=== PATIENT | female | born 1930 | race Caucasian/White ===

== ENCOUNTER 2017-05-19 21:59 | Emergency (ER) | payer OTHER ==
[~2017-05-19] VITALS: Ht 157.5 cm; Wt 73.9 kg
[~2017-05-19 21:59] MED LIST: CALC-20 PO; CHOL400C PO; DOCU100C31 PO; HYDR25TA4 PO; MULTTAB58 PO; NRN100 PO; POLY335019 PO; PROP120C PO; TRAM-10 PO
[2017-05-19] MEDS ORDERED: ALBUT/IPRATROP 3MG/0.5MG NEB 3 ML VIAL INH STA (22:08)
[2017-05-19] MEDS ORDERED: MoRPHine SULFATE 4 MG/ML 1 ML CARP\\VIAL IV STA (22:15)
[2017-05-19 22:24] VITALS: Ht 157.5 cm; Wt 73.9 kg
[2017-05-19 22:33] LABS: ISTAT CREATININE 0.8 mg/dl (0.6-1.3); ISTAT HEMOGLOBIN 10.9 g/dl (12.0-16.0); ISTAT IONIZED CALCIUM 1.22 mmol/l (1.12-1.32)
--- NOTE | 2017-05-19 22:34 | DIAGNOSTIC IMAGING REPORT ---
CHEST ONE VIEW PORTABLE HISTORY: 86 years-old Female sob acute shortness of breath COMPARISON: Chest radiograph 03/01/2016 TECHNIQUE: Portable upright AP view of the chest FINDINGS: Cardiomediastinal and hilar silhouettes are within normal limits. Atherosclerosis of the aorta. No pneumothorax, pleural effusion or focal airspace consolidation. Mild biapical pleural parenchymal scarring redemonstrated. There are degenerative changes of the spine and shoulders. Intramedullary gerda of the left humerus is noted with 2 proximal fixation screws. Remote left-sided rib fractures. IMPRESSION: No acute cardiopulmonary process. The above report was generated using voice recognition software. It may contain grammatical, syntax or spelling errors. Electronically signed by: Maged Andrade M.D. 05/19/2017 10:32 PM Dictated Date/Time: 05/19/2017 10:30 PM
[2017-05-19 22:36] LABS: BASO % 0.3 %; BASO ABS # 0.05 K/uL (0-0.2); HEMATOCRIT 31.7 % (37-47); IG% 1.8 %; LYMPH ABS # 2.01 K/uL (1.2-3.4); MEAN CELL VOLUME 92.2 fL (80-100); MEAN CORPUSCULAR HEMOGLOBIN 29.1 pg (25-34); MEAN CORPUSCULAR HGB CONC 31.5 g/dl (32-36); MONO % 3.1 %; NEUT % 78.8 %; PLATELET COUNT 330 K/uL (130-400); RED BLOOD COUNT 3.44 M/uL (4.2-5.4); WHITE BLOOD COUNT 14.35 K/uL (4.8-10.8)
--- NOTE | 2017-05-19 22:54 | DIAGNOSTIC IMAGING REPORT ---
HEAD WITHOUT CONTRAST (CT) CLINICAL HISTORY: 86 years-old Female with fall, hit head, CP/sob. Acute shortness of breath with head trauma TECHNIQUE: Multiple axial CT images of the head were obtained without contrast. A dose lowering technique was utilized adhering to the principles of ALARA. COMPARISON: None. FINDINGS: No acute intracranial hemorrhage, midline shift, mass, large territorial ischemia or abnormal extra-axial collection. Mild atrophy. Ill-defined areas of low attenuation within the subcortical, deep and periventricular white matter suggests chronic microvascular ischemic changes. The calvarium is intact. The paranasal sinuses, mastoid air cells, and middle ear cavities are clear. IMPRESSION: 1. No acute intracranial abnormality. Negative for hemorrhage or calvarial fracture. 2. Atrophy with chronic microvascular ischemic changes. The above report was generated using voice recognition software. It may contain grammatical, syntax or spelling errors. Electronically signed by: Maged Andrade M.D. 05/19/2017 10:53 PM Dictated Date/Time: 05/19/2017 10:51 PM
[2017-05-19 22:58] LABS: BLOOD UREA NITROGEN 14 mg/dl (7-18); BUN/CREATININE RATIO 17.7 (10-20); CALCIUM 9.3 mg/dl (8.5-10.1); CARBON DIOXIDE 30 mmol/L (21-32); CHLORIDE 101 mmol/L (98-107); CREATININE 0.81 mg/dl (0.60-1.20); GLUCOSE 108 mg/dl (70-99); POTASSIUM 3.6 mmol/L (3.5-5.1); SODIUM 138 mmol/L (136-145)
[2017-05-19] MEDS ORDERED: OPTIRAY 320 IV PRN (23:00)
--- NOTE | 2017-05-19 23:08 | DIAGNOSTIC IMAGING REPORT ---
CHEST CT WITH CONTRAST HISTORY: Acute trauma status post fall fall, hit head, CP/sob TECHNIQUE: Multiaxial CT images of the chest were performed following the intravenous administration of contrast. A dose lowering technique was utilized adhering to the principles of ALARA. COMPARISON: CT thoracic spine of same day FINDINGS: thyroid goiter noted. No pathologic adenopathy. Moderate enlargement of the heart without pericardial effusion. Moderate plaquing of the thoracic aorta without aneurysm or dissection. The opacified pulmonary arterial tree is unremarkable. Trace left pleural effusion. Small to moderate left pneumothorax with visceral pleural separation measuring up to 1.7 cm at the apex. Pulmonary contusion of the left lung apex is noted measuring up to 2.5 x 2.1 cm. Mild biapical pleural parenchymal scarring. Central airways are patent. No acute amount of the imaged upper abdomen. Gallstones are partially imaged. Acute mildly comminuted fractures are seen involving the left posterior second, third and fourth ribs. There is mild displacement of the second rib fracture. Deep tissue air noted adjacent to the rib fractures. Degenerative changes of the spine. Compression deformity at L1 further discussed on spine CT's. IMPRESSION: 1. Small to moderate left-sided hydropneumothorax with pleural separation measuring 1.7 cm of the left lung apex secondary to mildly comminuted and mildly displaced fractures of the left posterior second, third and fourth ribs. Small pulmonary contusion of the apical posterior segment left upper lobe also noted. 2. Compression deformity of L1 further discussed on CT lumbar spine study of same day. 3. Cholelithiasis. 4. Thyroid goiter. Electronically signed by: Maged Andrade M.D. 05/19/2017 11:06 PM Dictated Date/Time: 05/19/2017 10:59 PM
--- NOTE | 2017-05-19 23:11 | DIAGNOSTIC IMAGING REPORT ---
CERVICAL SPINE W/O CLINICAL HISTORY: 86 years-old Female with fall, hit head, CP/sob. Acute neck injury status post fall COMPARISON: CT head and CT chest of same day. TECHNIQUE: Multiple axial CT images of the cervical spine were obtained without contrast. A dose lowering technique was utilized adhering to the principles of ALARA. FINDINGS: No acute fracture or dislocation identified involving the cervical spine. Trace left mastoid effusion. The bones appear osteopenic. Multilevel facet arthropathy, intervertebral disc space narrowing and endplate spurring throughout the cervical spine results in varying degrees of central canal and foraminal narrowing, sensitivity of which is better determined by MR. Comminuted fractures are seen involving the posterior aspects of the left second third ribs with associated deep tissue air and left-sided hydropneumothorax. Left apical pulmonary contusion. Secretions noted within the esophagus. Thyroid goiter noted. Atherosclerosis of the carotid bulbs. IMPRESSION: 1. No acute cervical spine fracture or subluxation. 2. Comminuted fractures of the posterior left second and third ribs with left sided hydropneumothorax and left apical pulmonary contusion. These findings are further discussed on chest CT of same day. 3. Thyroid goiter. 4. Multilevel degenerative changes of the cervical spine. The above report was generated using voice recognition software. It may contain grammatical, syntax or spelling errors. Electronically signed by: Maged Andrade M.D. 05/19/2017 11:09 PM Dictated Date/Time: 05/19/2017 11:06 PM
--- NOTE | 2017-05-19 23:22 | DIAGNOSTIC IMAGING REPORT ---
THORACIC SPINE WITHOUT HISTORY: 86 years-old Female fall, hit head, CP/sob acute back injury status post fall COMPARISON: CT chest and CT lumbar spine of same day TECHNIQUE: Multiple axial CT images of the thoracic spine were obtained without contrast. A dose lowering technique was used consistent with the principals of ALARA. FINDINGS: Age-indeterminate 30% compression deformity of the L1 vertebral body is noted with 3 mm retropulsion involving the posterior inferior endplate. Advanced endplate degenerative changes are also noted at this level. No additional compression deformity or malalignment identified. The bones appear osteopenic. Multilevel endplate spurring and intervertebral disc space narrowing. Comminuted fractures of multiple left ribs are seen as discussed on chest CT. Left sided hydropneumothorax redemonstrated. No high-grade central canal narrowing identified.. Thyroid goiter. IMPRESSION: 1. No acute fracture or subluxation of the thoracic spine identified. 2. Age-indeterminate 30% anterior endplate compression deformity of L1 with 3 mm retropulsion. 3. Multiple left-sided rib fractures with left hydropneumothorax again seen, as discussed on CT chest of same day. The above report was generated using voice recognition software. It may contain grammatical, syntax or spelling errors. Electronically signed by: Maged Andrade M.D. 05/19/2017 11:21 PM Dictated Date/Time: 05/19/2017 11:16 PM
--- NOTE | 2017-05-19 23:28 | DIAGNOSTIC IMAGING REPORT ---
LUMBAR SPINE WITHOUT HISTORY: 86 years-old Female fall, hit head, CP/sob acute back injury status post fall COMPARISON: CT thoracic spine of same day TECHNIQUE: Multiple axial CT images of the lumbar spine were obtained without contrast. A dose lowering technique was used consistent with the principals of ALARA. FINDINGS: 30% anterior endplate compression deformity of L1 with 3 mm retropulsion. Multilevel advanced discogenic degenerative changes and facet arthropathy. Mild levoscoliosis. Degenerative changes involve the bilateral SI joints. No sacral fracture identified. Bones appear moderately demineralized. Atherosclerosis of the aorta with mild ectasia, 2.1 cm. No acute intra-abdominal or paraspinal abnormality. 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 IMPRESSION: 1. 30% anterior endplate compression deformity of L1 with 3 mm retropulsion is age indeterminate without comparison. 2. Multilevel discogenic degenerative changes, spondylitic spurring and facet arthropathy. 3. 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 The above report was generated using voice recognition software. It may contain grammatical, syntax or spelling errors. Electronically signed by: Maged Andrade M.D. 05/19/2017 11:26 PM Dictated Date/Time: 05/19/2017 11:23 PM
--- NOTE | 2017-05-19 23:32 | DIAGNOSTIC IMAGING REPORT ---
ABDOMEN AND PELVIS CT WITH IV CONTRAST HISTORY: Acute trauma status post fall fall, hit head, CP/sob TECHNIQUE: Multiaxial CT images of the abdomen and pelvis were performed following the use of intravenous contrast. A dose lowering technique was utilized adhering to the principles of ALARA. COMPARISON STUDY: CT chest of same day. FINDINGS: Study is moderately limited secondary to motion artifact. Small moderate left-sided hydropneumothorax redemonstrated. Right lung base is clear. No pneumoperitoneum. No pneumatosis identified. Imaged inferior cardiac chambers are unremarkable. 7 mm low attenuating lesion of the posterior right hepatic lobe is indeterminate and may reflect a cyst. No intrahepatic biliary ductal dilation. Cholelithiasis without CT evidence of acute cholecystitis. Spleen and adrenal glands are unremarkable. 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 Moderate to severe diffuse pancreatic atrophy noted. Renal sinus cysts are present bilaterally. Mild renal parenchyma thinning is noted bilaterally without renal calculi or hydronephrosis. Urinary bladder and pelvic structures are suboptimally evaluated secondary to streak artifact from right hip arthroplasty. Atherosclerosis of the aorta with mild ectasia, 2.1 cm. No aneurysm. No bulky adenopathy. There is no bowel obstruction or focal bowel wall thickening. Moderate colonic diverticulosis without diverticulitis. Soft tissues are unremarkable. 30% anterior plate compression deformity of L1 with 3 mm retropulsion is age indeterminate. The bones appear osteoporotic. No sacral fracture identified. Multilevel degenerative changes of the spine. IMPRESSION: 1. Small to moderate left-sided hydropneumothorax redemonstrated. 2. 30% anterior endplate compression deformity of L1 with 3 mm retropulsion is age indeterminate without comparison. 3. No evidence of solid organ injury or pneumatosis. 4. Cholelithiasis. 5. Sigmoid colon diverticulosis. Electronically signed by: Maged Andrade M.D. 05/19/2017 11:31 PM Dictated Date/Time: 05/19/2017 11:26 PM
[2017-05-20] MEDS ORDERED: SODIUM CHLORIDE 0.9% 1000ML 1,000 ML IV STA (00:03)
[2017-05-20 00:13] LABS: ANISOCYTOSIS PRESENT; COMPLETE YES; OVALOCYTES 1+; POIKILOCYTOSIS PRESENT
[2017-05-20] MEDS ORDERED: MoRPHine SULFATE 4 MG/ML 1 ML CARP\\VIAL IV STA (00:40)
--- NOTE | 2017-05-20 00:58 | EMERGENCY ROOM VISIT NOTE ---
ED Visit Note First contact with patient: 22:02 I have seen and examined this patient with Jahaira Mayers and generally agree with the treatment plan as discussed. Problem List Medical Problems: (1) Cerebrovascular disease Status: Chronic (2) Cholelithiasis Status: Chronic (3) CVA (cerebral infarction) Permanent Comment: noted on head CT, not clinically evident, no residual Status: Resolved (4) Diverticular disease of colon Status: Chronic (5) Diverticulitis Status: Resolved (6) Dyslipidemia Status: Chronic (7) Hip fracture Status: Resolved (8) History of cervical cancer Status: Chronic (9) History of Clostridium difficile infection Status: Chronic (10) History of DVT (deep vein thrombosis) Permanent Comment: 1998 associated with ankle fracture Status: Resolved (11) Hypertension Status: Chronic (12) Migraine Status: Chronic Surgical Problems: (1) S/P knee replacement Status: Chronic (2) Status post appendectomy Status: Chronic (3) Status post cardiac catheterization Permanent Comment: [facility] 2008 minimal nonocclusive disease Status: Chronic (4) Status post hysterectomy Permanent Comment: cervical Ca Status: Chronic Current/Historical Medications Scheduled Calcium Carbonate-Vitamin D (Calcium 600 + D), 1 TAB PO DAILY Cholecalciferol (Vitamin D3 400), 400 UNITS PO DAILY Gabapentin (Gabapentin), 200 MG PO HS Hydrochlorothiazide (Hctz), 25 MG PO DAILY Multiple Vitamin (Multivitamin), 1 TAB PO DAILY Propranolol Hcl (Propranolol Hcl Er), 120 MG PO DAILY Scheduled PRN Docusate Sodium (Docusate Sodium), 100 MG PO BID PRN for Constipation Polyethylene Glycol 3350 (Miralax), 17 GM PO DAILY PRN for Constipation Tramadol (Ultram), 100 MG PO BID PRN for Pain Allergies Coded Allergies: No Known Allergies (Unverified , 03/01/16) Vital Signs Date Time Temp Pulse Resp B/P (MAP) Pulse Ox O2 Delivery O2 Flow Rate FiO2 05/20/17 00:36 64 21 97 Nasal Cannula 4.0 05/20/17 00:31 124/110 05/20/17 00:21 71 23 95 05/20/17 00:06 65 21 97 05/19/17 23:51 66 23 100 05/19/17 23:46 124/74 05/19/17 23:36 62 19 98 05/19/17 23:31 110/57 05/19/17 23:30 65 22 99 Nasal Cannula 4.0 05/19/17 23:17 127/91 05/19/17 23:15 66 18 100 05/19/17 23:01 123/73 05/19/17 23:00 67 21 100 05/19/17 22:55 67 20 152/74 100 Mask 5.0 05/19/17 22:30 64 20 137/84 99 Nasal Cannula 2.0 05/19/17 22:24 36.6 65 22 142/113 88 Room Air 05/19/17 22:13 62 Laboratory Results 05/19/17 22:15 Red Blood Count 3.44, Mean Corpuscular Volume 92.2, Mean Corpuscular Hemoglobin 29.1, Mean Corpuscular Hemoglobin Concent 31.5, Mean Platelet Volume 11.0, Neutrophils (%) (Auto) 78.8, Lymphocytes (%) (Auto) 14.0, Monocytes (%) (Auto) 3.1, Eosinophils (%) (Auto) 2.0, Basophils (%) (Auto) 0.3, Neutrophils # (Auto) 11.29, Lymphocytes # (Auto) 2.01, Monocytes # (Auto) 0.45, Eosinophils # (Auto) 0.29, Basophils # (Auto) 0.05 05/19/17 22:15 Test 05/19/17 22:15 05/19/17 22:19 White Blood Count 14.35 K/uL (4.8-10.8) Red Blood Count 3.44 M/uL (4.2-5.4) Hemoglobin 10.0 g/dL (12.0-16.0) Hematocrit 31.7 % (37-47) Mean Corpuscular Volume 92.2 fL (80-100) Mean Corpuscular Hemoglobin 29.1 pg (25-34) Mean Corpuscular Hemoglobin Concent 31.5 g/dl (32-36) Platelet Count 330 K/uL (130-400) Mean Platelet Volume 11.0 fL (7.4-10.4) Neutrophils (%) (Auto) 78.8 % Lymphocytes (%) (Auto) 14.0 % Monocytes (%) (Auto) 3.1 % Eosinophils (%) (Auto) 2.0 % Basophils (%) (Auto) 0.3 % Neutrophils # (Auto) 11.29 K/uL (1.4-6.5) Lymphocytes # (Auto) 2.01 K/uL (1.2-3.4) Monocytes # (Auto) 0.45 K/uL (0.11-0.59) Eosinophils # (Auto) 0.29 K/uL (0-0.5) Basophils # (Auto) 0.05 K/uL (0-0.2) RDW Standard Deviation 69.5 fL (36.4-46.3) RDW Coefficient of Variation 20.5 % (11.5-14.5) Immature Granulocyte % (Auto) 1.8 % Immature Granulocyte # (Auto) 0.26 K/uL (0.00-0.02) Poikilocytosis PRESENT Anisocytosis PRESENT Ovalocytes 1+ Est Creatinine Clear Calc Drug Dose 46.9 ml/min Estimated GFR () 76.2 Estimated GFR (Non- 65.8 BUN/Creatinine Ratio 17.7 (10-20) Calcium Level 9.3 mg/dl (8.5-10.1) Troponin I < 0.015 ng/ml (0-0.045) Bedside Hemoglobin 10.9 g/dl (12.0-16.0) Bedside Hematocrit 32 % (37-47) Bedside Sodium 138 mEq/L (135-144) Bedside Potassium 3.6 mEq/L (3.3-5.0) Bedside Chloride 98 mEq/L (101-112) Bedside Total CO2 28 mEq/l (24-31) Anion Gap 16.0 mmol/L (16-25) Bedside Blood Urea Nitrogen 14 mg/dl (7-18) Bedside Creatinine 0.8 mg/dl (0.6-1.3) Bedside Glucose (other) 112 mg/dl (70-99) Bedside Ionized Calcium ([place]acon) 1.22 mmol/l (1.12-1.32) Medications Administered Medications (Trade) Dose Ordered Sig/Gin Route Start Time Stop Time Status Last Admin Dose Admin Albuterol/ Ipratropium (Duoneb) 3 ml NOW STAT INH 05/19/17 22:08 05/19/17 22:11 DC 05/19/17 22:29 3 ML Morphine Sulfate (MoRPHine SULFATE INJ) 4 mg NOW STAT IV 05/19/17 22:15 05/19/17 22:16 DC 05/19/17 22:29 4 MG Sodium Chloride 1,000 ml @ 75 mls/hr [id number] STAT IV 05/20/17 00:03 05/20/17 13:22 05/20/17 00:21 75 MLS/HR Morphine Sulfate (MoRPHine SULFATE INJ) 4 mg NOW STAT IV 05/20/17 00:40 05/20/17 00:41 DC 05/20/17 00:46 4 MG Departure Information Referrals Maritza Osuna D.O. (PCP) Patient Instructions On [facility]
[2017-05-20 01:06] VITALS: BP 132/77; PULSE 64; TEMP 36.6; O2SAT 97
--- NOTE | 2017-05-20 05:14 | EMERGENCY ROOM VISIT NOTE ---
History First contact with patient: 22:02 Chief Complaint: FALL Stated Complaint: FALL, LEFT BACK & RIB PAIN History of Present Illness The patient is a 86 year old female who presents to the Emergency Room with complaints of mechanical fall just prior to arrival. Patient states she slipped and fell backwards into the wall injuring her left upper back and hitting her head. Pain currently 8 out of 10. Palpation makes it worse and that makes it better. Patient is not on blood thinners. Patient denies neck pain, abdominal pain, arm pain, hip pain, leg pain. Patient complains of left upper back chest wall pain and having shortness of breath. Patient states she felt fine prior to the fall. Review of Systems See HPI for pertinent positives & negatives. A total of 10 systems reviewed and were otherwise negative. Past Medical/Surgical History Medical Problems: (1) Cerebrovascular disease (2) Cholelithiasis (3) CVA (cerebral infarction) (4) Diverticular disease of colon (5) Diverticulitis (6) Dyslipidemia (7) Hip fracture (8) History of cervical cancer (9) History of Clostridium difficile infection (10) History of DVT (deep vein thrombosis) (11) Hypertension (12) Migraine Surgical Problems: (1) S/P knee replacement (2) Status post appendectomy (3) Status post cardiac catheterization (4) Status post hysterectomy Family History Hypertension MOTHER Lung cancer BROTHER Social History Smoking Status: Never Smoker Drug Use: none Housing Status: lives alone Occupation Status: unemployed Current/Historical Medications Scheduled Calcium Carbonate-Vitamin D (Calcium 600 + D), 1 TAB PO DAILY Cholecalciferol (Vitamin D3 400), 400 UNITS PO DAILY Gabapentin (Gabapentin), 200 MG PO HS Hydrochlorothiazide (Hctz), 25 MG PO DAILY Multiple Vitamin (Multivitamin), 1 TAB PO DAILY Propranolol Hcl (Propranolol Hcl Er), 120 MG PO DAILY Scheduled PRN Docusate Sodium (Docusate Sodium), 100 MG PO BID PRN for Constipation Polyethylene Glycol 3350 (Miralax), 17 GM PO DAILY PRN for Constipation Tramadol (Ultram), 100 MG PO BID PRN for Pain Physical Exam Vital Signs Date Time Temp Pulse Resp B/P (MAP) Pulse Ox O2 Delivery O2 Flow Rate FiO2 05/20/17 01:06 36.6 64 21 132/77 97 05/20/17 00:36 64 21 97 Nasal Cannula 4.0 05/20/17 00:31 124/110 05/20/17 00:21 71 23 95 05/20/17 00:06 65 21 97 05/19/17 23:51 66 23 100 05/19/17 23:46 124/74 05/19/17 23:36 62 19 98 05/19/17 23:31 110/57 05/19/17 23:30 65 22 99 Nasal Cannula 4.0 05/19/17 23:17 127/91 05/19/17 23:15 66 18 100 05/19/17 23:01 123/73 05/19/17 23:00 67 21 100 05/19/17 22:55 67 20 152/74 100 Mask 5.0 05/19/17 22:30 64 20 137/84 99 Nasal Cannula 2.0 05/19/17 22:24 36.6 65 22 142/113 88 Room Air 05/19/17 22:13 62 Physical Exam PHYSICAL EXAM: VITALS: Vitals are noted on the nurse's note and reviewed by myself. Vital signs hypoxic GENERAL: Pleasant female working to breathe, in no acute distress, nondiaphoretic, well-developed well-nourished. SKIN: The skin was without obvious lacerations or abrasions. Capillary reflex less than 2 seconds. HEAD: Normocephalic atraumatic. EARS: External auditory canals clear, tympanic membranes pearly dasilva without erythema or effusion bilaterally. No hemotympanums. No mc sign. No mastoid tenderness. EYES: Pupils equal round and reactive to light and accommodation. Conjunctivae without injection, sclerae without icterus. Extraocular movements intact. NOSE: Patent, turbinates without inflammation or discharge. No sinus tenderness. No septal hematoma or bleeding. FACE: No facial bone tenderness. Full range of motion of the jaw without tenderness. MOUTH: Mucous membranes moist. Pharynx without erythema or exudate. Uvula midline. Airway patent. Tongue does not deviate. NECK: Supple without nuchal rigidity. Cervical spine is nontender. Full range of motion of the neck without tenderness. No JVD. HEART: Regular rate and rhythm LUNGS: Mild diffuse inspiration and end expiratory wheezes, rales or rhonchi. o retractions or accessory muscle use. Left lateral chest wall tenderness. ABDOMEN: Positive bowel sounds x 4. Normal tympanic percussion. Soft, nontender, without masses or organomegaly. No guarding or rebound tenderness. MUSCULOSKELETAL: No tenderness of the thoracic or lumbar spine. No tenderness with pelvic rocking. Full range of motion without tenderness to palpation in all extremities. Strength 5/5 throughout. Peripheral pulses 2+. NEURO: Patient was alert and oriented to person place and time. Normal Mini- Mental status exam. Normal sensation to light and sharp touch. Cerebellar function intact. No focal neurological deficits. Medical Decision & Procedures Laboratory Results 05/19/17 22:15 Red Blood Count 3.44, Mean Corpuscular Volume 92.2, Mean Corpuscular Hemoglobin 29.1, Mean Corpuscular Hemoglobin Concent 31.5, Mean Platelet Volume 11.0, Neutrophils (%) (Auto) 78.8, Lymphocytes (%) (Auto) 14.0, Monocytes (%) (Auto) 3.1, Eosinophils (%) (Auto) 2.0, Basophils (%) (Auto) 0.3, Neutrophils # (Auto) 11.29, Lymphocytes # (Auto) 2.01, Monocytes # (Auto) 0.45, Eosinophils # (Auto) 0.29, Basophils # (Auto) 0.05 05/19/17 22:15 Test 05/19/17 22:15 05/19/17 22:19 White Blood Count 14.35 K/uL (4.8-10.8) Red Blood Count 3.44 M/uL (4.2-5.4) Hemoglobin 10.0 g/dL (12.0-16.0) Hematocrit 31.7 % (37-47) Mean Corpuscular Volume 92.2 fL (80-100) Mean Corpuscular Hemoglobin 29.1 pg (25-34) Mean Corpuscular Hemoglobin Concent 31.5 g/dl (32-36) Platelet Count 330 K/uL (130-400) Mean Platelet Volume 11.0 fL (7.4-10.4) Neutrophils (%) (Auto) 78.8 % Lymphocytes (%) (Auto) 14.0 % Monocytes (%) (Auto) 3.1 % Eosinophils (%) (Auto) 2.0 % Basophils (%) (Auto) 0.3 % Neutrophils # (Auto) 11.29 K/uL (1.4-6.5) Lymphocytes # (Auto) 2.01 K/uL (1.2-3.4) Monocytes # (Auto) 0.45 K/uL (0.11-0.59) Eosinophils # (Auto) 0.29 K/uL (0-0.5) Basophils # (Auto) 0.05 K/uL (0-0.2) RDW Standard Deviation 69.5 fL (36.4-46.3) RDW Coefficient of Variation 20.5 % (11.5-14.5) Immature Granulocyte % (Auto) 1.8 % Immature Granulocyte # (Auto) 0.26 K/uL (0.00-0.02) Poikilocytosis PRESENT Anisocytosis PRESENT Ovalocytes 1+ Est Creatinine Clear Calc Drug Dose 46.9 ml/min Estimated GFR () 76.2 Estimated GFR (Non- 65.8 BUN/Creatinine Ratio 17.7 (10-20) Calcium Level 9.3 mg/dl (8.5-10.1) Troponin I < 0.015 ng/ml (0-0.045) Bedside Hemoglobin 10.9 g/dl (12.0-16.0) Bedside Hematocrit 32 % (37-47) Bedside Sodium 138 mEq/L (135-144) Bedside Potassium 3.6 mEq/L (3.3-5.0) Bedside Chloride 98 mEq/L (101-112) Bedside Total CO2 28 mEq/l (24-31) Anion Gap 16.0 mmol/L (16-25) Bedside Blood Urea Nitrogen 14 mg/dl (7-18) Bedside Creatinine 0.8 mg/dl (0.6-1.3) Bedside Glucose (other) 112 mg/dl (70-99) Bedside Ionized Calcium (Deacon) 1.22 mmol/l (1.12-1.32) Medications Administered Medications (Trade) Dose Ordered Sig/Gin Route Start Time Stop Time Status Last Admin Dose Admin Albuterol/ Ipratropium (Duoneb) 3 ml NOW STAT INH 05/19/17 22:08 05/19/17 22:11 DC 05/19/17 22:29 3 ML Morphine Sulfate (MoRPHine SULFATE INJ) 4 mg NOW STAT IV 05/19/17 22:15 05/19/17 22:16 DC 05/19/17 22:29 4 MG Sodium Chloride 1,000 ml @ 75 mls/hr [id number] STAT IV 05/20/17 00:03 05/20/17 02:24 DC 05/20/17 00:21 75 MLS/HR Morphine Sulfate (MoRPHine SULFATE INJ) 4 mg NOW STAT IV 05/20/17 00:40 05/20/17 00:41 DC 05/20/17 00:46 4 MG ED Course Prior records/ancillary studies reviewed. Triage Nursing notes reviewed. Additional history obtained from family The patient's history was concerning for traumatic injury Differential diagnosis: Etiologies such as fracture, dislocation, intra-abdominal, pneumothorax, intrathoracic , intracranial, neurologic, as well as other traumatic pathologies were entertained. Physical examination findings: As above. The patients vitals were hypoxic. ER treatment provided: IV Normal Saline hydration, 75 mL.hr Morphine, Zofran On reassessment the patient felt better. Vital signs were improving. Diagnostic interpretation by me: A 12 lead ECG revealed no emergent pathology. Normal sinus, normal intervals, no acute ST-T wave changes. Low voltage. Impression normal sinus rhythm with low voltage interpreted by myself The labs revealed anemia. Negative troponin Imaging studies: Chest x-ray concerning for left pneumothorax per my interpretation [~ rep ct add3]] CHEST CT WITH CONTRAST HISTORY: Acute trauma status post fall fall, hit head, CP/sob TECHNIQUE: Multiaxial CT images of the chest were performed following the intravenous administration of contrast. A dose lowering technique was utilized adhering to the principles of ALARA. COMPARISON: CT thoracic spine of same day FINDINGS: thyroid goiter noted. No pathologic adenopathy. Moderate enlargement of the heart without pericardial effusion. Moderate plaquing of the thoracic aorta without aneurysm or dissection. The opacified pulmonary arterial tree is unremarkable. Trace left pleural effusion. Small to moderate left pneumothorax with visceral pleural separation measuring up to 1.7 cm at the apex. Pulmonary contusion of the left lung apex is noted measuring up to 2.5 x 2.1 cm. Mild biapical pleural parenchymal scarring. Central airways are patent. No acute amount of the imaged upper abdomen. Gallstones are partially imaged. Acute mildly comminuted fractures are seen involving the left posterior second, third and fourth ribs. There is mild displacement of the second rib fracture. Deep tissue air noted adjacent to the rib fractures. Degenerative changes of the spine. Compression deformity at L1 further discussed on spine CT's. IMPRESSION: 1. Small to moderate left-sided hydropneumothorax with pleural separation measuring 1.7 cm of the left lung apex secondary to mildly comminuted and mildly displaced fractures of the left posterior second, third and fourth ribs. Small pulmonary contusion of the apical posterior segment left upper lobe also noted. 2. Compression deformity of L1 further discussed on CT lumbar spine study of same day. 3. Cholelithiasis. 4. Thyroid goiter. ABDOMEN AND PELVIS CT WITH IV CONTRAST HISTORY: Acute trauma status post fall fall, hit head, CP/sob TECHNIQUE: Multiaxial CT images of the abdomen and pelvis were performed following the use of intravenous contrast. A dose lowering technique was utilized adhering to the principles of ALARA. COMPARISON STUDY: CT chest of same day. FINDINGS: Study is moderately limited secondary to motion artifact. Small moderate left-sided hydropneumothorax redemonstrated. Right lung base is clear. No pneumoperitoneum. No pneumatosis identified. Imaged inferior cardiac chambers are unremarkable. 7 mm low attenuating lesion of the posterior right hepatic lobe is indeterminate and may reflect a cyst. No intrahepatic biliary ductal dilation. Cholelithiasis without CT evidence of acute cholecystitis. Spleen and adrenal glands are unremarkable. 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 Moderate to severe diffuse pancreatic atrophy noted. Renal sinus cysts are present bilaterally. Mild renal parenchyma thinning is noted bilaterally without renal calculi or hydronephrosis. Urinary bladder and pelvic structures are suboptimally evaluated secondary to streak artifact from right hip arthroplasty. Atherosclerosis of the aorta with mild ectasia, 2.1 cm. No aneurysm. No bulky adenopathy. There is no bowel obstruction or focal bowel wall thickening. Moderate colonic diverticulosis without diverticulitis. Soft tissues are unremarkable. 30% anterior plate compression deformity of L1 with 3 mm retropulsion is age indeterminate. The bones appear osteoporotic. No sacral fracture identified. Multilevel degenerative changes of the spine. IMPRESSION: 1. Small to moderate left-sided hydropneumothorax redemonstrated. 2. 30% anterior endplate compression deformity of L1 with 3 mm retropulsion is age indeterminate without comparison. 3. No evidence of solid organ injury or pneumatosis. 4. Cholelithiasis. 5. Sigmoid colon diverticulosis. HEAD WITHOUT CONTRAST (CT) CLINICAL HISTORY: 86 years-old Female with fall, hit head, CP/sob. Acute shortness of breath with head trauma TECHNIQUE: Multiple axial CT images of the head were obtained without contrast. A dose lowering technique was utilized adhering to the principles of ALARA. COMPARISON: None. FINDINGS: No acute intracranial hemorrhage, midline shift, mass, large territorial ischemia or abnormal extra-axial collection. Mild atrophy. Ill-defined areas of low attenuation within the subcortical, deep and periventricular white matter suggests chronic microvascular ischemic changes. The calvarium is intact. The paranasal sinuses, mastoid air cells, and middle ear cavities are clear. IMPRESSION: 1. No acute intracranial abnormality. Negative for hemorrhage or calvarial fracture. 2. Atrophy with chronic microvascular ischemic changes. The above report was generated using voice recognition software. It may contain grammatical, syntax or spelling errors. HISTORY: 86 years-old Female fall, hit head, CP/sob acute back injury status post fall COMPARISON: CT thoracic spine of same day TECHNIQUE: Multiple axial CT images of the lumbar spine were obtained without contrast. A dose lowering technique was used consistent with the principals of ALARA. FINDINGS: 30% anterior endplate compression deformity of L1 with 3 mm retropulsion. Multilevel advanced discogenic degenerative changes and facet arthropathy. Mild levoscoliosis. Degenerative changes involve the bilateral SI joints. No sacral fracture identified. Bones appear moderately demineralized. Atherosclerosis of the aorta with mild ectasia, 2.1 cm. No acute intra-abdominal or paraspinal abnormality. 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 IMPRESSION: 1. 30% anterior endplate compression deformity of L1 with 3 mm retropulsion is age indeterminate without comparison. 2. Multilevel discogenic degenerative changes, spondylitic spurring and facet arthropathy. 3. 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 Electronically signed by: Maged Andrade M.D. Electronically signed by: Maged Andrade M.D. CERVICAL SPINE W/O CLINICAL HISTORY: 86 years-old Female with fall, hit head, CP/sob. Acute neck injury status post fall COMPARISON: CT head and CT chest of same day. TECHNIQUE: Multiple axial CT images of the cervical spine were obtained without contrast. A dose lowering technique was utilized adhering to the principles of ALARA. FINDINGS: No acute fracture or dislocation identified involving the cervical spine. Trace left mastoid effusion. The bones appear osteopenic. Multilevel facet arthropathy, intervertebral disc space narrowing and endplate spurring throughout the cervical spine results in varying degrees of central canal and foraminal narrowing, sensitivity of which is better determined by MR. Comminuted fractures are seen involving the posterior aspects of the left second third ribs with associated deep tissue air and left-sided hydropneumothorax. Left apical pulmonary contusion. Secretions noted within the esophagus. Thyroid goiter noted. Atherosclerosis of the carotid bulbs. IMPRESSION: 1. No acute cervical spine fracture or subluxation. 2. Comminuted fractures of the posterior left second and third ribs with left sided hydropneumothorax and left apical pulmonary contusion. These findings are further discussed on chest CT of same day. 3. Thyroid goiter. 4. Multilevel degenerative changes of the cervical spine. The above report was generated using voice recognition software. It may contain grammatical, syntax or spelling errors. Consultation: A consultation was placed with Dr. Rashad Castaneda. The case was discussed and diagnostics were reviewed. The patient was transferred to their facility for further evaluation and treatment for multiple rib fractures, pneumothorax and pulmonary contusion. This appears to be consistent with pneumothorax, pulmonary contusion and rib fractures. Patient states she is a full code and would like being done for her tonight. Patient was reassessed multiple times. She had great improvement after being medicated as above. She had multiple injuries and was transferred to a trauma center. She pneumothorax with multiple rib fractures and low O2 sats. Her O2 sats came up nicely with a few liters nasal cannula. She has a chronic appearing lumbar compression fracture which is known per patient. Patient did not have acute abdomen on exam. She was speaking in full sentences. She is not on blood thinners. By the evaluation outlined above emergent etiologies such as intra-abdominal, hemothorax, intracranial, neurologic,as well as others were deemed relatively unlikely. The pt informed about the findings as listed above. All questions were answered and pleased with the treatment. Case reviewed with my attending Medical Decision As above Head Trauma GCS Score: 15 Medication Reconcilliation Current Medication List: was personally reviewed by me Blood Pressure Screening Patient's blood pressure: Normal blood pressure Impression Primary Impression: Pneumothorax Additional Impressions: Pulmonary contusion Ribs, multiple fractures Fall Head injury Anemia Departure Information Dispostion Transfer Acute Care Facility Condition [facility] Referrals Maritza Osuna D.O. (PCP) Forms HOME CARE DOCUMENTATION FORM, IMPORTANT VISIT INFORMATION Patient Instructions My [facility] Problem Qualifiers Primary Impression: Pneumothorax Pneumothorax type: traumatic Encounter type: initial encounter Qualified Codes: S27.0XXA - Traumatic pneumothorax, initial encounter
== END 2017-05-20 01:07 | disposition short-term general hospital (02) ==
LOC: EDBD 21:59 → C.EDA 22:00
DX: S27.0XXA Traumatic pneumothorax, initial encounter (principal); S27.321A Contusion of lung, unilateral, initial encounter; S22.42XA Multiple fractures of ribs, left side, initial encounter for closed fracture; S09.90XA Unspecified injury of head, initial encounter; D64.9 Anemia, unspecified; W01.198A Fall on same level from slipping, tripping and stumbling with subsequent striking against other object, initial encounter; I10 Essential (primary) hypertension; G43.909 Migraine, unspecified, not intractable, without status migrainosus; Z86.73 Personal history of transient ischemic attack (TIA), and cerebral infarction without residual deficits; Z85.41 Personal history of malignant neoplasm of cervix uteri; Z86.718 Personal history of other venous thrombosis and embolism; Z96.659 Presence of unspecified artificial knee joint; Z90.89 Acquired absence of other organs; Z90.710 Acquired absence of both cervix and uterus; Z82.49 Family history of ischemic heart disease and other diseases of the circulatory system; Z80.1 Family history of malignant neoplasm of trachea, bronchus and lung

== ENCOUNTER 2017-08-03 12:35 | Inpatient (IN) | payer OTHER ==
[~2017-08-03] VITALS: Ht 157.5 cm; Wt 60.0 kg
[2017-08-03] VITALS (9 sets, daily range): BP systolic 87–132; BP diastolic 42–73; PULSE 55–67; TEMP 36.6–37.1; O2SAT 91–100; Ht 157.5 cm; Wt 60.0 kg
--- NOTE | 2017-08-03 13:29 | DIAGNOSTIC IMAGING REPORT ---
CHEST ONE VIEW PORTABLE CLINICAL HISTORY: 87 years-old Female presenting with CHEST PAIN. TECHNIQUE: Portable upright AP view of the chest was obtained. COMPARISON: 05/19/2017. FINDINGS: Atherosclerosis of the aortic arch. Cardiac silhouette normal in size. Pulmonary vascular prominence unchanged. Vague bibasilar opacities greater on the left unchanged. No large pleural effusion or pneumothorax. Intramedullary nail and interlocking screw fixation of the left humerus. Suggestion of radiolucency at the level of the humeral head/neck and proximal screw. Upper abdomen normal. IMPRESSION: 1. No acute cardiopulmonary disease. 2. Stable basilar scarring and/or atelectasis. 3. Suggestion of increased radiolucency at the left humeral head/neck associated with the proximal interlocking screw and intramedullary nail fixation. This could suggest loosening or infection. Electronically signed by: Mckinley Kelly M.D. 08/03/2017 1:28 PM Dictated Date/Time: 08/03/2017 1:24 PM
[2017-08-03 13:35] LABS: BASO % 0.6 %; BASO ABS # 0.02 K/uL (0-0.2); EOS % 7.2 %; EOS ABS # 0.23 K/uL (0-0.5); HEMATOCRIT 23.8 % (37-47); HEMOGLOBIN 7.8 g/dL (12.0-16.0); IG# 0.02 K/uL (0.00-0.02); LYMPH % 19.4 %; LYMPH ABS # 0.62 K/uL (1.2-3.4); MEAN CELL VOLUME 85.9 fL (80-100); MEAN CORPUSCULAR HEMOGLOBIN 28.2 pg (25-34); MEAN CORPUSCULAR HGB CONC 32.8 g/dl (32-36); MEAN PLATELET VOLUME 10.2 fL (7.4-10.4); MONO % 3.1 %; NEUT % 69.1 %; PLATELET COUNT 379 K/uL (130-400); RED CELL DISTRIBUTION WIDTH CV 23.4 % (11.5-14.5); RED CELL DISTRIBUTION WIDTH SD 72.1 fL (36.4-46.3); WHITE BLOOD COUNT 3.19 K/uL (4.8-10.8)
[2017-08-03 13:38] LABS: INR 1.1 (0.9-1.1); PTT PATIENT 23.3 SECONDS (21.0-31.0)
[2017-08-03] MEDS ORDERED: SULF800T23 PO (13:43)
[2017-08-03] MEDS ORDERED: PRAM0.5T10 PO (13:43)
[2017-08-03 13:46] LABS: ALBUMIN 2.6 gm/dl (3.4-5.0); CREATININE 1.11 mg/dl (0.60-1.20); POTASSIUM 3.1 mmol/L (3.5-5.1)
--- NOTE | 2017-08-03 13:48 | DIAGNOSTIC IMAGING REPORT ---
HEAD CT NONCONTRAST CT DOSE: 638.56 mGycm HISTORY: weakness TECHNIQUE: Multiaxial CT images of the head were performed without the use of intravenous contrast. Automated exposure control was utilized for this study. A dose lowering technique was utilized adhering to the principles of ALARA. Comparison: Head CT 05/19/2017. Findings: Mild mucosal thickening within the left sphenoid sinus. No fluid levels within the paranasal sinuses. The mastoid air cells are clear. The calvarium and skull base are intact. There is no mass, hematoma, midline shift, acute infarct. White matter hypodensity is nonspecific but suggestive of microvascular ischemic change. The ventricles and sulci demonstrate mild age-related involutional changes. Impression: No acute intracranial abnormality. Atrophy and microvascular ischemic changes. Electronically signed by: Antony Falcon M.D. 08/03/2017 1:47 PM Dictated Date/Time: 08/03/2017 1:40 PM
[2017-08-03 13:49] LABS: TOTAL PROTEIN 6.9 gm/dl (6.4-8.2)
--- NOTE | 2017-08-03 14:16 | EMERGENCY ROOM VISIT NOTE ---
History Report prepared by Wil: Jung Johnson Under the Supervision of: Dr. Dong Sheets M.D. First contact with patient: 12:49 Chief Complaint: ABNORMAL LABS Stated Complaint: ABNORMAL LABS History of Present Illness The patient is a 87 year old female who presents to the Emergency Room for evaluation of low hemoglobin. She had blood work yesterday and was called today with her results. She was told that her hemoglobin was "dangerously low", but was not given an exact value. Per son, the patient has had a decline in mental status over the past month ever since she was admitted to the hospital for a punctured lung s/p fall. He states that she has been forgetful ever since. He notes that the patient had a CT at this time which was normal. The patient is currently being treated for a UTI with Bactrim. She currently complains of cough and nausea. She had a low-grade fever yesterday. The patient denies shortness of breath, body aches, abdominal pain, vomiting, diarrhea, bloody stool, melena, or dizziness. She is not on any blood thinners. She has a history of diverticulitis, but has no known history of GI bleeding. Source of History: patient, family (family) Onset: Yesterday Symptom Intensity: "dangerously low" Quality: other (Low hemoglobin) Timing: constant Associated Symptoms: + fevers (yesterday), + cough, + nausea, No SOB, No vomiting, No abdominal pain, No melena, No hematochezia, No diarrhea Note: The patient denies dizziness, or body aches. Review of Systems See HPI for pertinent positives & negatives. A total of 10 systems reviewed and were otherwise negative. Past Medical & Surgical Medical Problems: (1) Cerebrovascular disease (2) Cholelithiasis (3) CVA (cerebral infarction) (4) Diverticular disease of colon (5) Diverticulitis (6) Dyslipidemia (7) Hip fracture (8) History of cervical cancer (9) History of Clostridium difficile infection (10) History of DVT (deep vein thrombosis) (11) Hypertension (12) Migraine Surgical Problems: (1) S/P knee replacement (2) Status post appendectomy (3) Status post cardiac catheterization (4) Status post hysterectomy Old medical records were reviewed. Nurse's notes were reviewed and I agree with. Family History Hypertension MOTHER Lung cancer BROTHER Social History Smoking Status: Never Smoker Drug Use: none Housing Status: lives alone Occupation Status: unemployed Current/Historical Medications Scheduled Calcium Carbonate-Vitamin D (Calcium 600 + D), 1 TAB PO DAILY Cholecalciferol (Vitamin D3 400), 400 UNITS PO DAILY Hydrochlorothiazide (Hctz), 25 MG PO DAILY Multiple Vitamin (Multivitamin), 1 TAB PO DAILY Pramipexole Dihydrochloride (Pramipexole Dihydrochlori), 0.5 MG PO HS Propranolol Hcl (Propranolol Hcl Er), 120 MG PO DAILY Sulfa/Trimethoprim (Bactrim Ds 800MG/160MG), 1 TAB PO BID Scheduled PRN Tramadol (Ultram), 100 MG PO BID PRN for Pain Allergies Coded Allergies: No Known Allergies (Unverified , 08/03/17) Physical Exam Vital Signs Date Time Temp Pulse Resp B/P (MAP) Pulse Ox O2 Delivery O2 Flow Rate FiO2 08/03/17 13:50 59 16 104/54 97 Nasal Cannula 3.0 08/03/17 12:47 96 Nasal Cannula 4.0 08/03/17 12:47 60 08/03/17 12:47 96 Nasal Cannula 4.0 08/03/17 12:43 37.2 58 16 108/73 89 Room Air Physical Exam General: Non-ill appearing older female in no acute distress. Hard of hearing. HEENT: Normal cephalic atraumatic. Pupils are equal round and reactive to light. Extraocular movements are intact. Mildly pale conjunctiva. Oropharynx is pink with moist mucous membranes. No swelling of the mouth lips or tongue. Neck: Supple with a midline trachea. No meningeal signs or stiffness, no JVD or bruits. No Stridor. Chest: Clear to auscultation bilaterally. No wheezes or rhonchi. No increased work of breathing. Heart: regular rate and rhythm. Abdomen: Soft nontender, nondistended without rebound guarding or rigidity. Rectal: No lesions. Trace brown stool, guaiac negative. Extremities: No cyanosis clubbing or edema. No calf tenderness or assymetry Spine/Back. Non tender to palpation. No CVA tenderness Skin: Good turgor without rashes. Neurologic exam: Cranial nerves two through 12 are intact. Motor and sensation are intact and symmetrical throughout. Medical Decision & Procedures ER Provider Diagnostic Interpretation: Radiology results as stated below per my review and radiologist interpretation: HEAD CT NONCONTRAST Findings: Mild mucosal thickening within the left sphenoid sinus. No fluid levels within the paranasal sinuses. The mastoid air cells are clear. The calvarium and skull base are intact. There is no mass, hematoma, midline shift, acute infarct. White matter hypodensity is nonspecific but suggestive of microvascular ischemic change. The ventricles and sulci demonstrate mild age-related involutional changes. Impression: No acute intracranial abnormality. Atrophy and microvascular ischemic changes. Electronically signed by: Antony Falcon M.D. 08/03/2017 1:47 PM CHEST ONE VIEW PORTABLE FINDINGS: Atherosclerosis of the aortic arch. Cardiac silhouette normal in size. Pulmonary vascular prominence unchanged. Vague bibasilar opacities greater on the left unchanged. No large pleural effusion or pneumothorax. Intramedullary nail and interlocking screw fixation of the left humerus. Suggestion of radiolucency at the level of the humeral head/neck and proximal screw. Upper abdomen normal. IMPRESSION: 1. No acute cardiopulmonary disease. 2. Stable basilar scarring and/or atelectasis. 3. Suggestion of increased radiolucency at the left humeral head/neck associated with the proximal interlocking screw and intramedullary nail fixation. This could suggest loosening or infection. Electronically signed by: Mckinley Kelly M.D. 08/03/2017 1:28 PM Laboratory Results 08/03/17 13:10 Red Blood Count 2.77, Mean Corpuscular Volume 85.9, Mean Corpuscular Hemoglobin 28.2, Mean Corpuscular Hemoglobin Concent 32.8, Mean Platelet Volume 10.2, Neutrophils (%) (Auto) 69.1, Lymphocytes (%) (Auto) 19.4, Monocytes (%) (Auto) 3.1, Eosinophils (%) (Auto) 7.2, Basophils (%) (Auto) 0.6, Neutrophils # (Auto) 2.20, Lymphocytes # (Auto) 0.62, Monocytes # (Auto) 0.10, Eosinophils # (Auto) 0.23, Basophils # (Auto) 0.02 08/03/17 13:10 Test 08/03/17 13:10 08/03/17 13:25 White Blood Count 3.19 K/uL (4.8-10.8) Red Blood Count 2.77 M/uL (4.2-5.4) Hemoglobin 7.8 g/dL (12.0-16.0) Hematocrit 23.8 % (37-47) Mean Corpuscular Volume 85.9 fL (80-100) Mean Corpuscular Hemoglobin 28.2 pg (25-34) Mean Corpuscular Hemoglobin Concent 32.8 g/dl (32-36) Platelet Count 379 K/uL (130-400) Mean Platelet Volume 10.2 fL (7.4-10.4) Neutrophils (%) (Auto) 69.1 % Lymphocytes (%) (Auto) 19.4 % Monocytes (%) (Auto) 3.1 % Eosinophils (%) (Auto) 7.2 % Basophils (%) (Auto) 0.6 % Neutrophils # (Auto) 2.20 K/uL (1.4-6.5) Lymphocytes # (Auto) 0.62 K/uL (1.2-3.4) Monocytes # (Auto) 0.10 K/uL (0.11-0.59) Eosinophils # (Auto) 0.23 K/uL (0-0.5) Basophils # (Auto) 0.02 K/uL (0-0.2) RDW Standard Deviation 72.1 fL (36.4-46.3) RDW Coefficient of Variation 23.4 % (11.5-14.5) Immature Granulocyte % (Auto) 0.6 % Immature Granulocyte # (Auto) 0.02 K/uL (0.00-0.02) Prothrombin Time 11.4 SECONDS (9.0-12.0) Prothromb Time International Ratio 1.1 (0.9-1.1) Activated Partial Thromboplast Time 23.3 SECONDS (21.0-31.0) Partial Thromboplastin Ratio 0.9 Anion Gap 7.0 mmol/L (3-11) Est Creatinine Clear Calc Drug Dose 28.2 ml/min Estimated GFR () 51.7 Estimated GFR (Non- 44.6 BUN/Creatinine Ratio 12.9 (10-20) Calcium Level 9.0 mg/dl (8.5-10.1) Total Bilirubin 0.6 mg/dl (0.2-1) Direct Bilirubin 0.2 mg/dl (0-0.2) Aspartate Amino Transf (AST/SGOT) 16 U/L (15-37) Alanine Aminotransferase (ALT/SGPT) 14 U/L (12-78) Alkaline Phosphatase 70 U/L (45-117) Total Protein 6.9 gm/dl (6.4-8.2) Albumin 2.6 gm/dl (3.4-5.0) Lipase 77 U/L (73-393) Bedside Troponin I < 0.030 ng/ml (0-0.045) Laboratory studies as stated above per my review. ECG Indication: nausea Rate (beats per minute): 58 Rhythm: sinus bradycardia Findings: no acute ischemic change, no ectopy Comparison ECG Date: May 19, 2017 Change: no significant change ED Course 1250: Past medical records reviewed. The patient was evaluated in room B12B, and a complete history and physical examination were performed. 1350: I conducted a rectal exam on the patient. Exam was performed in the presence of a female nurse silk screen processor. 1412: Upon reevaluation, the patient is resting comfortably. I discussed the results and treatment plan with the patient. She verbalized agreement of the treatment plan. The patient will be evaluated for further management. Medical Decision Differentials include, but are not limited to; anemia, GI bleed, sepsis, subdural hematoma, infection, and cardiac disease. This patient comes in as described above. She was sent in by her doctor after having a low hemoglobin and blood work yesterday. It was 7.9. She's been tired lately and was diagnosed with UTI yesterday. I did look at [facility]'s records and her urine culture from yesterday is pending. She is asymptomatic at present. She's not noted any blood or black colored stool. She's had no NSAID or aspirin use. Her abdomen is benign on exam. Her rectal exam, she had only had scant stool but it was negative. It is possible that she has a small slow GI leak. She's been type and screened as she will likely need a transfusion. Chest x-ray is unremarkable. I also did a CAT scan as the family says that she's been a little bit off since she fell in May and this shows no acute findings. She's had no electrolyte or metabolic abnormalities. She was found to be anemic. I do think she needs to be admitted . her hemoglobin was in the 10 range prior. I have consulted the [facility] to see her in the ER. Medication Reconcilliation Current Medication List: was personally reviewed by me Blood Pressure Screening Patient's blood pressure: Normal blood pressure Blood pressure disposition: Did not require urgent referral Consults Time Called: 1407 Consulting Physician: Dr. Doll - [facility] Returned Call: [phone] Discussed the patient's case. The patient will be evaluated for further management. Impression Primary Impression: Anemia Additional Impression: Weakness Scribe Attestation The scribe's documentation has been prepared under my direction and personally reviewed by me in its entirety. I confirm that the note above accurately reflects all work, treatment, procedures, and medical decision making performed by me. Departure Information Dispostion Being Evaluated By Hospitalist Referrals Maritza Osuna D.O. (PCP) Patient Instructions My [facility] Problem Qualifiers
[2017-08-03] MEDS ORDERED: POTASSIUM CHLORIDE 10 MEQ TABCR PO STA (15:19)
[2017-08-03] MEDS ORDERED: PANTOprazole SOD 40 MG TAB PO STA (15:25)
[2017-08-03] MEDS ORDERED: ONDANSETRON INJ 2 MG/ML 2 ML VIAL IV PRN (15:30)
[2017-08-03] MEDS ORDERED: TRAMADOL HCL 50 MG TAB PO PRN (15:30)
[2017-08-03] MEDS ORDERED: IV FLUIDS COMPLETED PRN (16:15)
--- NOTE | 2017-08-03 19:28 | History and Physical ---
History & Physical Date & Time of Service: Aug 03, 2017 at 19:09 Chief Complaint: Anemia, Weakness Primary Care Physician: Maritza Osuna D.O. History of Present Illness Source: patient, family, clinic records, hospital records This is an 87 year old female with a PMH of dementia, restless leg syndrome, HTN , previous history of provoked DVT, no longer on anticoagulation; a fall in May 2017 with fractured ribs and pneumothorax - presents with low hemoglobin. Was sent by primary care physician - was checked for urinary tract infection and labwork on 08/02 and was found to have Hgb of 7.8. As per patient' s son, who the patient lives with - patient has been feeling weak and more altered than usual. He was given Bactrim for a UTI yesterday (08/02) and cultures pending. During my exam, no acute distress noted. 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 (5) Diverticulitis Status: Resolved (6) Dyslipidemia Status: Chronic (7) Hip fracture Status: Resolved (8) History of cervical cancer Status: Chronic (9) History of Clostridium difficile infection Status: Chronic (10) History of DVT (deep vein thrombosis) Permanent Comment: 1999 associated with ankle fracture Status: Resolved (11) Hypertension Status: Chronic (12) Migraine Status: Chronic Surgical Problems: (1) S/P knee replacement Status: Chronic (2) Status post appendectomy Status: Chronic (3) Status post cardiac catheterization Permanent Comment: [facility] 2009 minimal nonocclusive disease Status: Chronic (4) Status post hysterectomy Permanent Comment: cervical Ca Status: Chronic Family History Hypertension MOTHER Lung cancer BROTHER Social History Smoking Status: Never Smoker Drug Use: none Occupational Status: unemployed Immunizations History of Influenza Vaccine: Yes History of Tetanus Vaccine?: Unknown History of Pneumococcal: Yes Pneumococcal Date: Apr 23, 2012 History of Hepatitis B Vaccine: No Allergies Coded Allergies: No Known Allergies (Unverified , 08/03/17) Home Medications Scheduled Calcium Carbonate-Vitamin D (Calcium 600 + D), 1 TAB PO DAILY Cholecalciferol (Vitamin D3 400), 400 UNITS PO DAILY Hydrochlorothiazide (Hctz), 25 MG PO DAILY Multiple Vitamin (Multivitamin), 1 TAB PO DAILY Pramipexole Dihydrochloride (Pramipexole Dihydrochlori), 0.5 MG PO HS Propranolol Hcl (Propranolol Hcl Er), 120 MG PO DAILY Sulfa/Trimethoprim (Bactrim Ds 800MG/160MG), 1 TAB PO BID Scheduled PRN Tramadol (Ultram), 100 MG PO BID PRN for Pain Review of Systems Complete ROS not completed due to dementia Constitutional: + weakness, + fatigue Respiratory: No cough, No sputum, No wheezing, No shortness of breath, No dyspnea on exertion, No dyspnea at rest, No hemoptysis Cardiovascular: No chest pain, No palpitations Abdomen: No nausea, No vomiting, No diarrhea, No GI bleeding Genitourinary - Female: No dysuria, No urinary frequency, No urinary urgency, No hematuria Physical Exam Vital Signs Date Time Temp Pulse Resp B/P (MAP) Pulse Ox O2 Delivery O2 Flow Rate FiO2 08/03/17 18:50 36.8 67 22 128/57 96 Nasal Cannula 4.0 08/03/17 18:45 36.8 67 22 128/57 96 4.0 08/03/17 18:11 58 16 104/50 98 Nasal Cannula 4.0 08/03/17 18:10 36.6 56 18 104/50 100 4.0 08/03/17 17:45 36.9 56 21 92/46 97 4.0 08/03/17 17:28 36.8 56 22 98/54 97 Nasal Cannula 4.0 08/03/17 17:26 36.8 56 17 98/54 96 4.0 08/03/17 17:16 103/50 08/03/17 17:15 57 20 96 08/03/17 17:11 103/51 08/03/17 17:10 37.1 57 18 103/51 96 4.0 08/03/17 17:04 37.0 57 20 87/42 98 08/03/17 17:01 87/42 08/03/17 17:00 55 21 97 08/03/17 16:45 55 21 98 08/03/17 16:44 56 08/03/17 16:30 57 20 100/59 97 08/03/17 16:15 56 22 98 08/03/17 16:01 104/54 08/03/17 16:00 55 23 98 08/03/17 16:00 61 104/54 98 Room Air 08/03/17 15:45 56 110/53 97 Nasal Cannula 4.0 08/03/17 15:00 55 99/50 97 Nasal Cannula 4.0 08/03/17 13:50 59 16 104/54 97 Nasal Cannula 3.0 08/03/17 12:47 96 Nasal Cannula 4.0 08/03/17 12:47 60 08/03/17 12:47 96 Nasal Cannula 4.0 08/03/17 12:43 37.2 58 16 108/73 89 Room Air General Appearance: no apparent distress Head: normocephalic, atraumatic Eyes: normal inspection Respiratory/Chest: lungs clear, normal breath sounds, no respiratory distress, no accessory muscle use Cardiovascular: regular rate, rhythm, no edema, no murmur Abdomen/GI: normal bowel sounds, non tender, soft Extremities/Musculoskelatal: normal inspection, no calf tenderness, normal capillary refill, no pedal edema, normal range of motion Neurologic/Psych: no motor/sensory deficits, alert, + pertinent finding ( underlying dementia) Skin: normal color Lymphatic: no adenopathy Diagnostics Laboratory Results Results Past 24 Hours Test 08/03/17 13:10 08/03/17 13:25 Range/Units White Blood Count 3.19 4.8-10.8 K/uL Red Blood Count 2.77 4.2-5.4 M/uL Hemoglobin 7.8 12.0-16.0 g/dL Hematocrit 23.8 37-47 % Mean Corpuscular Volume 85.9 80-100 fL Mean Corpuscular Hemoglobin 28.2 25-34 pg Mean Corpuscular Hemoglobin Concent 32.8 32-36 g/dl Platelet Count 379 130-400 K/uL Mean Platelet Volume 10.2 7.4-10.4 fL Neutrophils (%) (Auto) 69.1 % Lymphocytes (%) (Auto) 19.4 % Monocytes (%) (Auto) 3.1 % Eosinophils (%) (Auto) 7.2 % Basophils (%) (Auto) 0.6 % Neutrophils # (Auto) 2.20 1.4-6.5 K/uL Lymphocytes # (Auto) 0.62 1.2-3.4 K/uL Monocytes # (Auto) 0.10 0.11-0.59 K/uL Eosinophils # (Auto) 0.23 0-0.5 K/uL Basophils # (Auto) 0.02 0-0.2 K/uL RDW Standard Deviation 72.1 36.4-46.3 fL RDW Coefficient of Variation 23.4 11.5-14.5 % Immature Granulocyte % (Auto) 0.6 % Immature Granulocyte # (Auto) 0.02 0.00-0.02 K/uL Prothrombin Time 11.4 9.0-12.0 SECONDS Prothromb Time International Ratio 1.1 0.9-1.1 Activated Partial Thromboplast Time 23.3 21.0-31.0 SECONDS Partial Thromboplastin Ratio 0.9 Sodium Level 129 136-145 mmol/L Potassium Level 3.1 3.5-5.1 mmol/L Chloride Level 92 98-107 mmol/L Carbon Dioxide Level 30 21-32 mmol/L Anion Gap 7.0 3-11 mmol/L Blood Urea Nitrogen 14 7-18 mg/dl Creatinine 1.11 0.60-1.20 mg/dl Est Creatinine Clear Calc Drug Dose 28.2 ml/min Estimated GFR () 51.7 Estimated GFR (Non- 44.6 BUN/Creatinine Ratio 12.9 10-20 Random Glucose 97 70-99 mg/dl Calcium Level 9.0 8.5-10.1 mg/dl Total Bilirubin 0.6 0.2-1 mg/dl Direct Bilirubin 0.2 0-0.2 mg/dl Aspartate Amino Transf (AST/SGOT) 16 15-37 U/L Alanine Aminotransferase (ALT/SGPT) 14 12-78 U/L Alkaline Phosphatase 70 45-117 U/L Total Protein 6.9 6.4-8.2 gm/dl Albumin 2.6 3.4-5.0 gm/dl Lipase 77 73-393 U/L Bedside Troponin I < 0.030 0-0.045 ng/ml Diagnostic Radiology HEAD CT NONCONTRAST CT DOSE: 638.56 mGycm HISTORY: weakness TECHNIQUE: Multiaxial CT images of the head were performed without the use of intravenous contrast. Automated exposure control was utilized for this study. A dose lowering technique was utilized adhering to the principles of ALARA. Comparison: Head CT 05/19/2017. Findings: Mild mucosal thickening within the left sphenoid sinus. No fluid levels within the paranasal sinuses. The mastoid air cells are clear. The calvarium and skull base are intact. There is no mass, hematoma, midline shift, acute infarct. White matter hypodensity is nonspecific but suggestive of microvascular ischemic change. The ventricles and sulci demonstrate mild age-related involutional changes. Impression: No acute intracranial abnormality. Atrophy and microvascular ischemic changes. CHEST ONE VIEW PORTABLE CLINICAL HISTORY: 87 years-old Female presenting with CHEST PAIN. TECHNIQUE: Portable upright AP view of the chest was obtained. COMPARISON: 05/19/2017. FINDINGS: Atherosclerosis of the aortic arch. Cardiac silhouette normal in size. Pulmonary vascular prominence unchanged. Vague bibasilar opacities greater on the left unchanged. No large pleural effusion or pneumothorax. Intramedullary nail and interlocking screw fixation of the left humerus. Suggestion of radiolucency at the level of the humeral head/neck and proximal screw. Upper abdomen normal. IMPRESSION: 1. No acute cardiopulmonary disease. 2. Stable basilar scarring and/or atelectasis. 3. Suggestion of increased radiolucency at the left humeral head/neck associated with the proximal interlocking screw and intramedullary nail fixation. This could suggest loosening or infection. EKG Sinus bradycardia Otherwise normal ECG Impression Assessment and Plan This is an 87 year old female with a PMH of dementia, restless leg syndrome, HTN , previous history of provoked DVT, no longer on anticoagulation; a fall in May 2017 with fractured ribs and pneumothorax - presents with low hemoglobin Anemia brown stool, but + FOBT as per ER doctor; hx. of diverticulosis Hgb down from baseline of 10 to 7.8 will transfuse one unit pRBC added Protonix will check iron studies, b12, folate GI consulted for further input UTI started on Bactrim as outpatient on 08/02, which we will continue awaiting urine culture as outpatient HTN BP on the lower side will hold HCTZ and Propranolol Restless Leg Syndrome continue Mirapex DVT ppx SCDs DNR Advanced Directives Existing Living Will: No Existing Power of Tube Handler: Yes VTE Prophylaxis VTE Risk Assessment Done? Y/N: Yes Risk Level: Moderate
[2017-08-03] MEDS: SULFAMETHOXAZOLE/TRIMETHOPRIM DS 800/160MG TAB PO SCH (19:50)
[2017-08-03] MEDS: PRAMIPEXOLE DIHYDROCHLORIDE 0.5 MG TAB PO SCH (19:50)
[2017-08-03 19:51] LABS: HEMATOCRIT 27.9 % (37-47); HEMOGLOBIN 9.2 g/dL (12.0-16.0)
[2017-08-03] MEDS ORDERED: PNEUMOCOCCAL ADMINISTRATION CHARGE ONE (23:45)
[2017-08-03] MEDS ORDERED: PNEUMOCOCCAL POLYSACCHARIDES 25 MCG/0.5 ML VIAL/SYR IM. ONE (23:45)
[2017-08-04 05:56] LABS: HEMATOCRIT 28.5 % (37-47); HEMOGLOBIN 9.4 g/dL (12.0-16.0); MEAN CELL VOLUME 86.4 fL (80-100); MEAN CORPUSCULAR HEMOGLOBIN 28.5 pg (25-34); MEAN PLATELET VOLUME 9.7 fL (7.4-10.4); PLATELET COUNT 403 K/uL (130-400); RED CELL DISTRIBUTION WIDTH CV 21.6 % (11.5-14.5); RED CELL DISTRIBUTION WIDTH SD 68.1 fL (36.4-46.3)
[2017-08-04] MEDS ORDERED: PNEUMOCOCCAL ADMINISTRATION CHARGE ONE (06:15)
[2017-08-04] MEDS ORDERED: PNEUMOCOCCAL POLYSACCHARIDES 25 MCG/0.5 ML VIAL/SYR IM. ONE (06:15)
[2017-08-04 06:44] LABS: CALCIUM 9.3 mg/dl (8.5-10.1); CREATININE 0.98 mg/dl (0.60-1.20); POTASSIUM 3.9 mmol/L (3.5-5.1)
[2017-08-04 07:18] VITALS: BP 112/67; PULSE 61; TEMP 36.6; O2SAT 90
[2017-08-04 08:00] VITALS: O2SAT 90
[2017-08-04] MEDS: SULFAMETHOXAZOLE/TRIMETHOPRIM DS 800/160MG TAB PO SCH ×2 (08:02→20:55)
[2017-08-04] MEDS: CALCIUM 600MG + VIT D 400 IU TAB PO SCH (08:03)
[2017-08-04] MEDS: MULTIVITAMIN TAB PO SCH (08:03)
[2017-08-04] MEDS: PANTOprazole SOD 40 MG TAB PO SCH (08:03)
--- NOTE | 2017-08-04 09:46 | Clinical Documentation Query ---
CLINICAL DOCUMENTATION QUERY 87 year old female who presents to the Emergency Room for evaluation of low hemoglobin. Query #1/2 In your clinical opinion is this patient being managed for: ( X ) Possible GI bleed - as documented ( ) Not Agree ( ) Other explanation of clinical findings (Please Explain) ( ) Unable to determine (Please Define) ( ) Need to Discuss The medical record reflects the following clinical findings, treatment, and risk factors. Clinical Indicators: +FOCB and anemia (Hgb 7.8, Hct 23.8) Treatment: 1 unit PRBC's, GI consult, Risk Factors: Age, Query #2/2 In your clinical opinion is this patient being managed for: ( X ) Acute blood loss anemia ( ) Not Agree ( ) Other explanation of clinical findings (Please Explain) ( ) Unable to determine (Please Define) ( ) Need to Discuss The medical record reflects the following clinical findings, treatment, and risk factors. Clinical Indicators: +FOCB, Hgb 7.8, Hct 23.8 Treatment: 1 unit PRBC's Risk Factors: Age, ?GI bleed Please clarify and document your clinical opinion in the progress notes and discharge summary. Terms such as "probable", "suspected", "likely", "questionable", "possible", or "still to be ruled out" are acceptable. IF IN AGREEMENT, YOU MUST DOCUMENT ABOVE DIAGNOSTIC STATEMENT IN DAILY PROGRESS NOTES AND DISCHARGE SUMMARY. This document is not part of the patient's record. Thank You, Scotty Guerrero, RN [phone]
--- NOTE | 2017-08-04 11:48 | Gastrointestinal Consultation ---
Gastrointestinal Consultation Date of Consultation: Aug 04, 2017 Attending Physician: Yelena Pineda Consulting Physician: Suha Tomlinson Reason for Consultation: Anemia, hx of diverticulosis History of Present Illness Patient is a 87 year old female w PMHx of dementia, RLS, HTN, DVT, fall in May resulting in rib fracture, pneumothorax, who was referred to ED by PCP for worsening anemia. Had outpt labs w Hgb of 7.8 on 08/02/17. She was also recently started on Bactrim for UTI. Pt's son who lives w her said pt had been weaker and more confused lately. She denies any light headedness, dizziness, CP , SOB, abd pain, n/v. Bowels move daily, sometimes dark stool but never seen any blood or had any black tarry stools. Noted on outpt chart she had about 30 lbs weight loss since 05/2017. Per son, she's had colonoscopies at [facility] in the past, unsure last scope but w hx of diverticulosis. Past Medical/Surgical History Medical Problems: (1) Anemia Status: Acute (2) Knee effusion Status: Acute (3) Weakness Status: Acute Past Medical History: 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 (5) Diverticulitis Status: Resolved (6) Dyslipidemia Status: Chronic (7) Hip fracture Status: Resolved (8) History of cervical cancer Status: Chronic (9) History of Clostridium difficile infection Status: Chronic (10) History of DVT (deep vein thrombosis) Permanent Comment: 1998 associated with ankle fracture Status: Resolved (11) Hypertension Status: Chronic (12) Migraine Status: Chronic Surgical Problems: (1) S/P knee replacement Status: Chronic (2) Status post appendectomy Status: Chronic (3) Status post cardiac catheterization Permanent Comment: [facility] 2008 minimal nonocclusive disease Status: Chronic (4) Status post hysterectomy Permanent Comment: cervical Ca Status: Chronic Family History Hypertension MOTHER Lung cancer BROTHER Social History Smoking Status: Never Smoker Drug Use: none Housing Status: lives alone Occupation Status: unemployed Allergies Coded Allergies: No Known Allergies (Unverified , 08/03/17) Current Medications Home Meds and Scripts Medications Dose Route/Sig Max Daily Dose Days Date Category Bactrim Ds 800MG/160MG (Trimethoprim/Sulfamethoxazole) Tab 1 Tab PO BID 08/03/17 Reported Pramipexole Dihydrochlori (Pramipexole Dihydrochloride) 0.5 Mg Tab 0.5 Mg PO HS 08/03/17 Reported Calcium 600 + D (Calcium Carbonate-Vitamin D) 1 Tab Tab 1 Tab PO DAILY 03/01/16 Reported Ultram (Tramadol HCl) 50 Mg Tab 100 Mg PO BID PRN 08/27/13 Reported Vitamin D3 400 (Cholecalciferol) 400 Unit Cap 400 Units PO DAILY 08/27/13 Reported Propranolol Hcl Er (Propranolol Hcl) 120 Mg Cap 120 Mg PO DAILY 08/27/13 Reported Hctz (Hydrochlorothiazide) 25 Mg Tab 25 Mg PO DAILY 03/29/12 Reported Multivitamin (Multiple Vitamin) 1 Tab Tab 1 Tab PO DAILY 03/29/12 Reported Review of Systems Constitutional: + weakness, No fever, No chills Respiratory: No cough, No shortness of breath Abdomen: + pain, + nausea, + vomiting, No GI bleeding Skin: No rash, No itch Physical Exam Date Time Temp Pulse Resp B/P (MAP) Pulse Ox O2 Delivery O2 Flow Rate FiO2 08/04/17 08:00 90 Room Air 08/04/17 07:18 36.6 61 20 112/67 (82) 90 Room Air 08/03/17 23:30 Room Air 08/03/17 23:16 37.0 60 16 107/57 (74) 91 08/03/17 19:26 36.8 55 18 132/73 100 4.0 08/03/17 18:50 36.8 67 22 128/57 96 Nasal Cannula 4.0 08/03/17 18:45 36.8 67 22 128/57 96 4.0 08/03/17 18:11 58 16 104/50 98 Nasal Cannula 4.0 08/03/17 18:10 36.6 56 18 104/50 100 4.0 08/03/17 17:45 36.9 56 21 92/46 97 4.0 08/03/17 17:28 36.8 56 22 98/54 97 Nasal Cannula 4.0 08/03/17 17:26 36.8 56 17 98/54 96 4.0 08/03/17 17:16 103/50 08/03/17 17:15 57 20 96 08/03/17 17:11 103/51 08/03/17 17:10 37.1 57 18 103/51 96 4.0 08/03/17 17:04 37.0 57 20 87/42 98 08/03/17 17:01 87/42 08/03/17 17:00 55 21 97 08/03/17 16:45 55 21 98 08/03/17 16:44 56 08/03/17 16:30 57 20 100/59 97 08/03/17 16:15 56 22 98 08/03/17 16:01 104/54 08/03/17 16:00 55 23 98 08/03/17 16:00 61 104/54 98 Room Air 08/03/17 15:45 56 110/53 97 Nasal Cannula 4.0 08/03/17 15:00 55 99/50 97 Nasal Cannula 4.0 08/03/17 13:50 59 16 104/54 97 Nasal Cannula 3.0 08/03/17 12:47 96 Nasal Cannula 4.0 08/03/17 12:47 60 08/03/17 12:47 96 Nasal Cannula 4.0 08/03/17 12:43 37.2 58 16 108/73 89 Room Air General Appearance: WD/WN, no apparent distress Eyes: normal inspection, PERRL, EOMI Neck: supple, no JVD, trachea midline Respiratory/Chest: normal breath sounds, no respiratory distress, no accessory muscle use Cardiovascular: regular rate, rhythm, no gallop, no murmur Abdomen: normal bowel sounds, non tender, soft Extremities: normal inspection, no pedal edema, no calf tenderness Neurologic/Psych: alert, normal mood/affect, oriented x 3 Skin: normal color, no jaundice, no rash Laboratory Results Last 24 Hours Test 08/03/17 13:10 08/03/17 13:25 08/03/17 19:44 08/04/17 05:39 White Blood Count 3.19 K/uL 4.30 K/uL Red Blood Count 2.77 M/uL 3.30 M/uL Hemoglobin 7.8 g/dL 9.2 g/dL 9.4 g/dL Hematocrit 23.8 % 27.9 % 28.5 % Mean Corpuscular Volume 85.9 fL 86.4 fL Mean Corpuscular Hemoglobin 28.2 pg 28.5 pg Mean Corpuscular Hemoglobin Concent 32.8 g/dl 33.0 g/dl Platelet Count 379 K/uL 403 K/uL Mean Platelet Volume 10.2 fL 9.7 fL Neutrophils (%) (Auto) 69.1 % Lymphocytes (%) (Auto) 19.4 % Monocytes (%) (Auto) 3.1 % Eosinophils (%) (Auto) 7.2 % Basophils (%) (Auto) 0.6 % Neutrophils # (Auto) 2.20 K/uL Lymphocytes # (Auto) 0.62 K/uL Monocytes # (Auto) 0.10 K/uL Eosinophils # (Auto) 0.23 K/uL Basophils # (Auto) 0.02 K/uL RDW Standard Deviation 72.1 fL 68.1 fL RDW Coefficient of Variation 23.4 % 21.6 % Immature Granulocyte % (Auto) 0.6 % Immature Granulocyte # (Auto) 0.02 K/uL Prothrombin Time 11.4 SECONDS Prothromb Time International Ratio 1.1 Activated Partial Thromboplast Time 23.3 SECONDS Partial Thromboplastin Ratio 0.9 Sodium Level 129 mmol/L 130 mmol/L Potassium Level 3.1 mmol/L 3.9 mmol/L Chloride Level 92 mmol/L 97 mmol/L Carbon Dioxide Level 30 mmol/L 28 mmol/L Anion Gap 7.0 mmol/L 5.0 mmol/L Blood Urea Nitrogen 14 mg/dl 15 mg/dl Creatinine 1.11 mg/dl 0.98 mg/dl Est Creatinine Clear Calc Drug Dose 28.2 ml/min 32.0 ml/min Estimated GFR () 51.7 60.1 Estimated GFR (Non- 44.6 51.9 BUN/Creatinine Ratio 12.9 15.2 Random Glucose 97 mg/dl 83 mg/dl Calcium Level 9.0 mg/dl 9.3 mg/dl Total Bilirubin 0.6 mg/dl Direct Bilirubin 0.2 mg/dl Aspartate Amino Transf (AST/SGOT) 16 U/L Alanine Aminotransferase (ALT/SGPT) 14 U/L Alkaline Phosphatase 70 U/L Total Protein 6.9 gm/dl Albumin 2.6 gm/dl Lipase 77 U/L Bedside Troponin I < 0.030 ng/ml Magnesium Level 2.2 mg/dl Iron Level 156 mcg/dl Total Iron Binding Capacity 228 mcg/dl Transferrin 175 mg/dl Transferrin % Saturation 64 % Ferritin 348.5 ng/ml Vitamin B12 Level 427 pg/mL Folate 12.04 ng/mL Impression Patient is a 87 year old female w worsening anemia, weight loss (30 lbs since May). Hgb improved from 7.8 to 9.4 after 1U PRBC transfusion. No jerod s/s of GI bleeding. Hx of diverticulosis, previous colonoscopies in [place] which son reports had findings of diverticulosis. Plan - Discussed with pt about EGD/Colonoscopy evaluations, she's not interested in any of these. I did speak w pt's son about these also and he said he'll try to discuss with pt again. - Monitor H/H and transfuse prn - F/U iron studies. -
[2017-08-04 14:42] VITALS: BP 106/62; PULSE 60; TEMP 36.9; O2SAT 94
--- NOTE | 2017-08-04 15:23 | Progress Note ---
Medicine Progress Note Date & Time of Visit: Aug 04, 2017 at 14:18. Subjective Pt was seen and examined Very pleasant, lying in bed with no distress Pt said that she feels fine Denies any chest chest pain, palpitation, dizziness and SOB Objective Last 8 Hrs Date Time Temp Pulse Resp B/P (MAP) Pulse Ox O2 Delivery O2 Flow Rate FiO2 08/04/17 08:00 90 Room Air 08/04/17 07:18 36.6 61 20 112/67 (82) 90 Room Air Physical Exam: General- No acute distress Head- atraumatic Eyes- PERRL, EOMI ENT- oropharynx clear Neck- supple, no JVD Lungs- No acute distress Heart- regular rhythm Abdomen- normal bowel sounds Extremities- no pretibial edema Neuro- alert, oriented x 3; PERRL, EOMI Skin- warm & dry Laboratory Results: Last 24 Hours Test 08/03/17 19:44 08/04/17 05:39 Hemoglobin 9.2 g/dL 9.4 g/dL Hematocrit 27.9 % 28.5 % White Blood Count 4.30 K/uL Red Blood Count 3.30 M/uL Mean Corpuscular Volume 86.4 fL Mean Corpuscular Hemoglobin 28.5 pg Mean Corpuscular Hemoglobin Concent 33.0 g/dl RDW Standard Deviation 68.1 fL RDW Coefficient of Variation 21.6 % Platelet Count 403 K/uL Mean Platelet Volume 9.7 fL Sodium Level 130 mmol/L Potassium Level 3.9 mmol/L Chloride Level 97 mmol/L Carbon Dioxide Level 28 mmol/L Anion Gap 5.0 mmol/L Blood Urea Nitrogen 15 mg/dl Creatinine 0.98 mg/dl Est Creatinine Clear Calc Drug Dose 32.0 ml/min Estimated GFR () 60.1 Estimated GFR (Non- 51.9 BUN/Creatinine Ratio 15.2 Random Glucose 83 mg/dl Calcium Level 9.3 mg/dl Magnesium Level 2.2 mg/dl Iron Level 156 mcg/dl Total Iron Binding Capacity 228 mcg/dl Transferrin 175 mg/dl Transferrin % Saturation 64 % Ferritin 348.5 ng/ml Vitamin B12 Level 427 pg/mL Folate 12.04 ng/mL Assessment & Plan Anemia Hbg on admission 7.8 Positive FOBT as per ER physician Hgb baseline of 10 Transfused 1 units PRBC yesterday Hgg 9.4 today GI on board, recommended EGD but pt refused Continue protonix Will monitor h/h UTI Continue Bactrim that was started outpatient on 08/02 Asymptomatic HTN BP stable HCTZ and Propranolol has been on hold Restless Leg Syndrome continue Mirapex DVT ppx SCDs CODE STATUS DNR Consultants: Gastro Current Inpatient Medications: Current Inpatient Medications Medications (Trade) Dose Ordered Sig/Gin Route Start Time Stop Time Status Last Admin Dose Admin Multivitamins (Multivitamin Tab) 1 tab DAILY PO 08/04/17 09:00 09/03/17 08:59 08/04/17 08:03 1 TAB Pramipexole Dihydrochloride (miraPEX TAB) 0.5 mg HS PO 08/03/17 21:00 09/02/17 20:59 08/03/17 19:50 0.5 MG Trimethoprim/ Sulfamethoxazole (Septra Ds 800/ 160MG Tab) 1 tab BID PO 08/03/17 21:00 08/08/17 20:59 08/04/17 08:02 1 TAB Tramadol HCl (Ultram Tab) 100 mg BID PRN PO 08/03/17 15:30 09/02/17 15:29 Calcium/Vitamin D (Caltrate Plus Tab) 1 tab DAILY PO 08/04/17 09:00 09/03/17 08:59 08/04/17 08:03 1 TAB Ondansetron HCl (Zofran Inj) 4 mg Q6H PRN IV 08/03/17 15:30 09/02/17 15:29 Pantoprazole Sodium (Protonix Tab) 40 mg QAM PO 08/04/17 09:00 09/03/17 08:59 08/04/17 08:03 40 MG Miscellaneous (Iv Fluids Completed) 1 ea PRN PRN N/A 08/03/17 16:15 08/03/18 16:14
[2017-08-04] MEDS: PRAMIPEXOLE DIHYDROCHLORIDE 0.5 MG TAB PO SCH (20:55)
[2017-08-04] MEDS ORDERED: BISACODYL 5 MG TABEC PO ONE (21:20)
[2017-08-04 23:40] VITALS: BP 123/74; PULSE 62; TEMP 37.1; O2SAT 91
--- NOTE | 2017-08-05 05:20 | Clinical Documentation Query ---
CLINICAL DOCUMENTATION QUERY 87 year old female who presents to the Emergency Room for evaluation of low hemoglobin. Query #1/2 In your clinical opinion is this patient being managed for: ( ) Possible GI bleed - as documented ( ) Not Agree ( ) Other explanation of clinical findings (Please Explain) ( ) Unable to determine (Please Define) ( ) Need to Discuss The medical record reflects the following clinical findings, treatment, and risk factors. Clinical Indicators: +FOCB and anemia (Hgb 7.8, Hct 23.8) Treatment: 1 unit PRBC's, GI consult, Risk Factors: Age, Query #2/2 In your clinical opinion is this patient being managed for: ( ) Acute blood loss anemia ( ) Not Agree ( ) Other explanation of clinical findings (Please Explain) ( ) Unable to determine (Please Define) ( ) Need to Discuss The medical record reflects the following clinical findings, treatment, and risk factors. Clinical Indicators: +FOCB, Hgb 7.8, Hct 23.8 Treatment: 1 unit PRBC's Risk Factors: Age, ?GI bleed Please clarify and document your clinical opinion in the progress notes and discharge summary. Terms such as "probable", "suspected", "likely", "questionable", "possible", or "still to be ruled out" are acceptable. IF IN AGREEMENT, YOU MUST DOCUMENT ABOVE DIAGNOSTIC STATEMENT IN DAILY PROGRESS NOTES AND DISCHARGE SUMMARY. This document is not part of the patient's record. Thank You, Scotty Guerrero, RN [phone]
[2017-08-05 07:17] VITALS: BP 119/75; PULSE 55; TEMP 37; O2SAT 92
[2017-08-05] MEDS: MULTIVITAMIN TAB PO SCH (08:01)
[2017-08-05] MEDS: CALCIUM 600MG + VIT D 400 IU TAB PO SCH (08:01)
[2017-08-05] MEDS: SULFAMETHOXAZOLE/TRIMETHOPRIM DS 800/160MG TAB PO SCH ×2 (08:01→20:31)
[2017-08-05] MEDS: PANTOprazole SOD 40 MG TAB PO SCH (08:02)
[2017-08-05] MEDS: BISACODYL 5 MG TABEC PO SCH (08:04)
[2017-08-05 08:56] LABS: HEMATOCRIT 29.3 % (37-47); HEMOGLOBIN 9.7 g/dL (12.0-16.0); MEAN CELL VOLUME 86.2 fL (80-100); MEAN CORPUSCULAR HEMOGLOBIN 28.5 pg (25-34); MEAN CORPUSCULAR HGB CONC 33.1 g/dl (32-36); MEAN PLATELET VOLUME 9.9 fL (7.4-10.4); PLATELET COUNT 392 K/uL (130-400); RED CELL DISTRIBUTION WIDTH CV 21.3 % (11.5-14.5); RED CELL DISTRIBUTION WIDTH SD 66.8 fL (36.4-46.3); WHITE BLOOD COUNT 3.53 K/uL (4.8-10.8)
[2017-08-05 09:11] LABS: CALCIUM 9.5 mg/dl (8.5-10.1); CREATININE 0.94 mg/dl (0.60-1.20); POTASSIUM 3.7 mmol/L (3.5-5.1)
--- NOTE | 2017-08-05 09:42 | Gastroenterology Progress Note ---
Progress Note Date of Service: Aug 05, 2017 Subjective Pt evaluation today including: conversation w/ patient, conversation w/ family , physical exam, chart review, lab review, review of inpatient medication list Pt still quite confused, does know where she's currently at but not sure why she 's still in the hospital. She denies any CP, SOB, abd pain, n/v, bowels moved several times yesterday per her report though none recorded by RN. No signs of rectal bleeding per pt's report as well. Review of Systems Constitutional: No fever, No chills Respiratory: No cough, No shortness of breath Cardiac: No chest pain Abdomen: No pain, No nausea, No vomiting, No GI bleeding Medications Current Inpatient Medications Medications (Trade) Dose Ordered Sig/Gin Route Start Time Stop Time Status Last Admin Dose Admin Multivitamins (Multivitamin Tab) 1 tab DAILY PO 08/04/17 09:00 09/03/17 08:59 08/05/17 08:01 1 TAB Pramipexole Dihydrochloride (miraPEX TAB) 0.5 mg HS PO 08/03/17 21:00 09/02/17 20:59 08/04/17 20:55 0.5 MG Trimethoprim/ Sulfamethoxazole (Septra Ds 800/ 160MG Tab) 1 tab BID PO 08/03/17 21:00 08/08/17 20:59 08/05/17 08:01 1 TAB Tramadol HCl (Ultram Tab) 100 mg BID PRN PO 08/03/17 15:30 09/02/17 15:29 Calcium/Vitamin D (Caltrate Plus Tab) 1 tab DAILY PO 08/04/17 09:00 09/03/17 08:59 08/05/17 08:01 1 TAB Ondansetron HCl (Zofran Inj) 4 mg Q6H PRN IV 08/03/17 15:30 09/02/17 15:29 Pantoprazole Sodium (Protonix Tab) 40 mg QAM PO 08/04/17 09:00 09/03/17 08:59 08/05/17 08:02 40 MG Miscellaneous (Iv Fluids Completed) 1 ea PRN PRN N/A 08/03/17 16:15 08/03/18 16:14 Bisacodyl (Dulcolax Tab) 5 mg DAILY PO 08/05/17 09:00 09/04/17 08:59 08/05/17 08:04 5 MG Objective Vital Signs Date Time Temp Pulse Resp B/P (MAP) Pulse Ox O2 Delivery O2 Flow Rate FiO2 08/05/17 08:00 Room Air 08/05/17 07:17 37.0 55 18 119/75 (90) 92 Room Air 08/05/17 00:00 Room Air 08/04/17 23:40 37.1 62 16 123/74 (90) 91 Room Air 08/04/17 20:00 Room Air 08/04/17 15:46 Room Air 08/04/17 14:42 36.9 60 18 106/62 (77) 94 Room Air Physical Exam General Appearance: WD/WN, no apparent distress Eyes: normal inspection, PERRL, EOMI Neck: supple, no JVD, trachea midline Respiratory/Chest: normal breath sounds, no respiratory distress, no accessory muscle use Cardiovascular: regular rate, rhythm, no gallop, no murmur Abdomen: non tender, soft, + abnormal bowel sounds (hypoactive ) Extremities: normal inspection, no pedal edema, no calf tenderness Neurologic/Psych: alert, normal mood/affect, + disoriented Skin: normal color, no jaundice, no rash Laboratory Results Last 24 Hours Test 08/05/17 08:36 White Blood Count 3.53 K/uL Red Blood Count 3.40 M/uL Hemoglobin 9.7 g/dL Hematocrit 29.3 % Mean Corpuscular Volume 86.2 fL Mean Corpuscular Hemoglobin 28.5 pg Mean Corpuscular Hemoglobin Concent 33.1 g/dl RDW Standard Deviation 66.8 fL RDW Coefficient of Variation 21.3 % Platelet Count 392 K/uL Mean Platelet Volume 9.9 fL Sodium Level 130 mmol/L Potassium Level 3.7 mmol/L Chloride Level 98 mmol/L Carbon Dioxide Level 23 mmol/L Anion Gap 9.0 mmol/L Blood Urea Nitrogen 12 mg/dl Creatinine 0.94 mg/dl Est Creatinine Clear Calc Drug Dose 33.4 ml/min Estimated GFR () 63.2 Estimated GFR (Non- 54.5 BUN/Creatinine Ratio 12.9 Random Glucose 116 mg/dl Calcium Level 9.5 mg/dl Assessment and Plan Patient is a 87 year old female w worsening anemia, weight loss (30 lbs since May). Hgb improved from 7.8 to 9.4 after 1U PRBC transfusion. No jerod s/s of GI bleeding. Hx of diverticulosis, previous colonoscopies in [place] <5 yrs ago which son reports had findings of diverticulosis. Plans - Discussed with pt about EGD/Colonoscopy evaluations, she's not interested in any of these. With the weight loss and anemia, worry about possible malignancy. I did speak w pt's son about these also and he said he'll try to discuss with pt again -> family still hasn't decided about further endoscopic evals. From GI standpoint she's stable to be DC'd. PCP can refer her back to GI for EGD/ Colonoscopy eval should pt and family decide to have these done. - Will sign off, call if new questions/concerns arise.
[2017-08-05 16:11] VITALS: BP 118/54; PULSE 67; TEMP 36.8; O2SAT 95
--- NOTE | 2017-08-05 16:27 | Progress Note ---
Medicine Progress Note Date & Time of Visit: Aug 05, 2017 at 10:21. Subjective Pt was seen and examined Lying in bed with no distress Pt said that she wants to go home today She said that she feels fine Updated was provided to son over the phone Denies any chest pain, palpitation, dizziness and SOB Objective Physical Exam: General- No acute distress Head- atraumatic Eyes- PERRL, EOMI ENT- oropharynx clear Neck- supple, no JVD Lungs- No acute distress Heart- regular rhythm Abdomen- normal bowel sounds Extremities- no pretibial edema Neuro- alert, oriented x 3; PERRL, EOMI Skin- warm & dry Laboratory Results: Last 24 Hours Test 08/05/17 08:36 White Blood Count 3.53 K/uL Red Blood Count 3.40 M/uL Hemoglobin 9.7 g/dL Hematocrit 29.3 % Mean Corpuscular Volume 86.2 fL Mean Corpuscular Hemoglobin 28.5 pg Mean Corpuscular Hemoglobin Concent 33.1 g/dl RDW Standard Deviation 66.8 fL RDW Coefficient of Variation 21.3 % Platelet Count 392 K/uL Mean Platelet Volume 9.9 fL Sodium Level 130 mmol/L Potassium Level 3.7 mmol/L Chloride Level 98 mmol/L Carbon Dioxide Level 23 mmol/L Anion Gap 9.0 mmol/L Blood Urea Nitrogen 12 mg/dl Creatinine 0.94 mg/dl Est Creatinine Clear Calc Drug Dose 33.4 ml/min Estimated GFR () 63.2 Estimated GFR (Non- 54.5 BUN/Creatinine Ratio 12.9 Random Glucose 116 mg/dl Calcium Level 9.5 mg/dl Assessment & Plan Anemia Hbg on admission 7.8 Positive FOBT as per ER physician Hgb baseline of 10 Transfused 1 units PRBC yesterday Hgg 9.7 today GI on board, recommended EGD/colonoscopy to r/o any malignancy with the hx of weight loss, but pt refused Case discussed with Son today Continue protonix Stable UTI Continue Bactrim that was started outpatient on 08/02 Urine cx growth strep viridian Continue Bactrim Asymptomatic HYPONATREMIA Na on admission was 129 Possible related to thiazide diuretic and poor oral intake Na today 130 will check urine na and osmolarity Nephro consult Monitor BMP HTN BP stable HCTZ and Propranolol has been on hold Restless Leg Syndrome continue Mirapex DVT ppx SCDs CODE STATUS DNR DISPOSITION Will discharge home tomorrow Follow up with Dr. Osuna on 08/11 @ 12:45 am Consultants: Gastro Current Inpatient Medications: Current Inpatient Medications Medications (Trade) Dose Ordered Sig/Gin Route Start Time Stop Time Status Last Admin Dose Admin Multivitamins (Multivitamin Tab) 1 tab DAILY PO 08/04/17 09:00 09/03/17 08:59 08/05/17 08:01 1 TAB Pramipexole Dihydrochloride (miraPEX TAB) 0.5 mg HS PO 08/03/17 21:00 09/02/17 20:59 08/04/17 20:55 0.5 MG Trimethoprim/ Sulfamethoxazole (Septra Ds 800/ 160MG Tab) 1 tab BID PO 08/03/17 21:00 08/08/17 20:59 08/05/17 08:01 1 TAB Tramadol HCl (Ultram Tab) 100 mg BID PRN PO 08/03/17 15:30 09/02/17 15:29 Calcium/Vitamin D (Caltrate Plus Tab) 1 tab DAILY PO 08/04/17 09:00 09/03/17 08:59 08/05/17 08:01 1 TAB Ondansetron HCl (Zofran Inj) 4 mg Q6H PRN IV 08/03/17 15:30 09/02/17 15:29 Pantoprazole Sodium (Protonix Tab) 40 mg QAM PO 08/04/17 09:00 09/03/17 08:59 08/05/17 08:02 40 MG Miscellaneous (Iv Fluids Completed) 1 ea PRN PRN N/A 08/03/17 16:15 08/03/18 16:14 Bisacodyl (Dulcolax Tab) 5 mg DAILY PO 08/05/17 09:00 09/04/17 08:59 08/05/17 08:04 5 MG
[2017-08-05] MEDS: PRAMIPEXOLE DIHYDROCHLORIDE 0.5 MG TAB PO SCH (20:31)
[2017-08-05 23:36] VITALS: BP 146/84; PULSE 76; TEMP 36.9; O2SAT 92
[2017-08-06 07:20] LABS: HEMATOCRIT 27.9 % (37-47); HEMOGLOBIN 9.2 g/dL (12.0-16.0); MEAN CELL VOLUME 86.4 fL (80-100); MEAN CORPUSCULAR HEMOGLOBIN 28.5 pg (25-34); MEAN PLATELET VOLUME 10.4 fL (7.4-10.4); PLATELET COUNT 424 K/uL (130-400); RED CELL DISTRIBUTION WIDTH CV 21.5 % (11.5-14.5); WHITE BLOOD COUNT 3.33 K/uL (4.8-10.8)
[2017-08-06 07:28] VITALS: BP 129/65; PULSE 83; TEMP 37.1; O2SAT 94
[2017-08-06] MEDS: MULTIVITAMIN TAB PO SCH (08:03)
[2017-08-06] MEDS: BISACODYL 5 MG TABEC PO SCH (08:03)
[2017-08-06] MEDS: SULFAMETHOXAZOLE/TRIMETHOPRIM DS 800/160MG TAB PO SCH (08:03)
[2017-08-06] MEDS: PANTOprazole SOD 40 MG TAB PO SCH (08:03)
[2017-08-06] MEDS: CALCIUM 600MG + VIT D 400 IU TAB PO SCH (08:03)
[2017-08-06 08:14] LABS: CALCIUM 9.4 mg/dl (8.5-10.1); CREATININE 0.94 mg/dl (0.60-1.20); POTASSIUM 4.3 mmol/L (3.5-5.1)
[2017-08-06 14:55] LABS: OSMOLALITY,URINE 280 mOms/kg (500-800)
[2017-08-06 14:58] LABS: SODIUM RANDOM URINE 50 mEq/L
[2017-08-06 15:45] VITALS: BP 118/77; PULSE 97; TEMP 36.8; O2SAT 95
--- NOTE | 2017-08-06 16:29 | Progress Note ---
Medicine Progress Note Date & Time of Visit: Aug 06, 2017 at 12:20. Subjective Pt was seen and examined sitting in chair with no distress Pt is very anxious to go home Denies any chest pain, palpitation, dizziness and SOB Objective Last 8 Hrs Date Time Temp Pulse Resp B/P (MAP) Pulse Ox O2 Delivery O2 Flow Rate FiO2 08/06/17 15:45 36.8 97 22 118/77 (91) 95 Room Air Physical Exam: General- No acute distress Head- atraumatic Eyes- PERRL, EOMI ENT- oropharynx clear Neck- supple, no JVD Lungs- No acute distress Heart- regular rhythm Abdomen- normal bowel sounds Extremities- no pretibial edema Neuro- alert, oriented, PERRL, EOMI Skin- warm & dry Laboratory Results: Last 24 Hours Test 08/06/17 06:38 08/06/17 14:20 White Blood Count 3.33 K/uL Red Blood Count 3.23 M/uL Hemoglobin 9.2 g/dL Hematocrit 27.9 % Mean Corpuscular Volume 86.4 fL Mean Corpuscular Hemoglobin 28.5 pg Mean Corpuscular Hemoglobin Concent 33.0 g/dl RDW Standard Deviation 68.0 fL RDW Coefficient of Variation 21.5 % Platelet Count 424 K/uL Mean Platelet Volume 10.4 fL Sodium Level 133 mmol/L Potassium Level 4.3 mmol/L Chloride Level 101 mmol/L Carbon Dioxide Level 24 mmol/L Anion Gap 8.0 mmol/L Blood Urea Nitrogen 11 mg/dl Creatinine 0.94 mg/dl Est Creatinine Clear Calc Drug Dose 33.4 ml/min Estimated GFR () 63.2 Estimated GFR (Non- 54.5 BUN/Creatinine Ratio 11.7 Random Glucose 86 mg/dl Osmolality 274 mOsm/kg Calcium Level 9.4 mg/dl Urine Osmolality 280 mOms/kg Urine Random Sodium 50 mEq/L Assessment & Plan Anemia Hbg on admission 7.8 Positive FOBT as per ER physician Hgb baseline of 10 Transfused 1 units PRBC yesterday Hgg 9.2 today GI on board, recommended EGD/colonoscopy to r/o any malignancy with the hx of weight loss, but pt refused Son was updated Continue protonix Stable UTI Continue Bactrim that was started outpatient on 08/02 Urine cx growth strep viridian Will D/C Bactrim Asymptomatic HYPONATREMIA Na on admission was 129 Possible related to thiazide diuretic and poor oral intake Na today 133 Urine Na 50 and urine osmolarity 280 (low) nephrology consult cancelled case discussed with nephrology recommended to d/c Hctz on discharge Check BMP within 1 week If Na does not improve, follow up with nephrology as an outpatient HTN BP stable Will d/c HCTZ on discharge resume Propranolol Monitor BP and if BP starts to elevate consider to start on low dose Norvasc 2.5 mg Restless Leg Syndrome continue Mirapex DVT ppx SCDs CODE STATUS DNR DISPOSITION Will discharge home today Follow up with Dr. Osuna on 08/11 @ 12:45 am Consultants: Gastro Current Inpatient Medications: Current Inpatient Medications Medications (Trade) Dose Ordered Sig/Gin Route Start Time Stop Time Status Last Admin Dose Admin Multivitamins (Multivitamin Tab) 1 tab DAILY PO 08/04/17 09:00 09/03/17 08:59 08/06/17 08:03 1 TAB Pramipexole Dihydrochloride (miraPEX TAB) 0.5 mg HS PO 08/03/17 21:00 09/02/17 20:59 08/05/17 20:31 0.5 MG Trimethoprim/ Sulfamethoxazole (Septra Ds 800/ 160MG Tab) 1 tab BID PO 08/03/17 21:00 08/08/17 20:59 08/06/17 08:03 1 TAB Tramadol HCl (Ultram Tab) 100 mg BID PRN PO 08/03/17 15:30 09/02/17 15:29 Calcium/Vitamin D (Caltrate Plus Tab) 1 tab DAILY PO 08/04/17 09:00 09/03/17 08:59 08/06/17 08:03 1 TAB Ondansetron HCl (Zofran Inj) 4 mg Q6H PRN IV 08/03/17 15:30 09/02/17 15:29 Pantoprazole Sodium (Protonix Tab) 40 mg QAM PO 08/04/17 09:00 09/03/17 08:59 08/06/17 08:03 40 MG Miscellaneous (Iv Fluids Completed) 1 ea PRN PRN N/A 08/03/17 16:15 08/03/18 16:14 Bisacodyl (Dulcolax Tab) 5 mg DAILY PO 08/05/17 09:00 09/04/17 08:59 08/06/17 08:03 5 MG
--- NOTE | 2017-08-06 16:48 | Discharge Instructions ---
Discharge Instructions Date of Service Aug 06, 2017. Admission Reason for Admission: Anemia, Weakness Discharge Discharge Diagnosis / Problem: Anemia, Hyponatemia Discharge Goals Goal(s): Decrease discomfort, Improve function, Improve disease control Activity Recommendations Activity Limitations: resume your previous activity (as tolerated) . Instructions / Follow-Up Instructions / Follow-Up Follow up with your primary care provider Dr. Osuna on 08/11 @ 12:45 pm Follow up with Gastroenterology if you decide to get colonoscopy/endoscopy done as an outpatient Check CBC within 1 week Check BMP within 1 week to monitor sodium Hydrochlorothiazide was discontinued Monitor blood pressure Fall precaution Continue PT/OT Current Hospital Diet Patient's current hospital diet: Regular Diet Discharge Diet Recommended Diet: Regular Diet Pending Studies Studies pending at discharge: no Medical Emergencies . Who to Call and When: Medical Emergencies: If at any time you feel your situation is an emergency, please call 911 immediately. . Non-Emergent Contact Non-Emergency issues call your: Primary Care Provider Call Non-Emergent contact if: you have a fever, you have any medication questions . . "Provider Documentation" section prepared by Yelena Pineda. . VTE Core Measure Inpt VTE Proph given/why not?: SCD's
[2017-08-06 17:23] VITALS: BP 118/77; PULSE 97; TEMP 36.8; O2SAT 95
--- NOTE | 2017-08-06 19:41 | Nephrology Consultation ---
Nephrology Consultation Date of Consultation: Aug 06, 2017. Attending Physician: Dr Pineda Requesting Physician: Dr Pineda Reason for Consultation: hyponatremia History of Present Illness nephrology consult cancelled by Dr pineda Past Medical/Surgical History Medical Problems: (1) Anemia Status: Acute (2) Knee effusion Status: Acute (3) Weakness Status: Acute Family History Hypertension MOTHER Lung cancer BROTHER Social History Smoking Status: Never Smoker Drug Use: none Housing Status: lives alone Occupation Status: unemployed Allergies Coded Allergies: No Known Allergies (Unverified , 08/03/17) Medications Current Inpatient Medications Medications (Trade) Dose Ordered Sig/Gin Route Start Time Stop Time Status Last Admin Dose Admin Multivitamins (Multivitamin Tab) 1 tab DAILY PO 08/04/17 09:00 09/03/17 08:59 08/06/17 08:03 1 TAB Pramipexole Dihydrochloride (miraPEX TAB) 0.5 mg HS PO 08/03/17 21:00 09/02/17 20:59 08/05/17 20:31 0.5 MG Trimethoprim/ Sulfamethoxazole (Septra Ds 800/ 160MG Tab) 1 tab BID PO 08/03/17 21:00 08/08/17 20:59 08/06/17 08:03 1 TAB Tramadol HCl (Ultram Tab) 100 mg BID PRN PO 08/03/17 15:30 09/02/17 15:29 Calcium/Vitamin D (Caltrate Plus Tab) 1 tab DAILY PO 08/04/17 09:00 09/03/17 08:59 08/06/17 08:03 1 TAB Ondansetron HCl (Zofran Inj) 4 mg Q6H PRN IV 08/03/17 15:30 09/02/17 15:29 Pantoprazole Sodium (Protonix Tab) 40 mg QAM PO 08/04/17 09:00 09/03/17 08:59 08/06/17 08:03 40 MG Miscellaneous (Iv Fluids Completed) 1 ea PRN PRN N/A 08/03/17 16:15 08/03/18 16:14 Bisacodyl (Dulcolax Tab) 5 mg DAILY PO 08/05/17 09:00 09/04/17 08:59 08/06/17 08:03 5 MG Home Meds and Scripts Medications Dose Route/Sig Max Daily Dose Days Date Category Bactrim Ds 800MG/160MG (Trimethoprim/Sulfamethoxazole) Tab 1 Tab PO BID 08/03/17 Reported Pramipexole Dihydrochlori (Pramipexole Dihydrochloride) 0.5 Mg Tab 0.5 Mg PO HS 08/03/17 Reported Calcium 600 + D (Calcium Carbonate-Vitamin D) 1 Tab Tab 1 Tab PO DAILY 03/01/16 Reported Ultram (Tramadol HCl) 50 Mg Tab 100 Mg PO BID PRN 08/27/13 Reported Vitamin D3 400 (Cholecalciferol) 400 Unit Cap 400 Units PO DAILY 08/27/13 Reported Propranolol Hcl Er (Propranolol Hcl) 120 Mg Cap 120 Mg PO DAILY 08/27/13 Reported Hctz (Hydrochlorothiazide) 25 Mg Tab 25 Mg PO DAILY 03/29/12 Reported Multivitamin (Multiple Vitamin) 1 Tab Tab 1 Tab PO DAILY 03/29/12 Reported Physical Exam Date Time Temp Pulse Resp B/P (MAP) Pulse Ox O2 Delivery O2 Flow Rate FiO2 08/06/17 08:00 Room Air 08/06/17 07:28 37.1 83 129/65 (86) 94 Room Air 08/06/17 00:00 Room Air 08/05/17 23:36 36.9 76 20 146/84 (104) 92 Room Air 08/05/17 16:11 36.8 67 18 118/54 (75) 95 Room Air 08/05/17 16:00 Room Air Diagnostics Last 24 Hours Test 08/06/17 06:38 White Blood Count 3.33 K/uL Red Blood Count 3.23 M/uL Hemoglobin 9.2 g/dL Hematocrit 27.9 % Mean Corpuscular Volume 86.4 fL Mean Corpuscular Hemoglobin 28.5 pg Mean Corpuscular Hemoglobin Concent 33.0 g/dl RDW Standard Deviation 68.0 fL RDW Coefficient of Variation 21.5 % Platelet Count 424 K/uL Mean Platelet Volume 10.4 fL Sodium Level 133 mmol/L Potassium Level 4.3 mmol/L Chloride Level 101 mmol/L Carbon Dioxide Level 24 mmol/L Anion Gap 8.0 mmol/L Blood Urea Nitrogen 11 mg/dl Creatinine 0.94 mg/dl Est Creatinine Clear Calc Drug Dose 33.4 ml/min Estimated GFR () 63.2 Estimated GFR (Non- 54.5 BUN/Creatinine Ratio 11.7 Random Glucose 86 mg/dl Osmolality 274 mOsm/kg Calcium Level 9.4 mg/dl Diagnostic Radiology: Head CT > atrophy, microvascular changes; no acute process CXR>no acute cp process; chronic L basilar scar/atelectasis; ? loosening/ infection L humeral hardware Assessment & Plan neph consult cancelled by titi; pt not evaluated by nephro
--- NOTE | 2017-08-06 19:56 | Discharge Summary ---
Discharge Summary Date of Service Aug 06, 2017. Discharge Summary Admission Date: Aug 03, 2017 at 15:54 Discharge Date: Aug 06, 2017 Discharge Disposition: Home with services Principal Diagnosis: Anemia Secondary Diagnoses/Problems: Hyponatremia UTI Restless Leg Syndrome HTN Weakness Procedures: CHEST ONE VIEW PORTABLE CLINICAL HISTORY: 87 years-old Female presenting with CHEST PAIN. TECHNIQUE: Portable upright AP view of the chest was obtained. COMPARISON: 05/19/2017. FINDINGS: Atherosclerosis of the aortic arch. Cardiac silhouette normal in size. Pulmonary vascular prominence unchanged. Vague bibasilar opacities greater on the left unchanged. No large pleural effusion or pneumothorax. Intramedullary nail and interlocking screw fixation of the left humerus. Suggestion of radiolucency at the level of the humeral head/neck and proximal screw. Upper abdomen normal. IMPRESSION: 1. No acute cardiopulmonary disease. 2. Stable basilar scarring and/or atelectasis. 3. Suggestion of increased radiolucency at the left humeral head/neck associated with the proximal interlocking screw and intramedullary nail fixation. This could suggest loosening or infection. Electronically signed by: Mckinley Kelly M.D. 08/03/2017 1:28 PM Dictated Date/Time: 08/03/2017 1:[address] NON[address]AST CT DOSE: 638.56 mGycm HISTORY: weakness TECHNIQUE: Multiaxial CT images of the head were performed without the use of intravenous contrast. Automated exposure control was utilized for this study. A dose lowering technique was utilized adhering to the principles of ALARA. Comparison: Head CT 05/19/2017. Findings: Mild mucosal thickening within the left sphenoid sinus. No fluid levels within the paranasal sinuses. The mastoid air cells are clear. The calvarium and skull base are intact. There is no mass, hematoma, midline shift, acute infarct. White matter hypodensity is nonspecific but suggestive of microvascular ischemic change. The ventricles and sulci demonstrate mild age-related involutional changes. Impression: No acute intracranial abnormality. Atrophy and microvascular ischemic changes. Electronically signed by: Antony Falcon M.D. 08/03/2017 1:47 PM Dictated Date/Time: 08/03/2017 1:40 PM Consultations: Gastro Medication Reconciliation Continued Medications: Calcium Carbonate-Vitamin D (Calcium 600 + D) 1 Tab Tab 1 TAB PO DAILY Cholecalciferol (Vitamin D3 400) 400 Unit Cap 400 UNITS PO DAILY Multiple Vitamin (Multivitamin) 1 Tab Tab 1 TAB PO DAILY, TAB Pramipexole Dihydrochloride (Pramipexole Dihydrochlori) 0.5 Mg Tab 0.5 MG PO HS Propranolol Hcl (Propranolol Hcl Er) 120 Mg Cap 120 MG PO DAILY Tramadol (Ultram) 50 Mg Tab 100 MG PO BID PRN for Pain, TAB Discontinued Medications: Hydrochlorothiazide (Hctz) 25 Mg Tab 25 MG PO DAILY, TAB Sulfa/Trimethoprim (Bactrim Ds 800MG/160MG) Tab 1 TAB PO BID Admission Information HPI (per Admitting provider): This is an 87 year old female with a PMH of dementia, restless leg syndrome, HTN , previous history of provoked DVT, no longer on anticoagulation; a fall in May 2017 with fractured ribs and pneumothorax - presents with low hemoglobin. Was sent by primary care physician - was checked for urinary tract infection and labwork on 08/02 and was found to have Hgb of 7.8. As per patient' s son, who the patient lives with - patient has been feeling weak and more altered than usual. He was given Bactrim for a UTI yesterday (08/02) and cultures pending. During my exam, no acute distress noted. Physical Exam (per Admitting): General Appearance: no apparent distress Head: normocephalic, atraumatic Eyes: normal inspection Respiratory/Chest: lungs clear, normal breath sounds, no respiratory distress, no accessory muscle use Cardiovascular: regular rate, rhythm, no edema, no murmur Abdomen/GI: normal bowel sounds, non tender, soft Extremities/Musculoskelatal: normal inspection, no calf tenderness, normal capillary refill, no pedal edema, normal range of motion Neurologic/Psych: no motor/sensory deficits, alert, + pertinent finding ( underlying dementia) Skin: normal color Lymphatic: no adenopathy Hospital Course Anemia Hbg on admission 7.8 Positive FOBT as per ER physician Hgb baseline of 10 Transfused 1 units PRBC yesterday Hgg 9.2 today GI on board, recommended EGD/colonoscopy to r/o any malignancy with the hx of weight loss, but pt refused Son was updated Continue protonix Stable UTI Continue Bactrim that was started outpatient on 08/02 Urine cx growth strep viridian Will D/C Bactrim Asymptomatic HYPONATREMIA Na on admission was 129 Possible related to thiazide diuretic and poor oral intake Na today 133 Urine Na 50 and urine osmolarity 280 (low) nephrology consult cancelled case discussed with nephrology recommended to d/c Hctz on discharge Check BMP within 1 week If Na does not improve, follow up with nephrology as an outpatient HTN BP stable Will d/c HCTZ on discharge resume Propranolol Monitor BP and if BP starts to elevate consider to start on low dose Norvasc 2.5 mg Restless Leg Syndrome continue Mirapex Weakness PT/OT Fall precaution DVT ppx SCDs CODE STATUS DNR DISPOSITION Will discharge home today Follow up with Dr. Osuna on 08/11 @ 12:45 am Total time spent on discharge = 35 MINUTES This includes examination of the patient, discharge planning, medication reconciliation, and communication with other providers. Discharge Instructions Discharge Instructions Date of Service Aug 06, 2017. Admission Reason for Admission: Anemia, Weakness Discharge Discharge Diagnosis / Problem: Anemia, Hyponatemia Discharge Goals Goal(s): Decrease discomfort, Improve function, Improve disease control Activity Recommendations Activity Limitations: resume your previous activity (as tolerated) . Instructions / Follow-Up Instructions / Follow-Up Follow up with your primary care provider Dr. Osuna on 08/11 @ 12:45 pm Follow up with Gastroenterology if you decide to get colonoscopy/endoscopy done as an outpatient Check CBC within 1 week Check BMP within 1 week to monitor sodium Hydrochlorothiazide was discontinued Monitor blood pressure Fall precaution Continue PT/OT Current Hospital Diet Patient's current hospital diet: Regular Diet Discharge Diet Recommended Diet: Regular Diet Pending Studies Studies pending at discharge: no Medical Emergencies . Who to Call and When: Medical Emergencies: If at any time you feel your situation is an emergency, please call 911 immediately. . Non-Emergent Contact Non-Emergency issues call your: Primary Care Provider Call Non-Emergent contact if: you have a fever, you have any medication questions . . "Provider Documentation" section prepared by eYlena Pineda. . VTE Core Measure Inpt VTE Proph given/why not?: SCD's Additional Copies To Maritza Osuna D.O.
== END 2017-08-06 19:05 | disposition home health service (06) | DRG 812 ==
LOC: EDBD 12:35 → C.EDB 12:37 → C.MS2W 15:54 → ENRESERV 17:06
PROVIDERS: ADMIT Family Medicine; ATTEND Internal Medicine
DX: D64.9 Anemia, unspecified (principal); N39.0 Urinary tract infection, site not specified; E87.1 Hypo-osmolality and hyponatremia; Z86.73 Personal history of transient ischemic attack (TIA), and cerebral infarction without residual deficits; E78.5 Hyperlipidemia, unspecified; Z96.659 Presence of unspecified artificial knee joint; F03.90 Unspecified dementia, unspecified severity, without behavioral disturbance, psychotic disturbance, mood disturbance, and anxiety; G25.81 Restless legs syndrome; K57.90 Diverticulosis of intestine, part unspecified, without perforation or abscess without bleeding; I10 Essential (primary) hypertension; Z86.718 Personal history of other venous thrombosis and embolism; Z53.29 Procedure and treatment not carried out because of patient's decision for other reasons; Z85.41 Personal history of malignant neoplasm of cervix uteri

== ENCOUNTER 2017-08-07 12:17 | Inpatient (IN) | payer OTHER ==
[~2017-08-07] VITALS: Ht 157.5 cm; Wt 57.0 kg
[~2017-08-07 12:17] MED LIST changes: +PRAM0.5T10 PO; +SULF800T23 PO
[2017-08-07] MEDS ORDERED: SODIUM CHLORIDE 0.9% 1000ML 250 ML IV STA (12:36)
[2017-08-07] MEDS ORDERED: SODIUM CHLORIDE 0.9% 1000ML 1,000 ML IV STA (12:36)
--- NOTE | 2017-08-07 12:37 | EMERGENCY ROOM VISIT NOTE ---
History Report prepared by Wil: Adrien Foreman Under the Supervision of: Dr. Dong Sheets M.D. First contact with patient: 12:22 Chief Complaint: FALL Stated Complaint: FALL/L-SHOULDER PAIN History of Present Illness The patient is an 87 year old female who presents to the Emergency Room after a resolved fall that occurred last evening. The patient states this is the second time she has fell. She reports she was on her way to bed and became weak. The patient notes she could not get up after she fell. She states she was on the floor for a while and kept dosing off. The patient reports she lives by herself. EMS notes the patient was discharged last evening for anemia. The patient's son saw her today and noted she has dementia and is acting baseline. The patient denies chest pain, a headache, and abdominal pain. HPI limited secondary to the patient's dementia. Source of History: patient, EMS History Limited By: dementia Review of Systems ROS limited secondary to the patient's dementia. Past Medical & Surgical Medical Problems: (1) Cerebrovascular disease (2) Cholelithiasis (3) CVA (cerebral infarction) (4) Diverticular disease of colon (5) Diverticulitis (6) Dyslipidemia (7) Hip fracture (8) History of cervical cancer (9) History of Clostridium difficile infection (10) History of DVT (deep vein thrombosis) (11) Hypertension (12) Migraine Surgical Problems: (1) S/P knee replacement (2) Status post appendectomy (3) Status post cardiac catheterization (4) Status post hysterectomy Old medical records were reviewed. Nurse's notes were reviewed and I agree with. Family History Hypertension MOTHER Lung cancer BROTHER Social History Smoking Status: Never Smoker Drug Use: none Housing Status: lives alone Occupation Status: unemployed Current/Historical Medications Scheduled Calcium Carbonate-Vitamin D (Calcium 600 + D), 1 TAB PO QAM Cholecalciferol (Vitamin D3 400), 400 UNITS PO QAM Multiple Vitamin (Multivitamin), 1 TAB PO QAM Pramipexole Dihydrochloride (Pramipexole Dihydrochlori), 0.5 MG PO HS Propranolol Hcl (Propranolol Hcl Er), 120 MG PO QAM Allergies Coded Allergies: No Known Allergies (Unverified , 08/07/17) Physical Exam Vital Signs Date Time Temp Pulse Resp B/P (MAP) Pulse Ox O2 Delivery O2 Flow Rate FiO2 2/3/18 13:45 105 18 128/85 98 Room Air 08/07/17 12:53 104 08/07/17 12:19 36.4 116 18 113/81 97 Room Air Physical Exam General: Non-ill appearing older female in no acute distress. Base line dementia. HEENT: Normal cephalic atraumatic. Pupils are equal round and reactive to light. Extraocular movements are intact. Oropharynx is pink with moist mucous membranes. No swelling of the mouth lips or tongue. Neck: Supple with a midline trachea. No meningeal signs or stiffness, no JVD or bruits. No Stridor. Chest: Clear to auscultation bilaterally. No wheezes or rhonchi. No increased work of breathing. Heart: regular rate and rhythm. Abdomen: Soft nontender, nondistended without rebound guarding or rigidity. Extremities: No cyanosis clubbing or edema. No calf tenderness or assymetry. Abrasion on the left shoulder. Large 8cm laceration to the right mild proximal arm - no active bleeding. Spine/Back. Non tender to palpation. No CVA tenderness Skin: Good turgor without rashes. Neurologic exam: Cranial nerves two through 12 are intact. Motor and sensation are intact and symmetrical throughout. Medical Decision & Procedures ER Provider Diagnostic Interpretation: X-ray results as stated below per interpretation by me and the radiologist: CHEST ONE VIEW PORTABLE CLINICAL HISTORY: Fall. Chest pain. COMPARISON STUDY: Chest CT May 19, 2017 and chest radiograph August 03, 2017. FINDINGS: Left humeral internal fixation is noted. No pneumothorax or pleural effusion is noted. There is no consolidation or evidence of pulmonary edema. Several healing left upper rib fractures are noted. No consolidation is identified. IMPRESSION: No acute cardiopulmonary findings. No change in appearance of the chest. Electronically signed by: Kavin Hercules M.D. 08/07/2017 1:51 PM Dictated Date/Time: 08/07/2017 1:47 PM R HUMERUS MIN 2 VIEWS ROUTINE CLINICAL HISTORY: Right arm pain following fall. COMPARISON: None FINDINGS: Alignment of the right shoulder and elbow is anatomic. There is no acute fracture of the right humerus. There is moderate osteoarthritis of the right acromioclavicular joint. IMPRESSION: No acute fracture of the right humerus. Electronically signed by: Kavin Hercules M.D. 08/07/2017 1:54 PM Dictated Date/Time: 08/07/2017 1:52 PM L SHOULDER MIN 2 VIEWS ROUTINE CLINICAL HISTORY: Fall. COMPARISON: Chest CT May 19, 2017 FINDINGS: Left internal fixation hardware is partially imaged on this exam. There is a healed fracture of the mid shaft of the left humerus. An ossific density along the superolateral aspect of the left humeral head is chronic. No acute fracture is identified. There is moderate arthritis of the left shoulder. Healing left rib fractures are noted. IMPRESSION: 1. No acute fracture or dislocation of the left shoulder. 2. Healed left humeral fracture status post internal fixation. 3. Moderate osteoarthritis of the left shoulder. Electronically signed by: Kavin Hercules M.D. 08/07/2017 1:52 PM Dictated Date/Time: 08/07/2017 1:51 PM Laboratory Results 08/07/17 13:40 Red Blood Count 3.35, Mean Corpuscular Volume 86.9, Mean Corpuscular Hemoglobin 29.0, Mean Corpuscular Hemoglobin Concent 33.3, Mean Platelet Volume 9.9, Neutrophils (%) (Auto) 75.1, Lymphocytes (%) (Auto) 18.1, Monocytes (%) (Auto) 3.3, Eosinophils (%) (Auto) 2.2, Basophils (%) (Auto) 0.4, Neutrophils # (Auto) 3.40, Lymphocytes # (Auto) 0.82, Monocytes # (Auto) 0.15, Eosinophils # (Auto) 0.10, Basophils # (Auto) 0.02 08/07/17 13:40 Test 08/07/17 12:44 08/07/17 13:40 08/07/17 13:48 Urine Color DK YELLOW Urine Appearance TURBID (CLEAR) Urine pH 5.5 (4.5-7.5) Urine Specific [place] 1.023 (1.000-1.030) Urine Protein TRACE (NEG) Urine Glucose (UA) NEG (NEG) Urine Ketones TRACE (NEG) Urine Occult Blood NEG (NEG) Urine Nitrite NEG (NEG) Urine Bilirubin NEG (NEG) Urine Urobilinogen NEG (NEG) Urine Leukocyte Esterase LARGE (NEG) Urine WBC (Auto) >30 /hpf (0-5) Urine RBC (Auto) 0-4 /hpf (0-4) Urine Hyaline Casts (Auto) 1-5 /lpf (0-5) Urine Epithelial Cells (Auto) 5-10 /lpf (0-5) Urine Bacteria (Auto) 3+ (NEG) Urine Yeast (Auto) (NONE PRSENT) White Blood Count 4.53 K/uL (4.8-10.8) Red Blood Count 3.35 M/uL (4.2-5.4) Hemoglobin 9.7 g/dL (12.0-16.0) Hematocrit 29.1 % (37-47) Mean Corpuscular Volume 86.9 fL (80-100) Mean Corpuscular Hemoglobin 29.0 pg (25-34) Mean Corpuscular Hemoglobin Concent 33.3 g/dl (32-36) Platelet Count 450 K/uL (130-400) Mean Platelet Volume 9.9 fL (7.4-10.4) Neutrophils (%) (Auto) 75.1 % Lymphocytes (%) (Auto) 18.1 % Monocytes (%) (Auto) 3.3 % Eosinophils (%) (Auto) 2.2 % Basophils (%) (Auto) 0.4 % Neutrophils # (Auto) 3.40 K/uL (1.4-6.5) Lymphocytes # (Auto) 0.82 K/uL (1.2-3.4) Monocytes # (Auto) 0.15 K/uL (0.11-0.59) Eosinophils # (Auto) 0.10 K/uL (0-0.5) Basophils # (Auto) 0.02 K/uL (0-0.2) RDW Standard Deviation 67.3 fL (36.4-46.3) RDW Coefficient of Variation 21.5 % (11.5-14.5) Immature Granulocyte % (Auto) 0.9 % Immature Granulocyte # (Auto) 0.04 K/uL (0.00-0.02) Giant Platelets 1+ Acanthocytes 1+ Schistocytes 1+ Anion Gap 11.0 mmol/L (3-11) Estimated GFR () 44.8 Estimated GFR (Non- 38.6 BUN/Creatinine Ratio 14.1 (10-20) Calcium Level 10.1 mg/dl (8.5-10.1) Total Bilirubin 0.7 mg/dl (0.2-1) Direct Bilirubin 0.2 mg/dl (0-0.2) Aspartate Amino Transf (AST/SGOT) 18 U/L (15-37) Alanine Aminotransferase (ALT/SGPT) 15 U/L (12-78) Alkaline Phosphatase 69 U/L (45-117) Total Creatine Kinase 59 U/L (26-192) Creatine Kinase MB 2.4 ng/ml (0.5-3.6) Creatine Kinase MB Ratio 4.1 (0-3.0) Total Protein 7.2 gm/dl (6.4-8.2) Albumin 3.1 gm/dl (3.4-5.0) Lipase 92 U/L (73-393) Bedside Troponin I 0.030 ng/ml (0-0.045) Laboratory studies as stated above per my review. Medications Administered Medications (Trade) Dose Ordered Sig/Gin Route Start Time Stop Time Status Last Admin Dose Admin Sodium Chloride 250 ml @ 999 mls/hr Q16M STAT IV 08/07/17 12:36 08/07/17 12:51 DC 08/07/17 13:51 999 MLS/HR Sodium Chloride 1,000 ml @ 100 mls/hr Q10H STAT IV 08/07/17 12:36 08/07/17 16:41 DC 08/07/17 14:03 100 MLS/HR ECG Indication: weakness Rate (beats per minute): 104 Rhythm: sinus tachycardia Findings: no acute ischemic change, other (poor r wave progression, poor baseline for interpretation ) Comparison ECG Date: 08/03/17 Change: change: Rate has increased. Patient's electrocardiogram was interpreted by me. ED Course 1223: Past medical records reviewed. The patient was evaluated in room B11B, and a complete history and physical examination were performed. 1236: Ordered Sodium Chloride 1000 ml @ 100 mls/hr IV, Sodium Chloride 250 ml @ 999 mls/hr IV 1245: Ordered Lidocaine HCL 20 ml INFIL 1416 I reevaluated the patient and discussed the case with her son. He states the patient was on the ground all night. 1428 I reevaluated the patient. Her laceration is being repaired by Dong Dover PA-C. Please refer to his procedure note for more information. 1434 I discussed the patient's case with Dr. Doll, [facility] Hospitalist. He will evaluate the patient for further management and care. 1447 I reevaluated the patient and her laceration repair is almost complete 1504: Upon reevaluation, the patient is resting comfortably with the laceration repair complete. I discussed the results and treatment plan with the patient's son. He verbalized agreement of the treatment plan. The patient will be evaluated for further management. Medical Decision Differentials include, but are not limited to; syncope, arrhythmia, orthopedic injury, rhabdomyolysis, cardiac disease, electrolyte or metabolic abnormality. This patient comes in as described above. She was discharged yesterday and last evening he fell and was on the floor all night apparently. She has a laceration on her right arm which was repaired by Dong PACK. It is 8 cm and 12 sutures were placed. Please refer to his note. She has an abrasion to the left shoulder. X-rays were obtained and show no fractures or abnormalities. Blood work was obtained as well as EKG chest x-ray and urinalysis. She has baseline anemia which does not look any worse than yesterday. Her urine creatinine are mildly elevated compared to yesterday she could have some dehydration. She was hydrated with IV normal saline while she was here. Her CK thus far is normal and no evidence suggest rhabdomyolysis. Her urinalysis does suggest a possible UTI. I do think she needs to be observed /admitted for further treatment and evaluation. [facility] Head Trauma GCS Score: 14 Medication Reconcilliation Current Medication List: was personally reviewed by me Blood Pressure Screening Patient's blood pressure: Normal blood pressure Blood pressure disposition: Did not require urgent referral Consults Time Called: 1431 [facility] Phys[facility] Returned Call: 1434 I discussed the patient's case with [facility]. He will evaluate the patient for further management and care. Impression Primary Impression: Weakness Additional Impressions: Fall Dehydration Laceration Scribe Attestation The scribe's documentation has been prepared under my direction and personally reviewed by me in its entirety. I confirm that the note above accurately reflects all work, treatment, procedures, and medical decision making performed by me. Departure Information Dispostion Being Evaluated By Hospitalist Referrals Maritza Osuna D.O. (PCP) Patient Instructions [facility] Problem Qualifiers
[2017-08-07] MEDS ORDERED: XYLOCAINE 1%/SOD BICARB 20 ML VIAL INFIL ONE (12:45)
--- NOTE | 2017-08-07 13:52 | DIAGNOSTIC IMAGING REPORT ---
CHEST ONE VIEW PORTABLE CLINICAL HISTORY: Fall. Chest pain. COMPARISON STUDY: Chest CT May 19, 2017 and chest radiograph August 03, 2017. FINDINGS: Left humeral internal fixation is noted. No pneumothorax or pleural effusion is noted. There is no consolidation or evidence of pulmonary edema. Several healing left upper rib fractures are noted. No consolidation is identified. IMPRESSION: No acute cardiopulmonary findings. No change in appearance of the chest. Electronically signed by: Kavin Hercules M.D. 08/07/2017 1:51 PM Dictated Date/Time: 08/07/2017 1:47 PM
--- NOTE | 2017-08-07 13:54 | DIAGNOSTIC IMAGING REPORT ---
L SHOULDER MIN 2 VIEWS ROUTINE CLINICAL HISTORY: Fall. COMPARISON: Chest CT May 19, 2017 FINDINGS: Left internal fixation hardware is partially imaged on this exam. There is a healed fracture of the mid shaft of the left humerus. An ossific density along the superolateral aspect of the left humeral head is chronic. No acute fracture is identified. There is moderate arthritis of the left shoulder. Healing left rib fractures are noted. IMPRESSION: 1. No acute fracture or dislocation of the left shoulder. 2. Healed left humeral fracture status post internal fixation. 3. Moderate osteoarthritis of the left shoulder. Electronically signed by: Kavin Hercules M.D. 08/07/2017 1:52 PM Dictated Date/Time: 08/07/2017 1:51 PM
--- NOTE | 2017-08-07 13:55 | DIAGNOSTIC IMAGING REPORT ---
R HUMERUS MIN 2 VIEWS ROUTINE CLINICAL HISTORY: Right arm pain following fall. COMPARISON: None FINDINGS: Alignment of the right shoulder and elbow is anatomic. There is no acute fracture of the right humerus. There is moderate osteoarthritis of the right acromioclavicular joint. IMPRESSION: No acute fracture of the right humerus. Electronically signed by: Kavin Hercules M.D. 08/07/2017 1:54 PM Dictated Date/Time: 08/07/2017 1:52 PM
[2017-08-07 14:02] LABS: BASO % 0.4 %; BASO ABS # 0.02 K/uL (0-0.2); EOS % 2.2 %; HEMATOCRIT 29.1 % (37-47); HEMOGLOBIN 9.7 g/dL (12.0-16.0); IG# 0.04 K/uL (0.00-0.02); LYMPH % 18.1 %; LYMPH ABS # 0.82 K/uL (1.2-3.4); MEAN CELL VOLUME 86.9 fL (80-100); MEAN CORPUSCULAR HGB CONC 33.3 g/dl (32-36); MEAN PLATELET VOLUME 9.9 fL (7.4-10.4); MONO % 3.3 %; MONO ABS # 0.15 K/uL (0.11-0.59); NEUT % 75.1 %; PLATELET COUNT 450 K/uL (130-400); RED CELL DISTRIBUTION WIDTH CV 21.5 % (11.5-14.5); RED CELL DISTRIBUTION WIDTH SD 67.3 fL (36.4-46.3); WHITE BLOOD COUNT 4.53 K/uL (4.8-10.8)
[2017-08-07 14:20] LABS: ALBUMIN 3.1 gm/dl (3.4-5.0); ALT/SGPT 15 U/L (12-78); CALCIUM 10.1 mg/dl (8.5-10.1); CARBON DIOXIDE 22 mmol/L (21-32); CREATININE 1.25 mg/dl (0.60-1.20); GLUCOSE 112 mg/dl (70-99); LIPASE 92 U/L (73-393); POTASSIUM 4.4 mmol/L (3.5-5.1); SODIUM 133 mmol/L (136-145)
[2017-08-07 14:25] LABS: ALKALINE PHOSPHATASE 69 U/L (45-117); AST/SGOT 18 U/L (15-37); CKMB 2.4 ng/ml (0.5-3.6); TOTAL PROTEIN 7.2 gm/dl (6.4-8.2)
[2017-08-07] MEDS ORDERED: ACETAMINOPHEN 325 MG TAB PO PRN (15:00)
[2017-08-07] MEDS ORDERED: ONDANSETRON INJ 2 MG/ML 2 ML VIAL IV PRN (15:00)
[2017-08-07 15:01] LABS: BLOOD UREA NITROGEN 18 mg/dl (7-18)
--- NOTE | 2017-08-07 15:08 | EMERGENCY ROOM VISIT NOTE ---
ED Visit Note 87-year-old female who I was asked by Dr. Sheets, ED attending physician, to perform a right posterior triceps region laceration repair. Please see Dr. Sheets's dictation for further treatment and final disposition. PROCEDURE NOTE: The patient provided verbal consent for laceration repair under local anesthesia. Using buffered 1% lidocaine without epinephrine, good local anesthesia was administered. The wound was then peripherally cleansed with iodine, then the wound was irrigated with normal saline. The wound contamination was noted. There does not appear to be any involvement of the underlying vasculature or bone. There was good hemostasis. The wound was then approximated using 4-0 nylon simple interrupted sutures 12. A bacitracin bulky pressure dressing was applied. The patient tolerated the procedure well.
[2017-08-07 16:50] VITALS: BP 124/74; PULSE 101; TEMP 36.7; Ht 157.5 cm; Wt 57.0 kg
[2017-08-07] MEDS ORDERED: SODIUM CHLORIDE 0.9% 1000ML 1,000 ML IV SCH (17:00)
--- NOTE | 2017-08-07 17:04 | History and Physical ---
History & Physical Date & Time of Service: Aug 07, 2017 at 15:23 Chief Complaint: Fall/L-Shoulder Pain Primary Care Physician: Maritza Osuna D.O. History of Present Illness Source: patient, family, clinic records, hospital records This is an 87 year old female with a PMH of dementia, restless leg syndrome, HTN , anemia, previous history of provoked DVT, no longer on anticoagulation; a fall in May 2017 with fractured ribs and pneumothorax. Recent admission at [facility] on 08/03 for anemia and UTI. Was discharged on 08/06 to home with home health. As per son, she was doing well at home, watching TV. He left her apartment around 10PM and states he found her this morning around 10AM. As per patient, she states she was getting back in her bed to go to sleep; she fell when she missed her bed when trying to lay down. She states she does not remember if she clicked her Life Alert. She tried to drag herself to the living room, and that's when the son found her. She presented here, found to have an 8cm laceration on her R triceps. This was repaired by the ER staff. Imaging does not suggest any acute fractures. Currently patient is pain free. History from the patient was limited due to underlying dementia. Geriatric Assessment * Patient lives alone. * Ambulates at baseline with walker. * Uses depends, but performs her own toileting. * Upper and lower dentures, glasses, does not use hearing aids. * Patient's son offers support almost daily. * Patient's son makes sure she has food twice daily. Patient refused meals on wheels. * Underlying dementia. * Mood is stable. * Performs most of her own ADLs at baseline. 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 (5) Diverticulitis Status: Resolved (6) Dyslipidemia Status: Chronic (7) Hip fracture Status: Resolved (8) History of cervical cancer Status: Chronic (9) History of Clostridium difficile infection Status: Chronic (10) History of DVT (deep vein thrombosis) Permanent Comment: 1998 associated with ankle fracture Status: Resolved (11) Hypertension Status: Chronic (12) Migraine Status: Chronic Surgical Problems: (1) S/P knee replacement Status: Chronic (2) Status post appendectomy Status: Chronic (3) Status post cardiac catheterization Permanent Comment: [facility] 2009 minimal nonocclusive disease Status: Chronic (4) Status post hysterectomy Permanent Comment: cervical Ca Status: Chronic Family History Hypertension MOTHER Lung cancer BROTHER Social History Smoking Status: Former Smoker Drug Use: none Occupational Status: unemployed Immunizations History of Influenza Vaccine: Yes History of Tetanus Vaccine?: Unknown History of Pneumococcal: Yes Pneumococcal Date: Apr 23, 2012 History of Hepatitis B Vaccine: No Allergies Coded Allergies: No Known Allergies (Unverified , 08/07/17) Home Medications Scheduled Calcium Carbonate-Vitamin D (Calcium 600 + D), 1 TAB PO QAM Cholecalciferol (Vitamin D3 400), 400 UNITS PO QAM Multiple Vitamin (Multivitamin), 1 TAB PO QAM Pramipexole Dihydrochloride (Pramipexole Dihydrochlori), 0.5 MG PO HS Propranolol Hcl (Propranolol Hcl Er), 120 MG PO QAM Review of Systems Difficult to obtain due to underlying dementia. She answered a few questions regarding ROS, but difficult to ascertain how accurate because her answers change. Constitutional: + weakness Respiratory: No cough, No sputum, No shortness of breath, No dyspnea on exertion, No dyspnea at rest, No hemoptysis Cardiovascular: No chest pain Musculoskeletal: No joint pain, No muscle pain Genitourinary - Female: + urinary incontinence Neurologic: + balance problems Physical Exam Vital Signs Date Time Temp Pulse Resp B/P (MAP) Pulse Ox O2 Delivery O2 Flow Rate FiO2 08/07/17 13:45 105 18 128/85 98 Room Air 08/07/17 12:53 104 08/07/17 12:19 36.4 116 18 113/81 97 Room Air General Appearance: WD/WN, no apparent distress, + thin Head: normocephalic, atraumatic Eyes: normal inspection ENT: + pertinent finding (hard of hearing) Respiratory/Chest: chest non-tender, lungs clear, normal breath sounds, no respiratory distress, no accessory muscle use Cardiovascular: regular rate, rhythm, no edema, no JVD, no murmur, normal peripheral pulses Abdomen/GI: normal bowel sounds, non tender, soft Extremities/Musculoskelatal: normal capillary refill, no pedal edema, + pertinent finding (+R arm is bandaged/wrapped; L shoulder with some bruising) Neurologic/Psych: alert, normal mood/affect, + disoriented, + pertinent finding (underlying dementia) Skin: normal color Lymphatic: no adenopathy Diagnostics Laboratory Results Results Past 24 Hours Test 08/07/17 12:36 08/07/17 12:44 08/07/17 13:40 08/07/17 13:48 Range/Units Creatine Kinase MB Ratio 4.1 0-3.0 Urine Color DK YELLOW Urine Appearance TURBID CLEAR Urine pH 5.5 4.5-7.5 Urine Specific Valentine 1.023 1.000-1.030 Urine Protein TRACE NEG Urine Glucose (UA) NEG NEG Urine Ketones TRACE NEG Urine Occult Blood NEG NEG Urine Nitrite NEG NEG Urine Bilirubin NEG NEG Urine Urobilinogen NEG NEG Urine Leukocyte Esterase LARGE NEG Urine WBC (Auto) >30 0-5 /hpf Urine RBC (Auto) 0-4 0-4 /hpf Urine Hyaline Casts (Auto) 1-5 0-5 /lpf Urine Epithelial Cells (Auto) 5-10 0-5 /lpf Urine Bacteria (Auto) 3+ NEG Urine Yeast (Auto) NONE PRSENT White Blood Count 4.53 4.8-10.8 K/uL Red Blood Count 3.35 4.2-5.4 M/uL Hemoglobin 9.7 12.0-16.0 g/dL Hematocrit 29.1 37-47 % Mean Corpuscular Volume 86.9 80-100 fL Mean Corpuscular Hemoglobin 29.0 25-34 pg Mean Corpuscular Hemoglobin Concent 33.3 32-36 g/dl Platelet Count 450 130-400 K/uL Mean Platelet Volume 9.9 7.4-10.4 fL Neutrophils (%) (Auto) 75.1 % Lymphocytes (%) (Auto) 18.1 % Monocytes (%) (Auto) 3.3 % Eosinophils (%) (Auto) 2.2 % Basophils (%) (Auto) 0.4 % Neutrophils # (Auto) 3.40 1.4-6.5 K/uL Lymphocytes # (Auto) 0.82 1.2-3.4 K/uL Monocytes # (Auto) 0.15 0.11-0.59 K/uL Eosinophils # (Auto) 0.10 0-0.5 K/uL Basophils # (Auto) 0.02 0-0.2 K/uL RDW Standard Deviation 67.3 36.4-46.3 fL RDW Coefficient of Variation 21.5 11.5-14.5 % Immature Granulocyte % (Auto) 0.9 % Immature Granulocyte # (Auto) 0.04 0.00-0.02 K/uL Giant Platelets 1+ Acanthocytes 1+ Schistocytes 1+ Sodium Level 133 136-145 mmol/L Potassium Level 4.4 3.5-5.1 mmol/L Chloride Level 100 98-107 mmol/L Carbon Dioxide Level 22 21-32 mmol/L Anion Gap 11.0 3-11 mmol/L Blood Urea Nitrogen 18 7-18 mg/dl Creatinine 1.25 0.60-1.20 mg/dl Estimated GFR () 44.8 Estimated GFR (Non- 38.6 BUN/Creatinine Ratio 14.1 10-20 Random Glucose 112 70-99 mg/dl Calcium Level 10.1 8.5-10.1 mg/dl Total Bilirubin 0.7 0.2-1 mg/dl Direct Bilirubin 0.2 0-0.2 mg/dl Aspartate Amino Transf (AST/SGOT) 18 15-37 U/L Alanine Aminotransferase (ALT/SGPT) 15 12-78 U/L Alkaline Phosphatase 69 45-117 U/L Total Creatine Kinase 59 26-192 U/L Creatine Kinase MB 2.4 0.5-3.6 ng/ml Total Protein 7.2 6.4-8.2 gm/dl Albumin 3.1 3.4-5.0 gm/dl Lipase 92 73-393 U/L Bedside Troponin I 0.030 0-0.045 ng/ml Microbiology Results 08/07/17 Urine Culture, Received Pending Diagnostic Radiology L SHOULDER MIN 2 VIEWS ROUTINE CLINICAL HISTORY: Fall. COMPARISON: Chest CT May 19, 2017 FINDINGS: Left internal fixation hardware is partially imaged on this exam. There is a healed fracture of the mid shaft of the left humerus. An ossific density along the superolateral aspect of the left humeral head is chronic. No acute fracture is identified. There is moderate arthritis of the left shoulder. Healing left rib fractures are noted. IMPRESSION: 1. No acute fracture or dislocation of the left shoulder. 2. Healed left humeral fracture status post internal fixation. 3. Moderate osteoarthritis of the left shoulder. R HUMERUS MIN 2 VIEWS ROUTINE CLINICAL HISTORY: Right arm pain following fall. COMPARISON: None FINDINGS: Alignment of the right shoulder and elbow is anatomic. There is no acute fracture of the right humerus. There is moderate osteoarthritis of the right acromioclavicular joint. IMPRESSION: No acute fracture of the right humerus. CHEST ONE VIEW PORTABLE CLINICAL HISTORY: Fall. Chest pain. COMPARISON STUDY: Chest CT May 19, 2017 and chest radiograph August 03, 2017. FINDINGS: Left humeral internal fixation is noted. No pneumothorax or pleural effusion is noted. There is no consolidation or evidence of pulmonary edema. Several healing left upper rib fractures are noted. No consolidation is identified. IMPRESSION: No acute cardiopulmonary findings. No change in appearance of the chest. EKG Sinus tachycardia Left axis deviation Inferior infarct , age undetermined possible Anterior infarct , age undetermined Impression Assessment and Plan This is an 87 year old female with a PMH of dementia, restless leg syndrome, HTN , anemia, previous history of provoked DVT, no longer on anticoagulation; a fall in May 2017 with fractured ribs and pneumothorax. - presents with a fall. Fall possibly mechanical; as per patient she was trying to get to bed and missed and fell down laying on the floor for around 12 hours will monitor her overnight PT/OT ordered may need placement - discharge planning evaluation placed Acute Kidney Injury patient with worsening kidney function likely from dehydration and being on the floor overnight gentle IV hydration monitor creat Urinary Tract Infection UA positive for leuks and +3 bacteria will start Rocephin cultures pending Restless Leg Syndrome continue home medications HTN blood pressure stable holding Propranolol for now DVT ppx SCDs DNR VTE Prophylaxis VTE Risk Assessment Done? Y/N: Yes Risk Level: Moderate
[2017-08-07] MEDS: CEFTRIAXONE SOD INJ 1 GM in DEXTROSE 5% ADD-VANTAGE 50ML 50 ML IV SCH (17:09)
[2017-08-07] MEDS ORDERED: TRAMADOL HCL 50 MG TAB PO PRN (17:15)
[2017-08-07] MEDS: PRAMIPEXOLE DIHYDROCHLORIDE 0.5 MG TAB PO SCH (21:37)
[2017-08-08] VITALS (7 sets, daily range): BP systolic 113–133; BP diastolic 53–92; PULSE 80–120; TEMP 36.4–36.7; O2SAT 96–98
[2017-08-08 07:51] LABS: HEMATOCRIT 25.7 % (37-47); HEMOGLOBIN 8.3 g/dL (12.0-16.0); MEAN CELL VOLUME 87.4 fL (80-100); MEAN CORPUSCULAR HEMOGLOBIN 28.2 pg (25-34); MEAN CORPUSCULAR HGB CONC 32.3 g/dl (32-36); MEAN PLATELET VOLUME 9.5 fL (7.4-10.4); PLATELET COUNT 377 K/uL (130-400); RED CELL DISTRIBUTION WIDTH SD 69.5 fL (36.4-46.3); WHITE BLOOD COUNT 4.27 K/uL (4.8-10.8)
[2017-08-08 08:28] LABS: CALCIUM 8.9 mg/dl (8.5-10.1); CREATININE 0.85 mg/dl (0.60-1.20); POTASSIUM 4.4 mmol/L (3.5-5.1)
[2017-08-08] MEDS: CHOLECALCIFEROL 400 INTER.UNIT TAB PO SCH (08:38)
[2017-08-08] MEDS: BOOST VANILLA PO SCH ×2 (08:38→17:35)
[2017-08-08] MEDS: MULTIVITAMIN TAB PO SCH (08:39)
[2017-08-08] MEDS: CALCIUM 600MG + VIT D 400 IU TAB PO SCH (08:39)
[2017-08-08 08:53] LABS: PHOSPHORUS 2.5 mg/dl (2.5-4.9)
--- NOTE | 2017-08-08 14:07 | Progress Note ---
Medicine Progress Note Date & Time of Visit: Aug 08, 2017 at 13:54. Subjective Pt was seen and examined Sitting in chair with no distress Pt said that she feels a little better She said that her right arm feels a little sore She refused to go to rehab due to previous experience at [facility] She said that she was not too happy with the way she was treating Denies any chest pain, palpitation, dizziness and SOB Objective Last 8 Hrs Date Time Temp Pulse Resp B/P (MAP) Pulse Ox O2 Delivery O2 Flow Rate FiO2 08/08/17 08:15 97 Room Air 08/08/17 07:11 36.7 99 20 116/74 (88) 97 Room Air Physical Exam: General- No acute distress Head- atraumatic Eyes- PERRL, EOMI ENT- oropharynx clear Neck- supple, no JVD Lungs- No wheezing Heart- tachycardia Abdomen- normal bowel sounds, soft Extremities- no calf tenderness, right forearm wrap Neuro- alert, oriented, PERRL, EOMI; no facial palsy, able to move all 4 extremities Skin- warm & dry Laboratory Results: Last 24 Hours Test 08/08/17 07:26 White Blood Count 4.27 K/uL Red Blood Count 2.94 M/uL Hemoglobin 8.3 g/dL Hematocrit 25.7 % Mean Corpuscular Volume 87.4 fL Mean Corpuscular Hemoglobin 28.2 pg Mean Corpuscular Hemoglobin Concent 32.3 g/dl RDW Standard Deviation 69.5 fL RDW Coefficient of Variation 22.0 % Platelet Count 377 K/uL Mean Platelet Volume 9.5 fL Sodium Level 135 mmol/L Potassium Level 4.4 mmol/L Chloride Level 105 mmol/L Carbon Dioxide Level 23 mmol/L Anion Gap 6.0 mmol/L Blood Urea Nitrogen 13 mg/dl Creatinine 0.85 mg/dl Est Creatinine Clear Calc Drug Dose 36.9 ml/min Estimated GFR () 71.4 Estimated GFR (Non- 61.6 BUN/Creatinine Ratio 15.4 Random Glucose 87 mg/dl Calcium Level 8.9 mg/dl Phosphorus Level 2.5 mg/dl Magnesium Level 2.0 mg/dl Total Creatine Kinase 24 U/L Assessment & Plan S/P Fall mechanical due to mechanical fall CK level wnl PT/OT fall precaution Recommend inpatient rehab Pt refused to go anywhere. she wants to go back to her apartment Acute Kidney Injury Creatine on admission 1.25 Received IVF creatine 0.85 today Resolved Urinary Tract Infection Complaint of dysuria UA positive for leuks and +3 bacteria Continue Rocephin Preliminary urine cx grew alpha strep not enterococcus Follow up final cx Restless Leg Syndrome continue home medications HTN BP stable Will resume propranolol DVT ppx SCDs (due to recent admission for anemia) CODE STATUS DNR DISPOSITION May need placement to rehab or SNF Current Inpatient Medications: Current Inpatient Medications Medications (Trade) Dose Ordered Sig/Gin Route Start Time Stop Time Status Last Admin Dose Admin Acetaminophen (Tylenol Tab) 650 mg Q4H PRN PO 08/07/17 15:00 09/06/17 14:59 Ondansetron HCl (Zofran Inj) 4 mg Q6H PRN IV 08/07/17 15:00 09/06/17 14:59 Multivitamins (Multivitamin Tab) 1 tab QAM PO 08/08/17 08:00 09/07/17 08:59 08/08/17 08:39 1 TAB Pramipexole Dihydrochloride (miraPEX TAB) 0.5 mg HS PO 08/07/17 21:00 09/06/17 20:59 08/07/17 21:37 0.5 MG Calcium/Vitamin D (Caltrate Plus Tab) 1 tab QAM PO 08/08/17 08:00 09/07/17 08:59 08/08/17 08:39 1 TAB Cholecalciferol (Vitamin D Tab) 400 inter.unit QAM PO 08/08/17 08:00 09/07/17 08:59 08/08/17 08:38 400 INTER.UNIT Ceftriaxone Sodium 1 gm/ Dextrose 50 ml @ 100 mls/hr Q24H IV 08/07/17 17:00 08/17/17 16:59 08/07/17 17:09 100 MLS/HR Enteral Nutritional Formula (Boost) 1 can BIDM PO 08/08/17 08:00 09/07/17 07:59 08/08/17 08:38 1 CAN Tramadol HCl (Ultram Tab) 50 mg Q4H PRN PO 08/07/17 17:15 09/06/17 17:14
[2017-08-08] MEDS: CEFTRIAXONE SOD INJ 1 GM in DEXTROSE 5% ADD-VANTAGE 50ML 50 ML IV SCH (16:24)
[2017-08-08] MEDS: PRAMIPEXOLE DIHYDROCHLORIDE 0.5 MG TAB PO SCH (21:41)
[2017-08-09 07:55] VITALS: BP 120/70; PULSE 100; TEMP 36.6; O2SAT 97
[2017-08-09] MEDS: CALCIUM 600MG + VIT D 400 IU TAB PO SCH (08:27)
[2017-08-09 08:28] VITALS: O2SAT 97
[2017-08-09] MEDS: MULTIVITAMIN TAB PO SCH (08:28)
[2017-08-09] MEDS: BOOST VANILLA PO SCH ×2 (08:29→17:45)
[2017-08-09] MEDS: CHOLECALCIFEROL 400 INTER.UNIT TAB PO SCH (08:29)
--- NOTE | 2017-08-09 12:41 | Progress Note ---
Medicine Progress Note Date & Time of Visit: Aug 09, 2017 at 12:23. Subjective Pt was seen and examined Lying in bed with no distress Pt said that she is having some tenderness around her right pelvis area She said it seems the pain is due to her recent fall She said that she is getting stronger She continues refusing to go to rehab Denies any chest pain, palpitation, dizziness and SOB Objective Last 8 Hrs Date Time Temp Pulse Resp B/P (MAP) Pulse Ox O2 Delivery O2 Flow Rate FiO2 08/09/17 08:40 Room Air 08/09/17 08:28 97 Room Air 08/09/17 07:55 36.6 100 13 120/70 (87) 97 Room Air Physical Exam: General- No acute distress Head- atraumatic Eyes- PERRL, EOMI ENT- oropharynx clear Neck- supple, no JVD Lungs- No wheezing Heart- tachycardia Abdomen- normal bowel sounds, soft Extremities- no calf tenderness, right forearm wrap Neuro- alert, oriented, PERRL, EOMI; no facial palsy, able to move all 4 extremities Skin- warm & dry Assessment & Plan S/P Fall mechanical due to mechanical fall CK level wnl PT/OT fall precaution Recommend inpatient rehab Pt refused to go anywhere. She wants to go back to her apartment Right sided Pelvis Pain Mostly due to the Fall Will get pelvis xray Acute Kidney Injury Creatine on admission 1.25 Received IVF creatine 0.85 Resolved Urinary Tract Infection Complaint of dysuria UA positive for leuks and +3 bacteria Continue Rocephin Preliminary urine cx grew alpha strep not enterococcus Restless Leg Syndrome continue home medications HTN BP stable Will resume propranolol DVT ppx SCDs (due to recent admission for anemia) CODE STATUS DNR DISPOSITION May need placement to rehab or SNF Waiting for placement to rehab Current Inpatient Medications: Current Inpatient Medications Medications (Trade) Dose Ordered Sig/Gin Route Start Time Stop Time Status Last Admin Dose Admin Acetaminophen (Tylenol Tab) 650 mg Q4H PRN PO 08/07/17 15:00 09/06/17 14:59 Ondansetron HCl (Zofran Inj) 4 mg Q6H PRN IV 08/07/17 15:00 09/06/17 14:59 Multivitamins (Multivitamin Tab) 1 tab QAM PO 08/08/17 08:00 09/07/17 08:59 08/09/17 08:28 1 TAB Pramipexole Dihydrochloride (miraPEX TAB) 0.5 mg HS PO 08/07/17 21:00 09/06/17 20:59 08/08/17 21:41 0.5 MG Calcium/Vitamin D (Caltrate Plus Tab) 1 tab QAM PO 08/08/17 08:00 09/07/17 08:59 08/09/17 08:27 1 TAB Cholecalciferol (Vitamin D Tab) 400 inter.unit QAM PO 08/08/17 08:00 09/07/17 08:59 08/09/17 08:29 400 INTER.UNIT Ceftriaxone Sodium 1 gm/ Dextrose 50 ml @ 100 mls/hr Q24H IV 08/07/17 17:00 08/17/17 16:59 08/08/17 16:24 100 MLS/HR Enteral Nutritional Formula (Boost) 1 can BIDM PO 08/08/17 08:00 09/07/17 07:59 08/09/17 08:29 1 CAN Tramadol HCl (Ultram Tab) 50 mg Q4H PRN PO 08/07/17 17:15 09/06/17 17:14
--- NOTE | 2017-08-09 13:18 | DIAGNOSTIC IMAGING REPORT ---
PELVIS 1 OR 2 VIEW ROUTINE CLINICAL HISTORY: 87 years-old Female presenting with right sided pelvis pain. TECHNIQUE: Single frontal view of the pelvis was obtained. COMPARISON: CT from 05/19/2017 and pelvic radiograph from 08/28/2013. FINDINGS: Total right hip arthroplasty unchanged from prior. Minimal lucency along the superior acetabulum. No periprosthetic fracture. No malalignment. Osteopenia suspected. Bony pelvis intact. Sacral iliac joints and pubic symphysis congruent. Left hip joint congruent. No evidence of an acute osseous injury of the pelvis or left hip. Cholelithiasis likely present. IMPRESSION: 1. No acute osseous injury. 2. Osteopenia suspected. 3. Postsurgical changes of total right hip arthroplasty. Lucency along the superior acetabulum could be within the range of normal or indicate developing osteolysis, which is nonspecific for the etiology. Electronically signed by: Mckinley Kelly M.D. 08/09/2017 1:16 PM Dictated Date/Time: 08/09/2017 1:14 PM
--- NOTE | 2017-08-09 14:00 | Clinical Documentation Query ---
CLINICAL DOCUMENTATION QUERY Dr. ALFONSO, In your clinical opinion does this patient have: ( ) Chronic kidney disease, stage 3 ( ) Not Agree ( ) Other explanation of clinical findings (Please Explain) ( ) Unable to determine (Please Define) ( ) Need to Discuss The medical record reflects the following clinical findings, treatment, and risk factors. Clinical Indicators: 87 yo female presenting after a fall at home. Noted to have TANISHA at time of presentation. Review of historical GFR showed range of 54.5-75.1 over the past 2 years Treatment: monitor PRP's, treat comorbid conditions Risk Factors: age, HTN Please clarify and document your clinical opinion in the progress notes and discharge summary. Terms such as "probable", "suspected", "likely", "questionable", "possible", or "still to be ruled out" are acceptable. IF IN AGREEMENT, YOU MUST DOCUMENT ABOVE DIAGNOSTIC STATEMENT IN DAILY PROGRESS NOTES AND DISCHARGE SUMMARY. This document is not part of the patient's record. Thank You, Shereen Pate RN [phone]
[2017-08-09 15:50] VITALS: O2SAT 96
[2017-08-09 15:59] VITALS: BP 131/84; PULSE 109; TEMP 36.8; O2SAT 96
[2017-08-09] MEDS: CEFTRIAXONE SOD INJ 1 GM in DEXTROSE 5% ADD-VANTAGE 50ML 50 ML IV SCH (17:40)
[2017-08-09] MEDS: PRAMIPEXOLE DIHYDROCHLORIDE 0.5 MG TAB PO SCH (21:46)
[2017-08-09 23:49] VITALS: BP 142/74; PULSE 116; TEMP 36.7; O2SAT 97
[2017-08-10] MEDS: MULTIVITAMIN TAB PO SCH (07:38)
[2017-08-10] MEDS: CALCIUM 600MG + VIT D 400 IU TAB PO SCH (07:38)
[2017-08-10] MEDS: BOOST VANILLA PO SCH (07:38)
[2017-08-10] MEDS: CHOLECALCIFEROL 400 INTER.UNIT TAB PO SCH (07:38)
[2017-08-10 08:19] VITALS: BP 121/78; PULSE 106; TEMP 36.8; O2SAT 94
--- NOTE | 2017-08-10 09:18 | Clinical Documentation Query ---
CLINICAL DOCUMENTATION QUERY Dr. GONZALEZ, In your clinical opinion does this patient have: (x ) Chronic kidney disease, stage 3 ( ) Not Agree ( ) Other explanation of clinical findings (Please Explain) ( ) Unable to determine (Please Define) ( ) Need to Discuss The medical record reflects the following clinical findings, treatment, and risk factors. Clinical Indicators: 87 yo female presenting after a fall at home. Noted to have TANISHA at time of presentation. Review of historical GFR showed range of 54.5-75.1 over the past 2 years Treatment: monitor PRP's, treat comorbid conditions Risk Factors: age, HTN Please clarify and document your clinical opinion in the progress notes and discharge summary. Terms such as "probable", "suspected", "likely", "questionable", "possible", or "still to be ruled out" are acceptable. IF IN AGREEMENT, YOU MUST DOCUMENT ABOVE DIAGNOSTIC STATEMENT IN DAILY PROGRESS NOTES AND DISCHARGE SUMMARY. This document is not part of the patient's record. Thank You, Shereen Pate RN [phone]
[2017-08-10] MEDS ORDERED: NURSING VERBAL MED ORDER ONE (10:45)
--- NOTE | 2017-08-10 13:10 | Progress Note ---
Internal Med Progress Note Date of Service: Aug 10, 2017. Provider Documentation: SUBJECTIVE: Patient is in no acute distress. Denies chest pain or palpations OBJECTIVE: Vital Signs-as noted below General- No acute distress Head- atraumatic Eyes- EOMI ENT- oropharynx clear Neck- supple, no JVD Lungs- No wheezing, CTABL Heart- mild tachycardia Abdomen- normal bowel sounds, soft Extremities- no calf tenderness Neuro- alert, oriented Skin- warm & dry ASSESSMENT & PLAN: Patient was hospitalized after mechanical fall. Patient was assessed by physical and occupational therapy but patient did not want to go to physical therapy rehabilitation after hospital discharge. Patient is to be discharged to home with home health services. After the mechanical fall, patient had right sided pelvis pain but no fractures as reported on pelvic X ray "Total right hip arthroplasty unchanged from prior. Minimal lucency along the superior acetabulum. No periprosthetic fracture. No malalignment. Osteopenia suspected. Bony pelvis intact. Sacral iliac joints and pubic symphysis congruent. Left hip joint congruent. No evidence of an acute osseous injury of the pelvis or left hip. Cholelithiasis likely present" Patient also had complaint of dysuria and received ceftriaxone in the hospital. However, urine culture grew alpha strep which is likely a contaminant. At this time, antibiotics can be held until further evaluation by primary care doctor. Patient has history of CKD stage 3 however, patient's acute kidney injury resolved with IV fluids. Patient also had tachycardia during hospital stay but this could be from hip pain and also because her home dose propranolol medication was initially held. Patient is to be discharged with home services and follow up with primary care doctor for the above medical issues. 08/11/2017 1:00 PM Maritza Osuna, DO Internal Medicine [facility] Re-scheduling of primary care appointment can be made with [phone] [facility] appointment line Vital Signs: Date Time Temp Pulse Resp B/P (MAP) Pulse Ox O2 Delivery O2 Flow Rate FiO2 08/10/17 08:19 36.8 106 18 121/78 (92) 94 Room Air 08/10/17 08:00 Room Air 08/10/17 01:50 Room Air 08/09/17 23:49 36.7 116 18 142/74 (96) 97 Room Air 08/09/17 15:59 36.8 109 16 131/84 (100) 96 08/09/17 15:50 96 Room Air
--- NOTE | 2017-08-10 13:33 | Discharge Instructions ---
Discharge Instructions Date of Service Aug 10, 2017. Admission Reason for Admission: FALL Discharge Discharge Diagnosis / Problem: mechanical fall, ckd stage 3 with acute kidey injury, tachycardia Discharge Goals Goal(s): Improve function Activity Recommendations Activity Limitations: per Instructions/Follow-up section . Instructions / Follow-Up Instructions / Follow-Up Patient was hospitalized after mechanical fall. Patient was assessed by physical and occupational therapy but patient did not want to go to physical therapy rehabilitation after hospital discharge. Patient is to be discharged to home with home health services. After the mechanical fall, patient had right sided pelvis pain but no fractures as reported on pelvic X ray "Total right hip arthroplasty unchanged from prior. Minimal lucency along the superior acetabulum. No periprosthetic fracture. No malalignment. Osteopenia suspected. Bony pelvis intact. Sacral iliac joints and pubic symphysis congruent. Left hip joint congruent. No evidence of an acute osseous injury of the pelvis or left hip. Cholelithiasis likely present" Patient also had complaint of dysuria and received ceftriaxone in the hospital. However, urine culture grew alpha strep which is likely a contaminant. At this time, antibiotics can be held until further evaluation by primary care doctor. Patient has history of CKD stage 3 however, patient's acute kidney injury resolved with IV fluids. Patient also had tachycardia during hospital stay but this could be from hip pain and also because her home dose propranolol medication was initially held. Patient is to be discharged with home services and follow up with primary care doctor for the above medical issues. 08/11/2017 1:00 PM Maritza Osuna, DO Internal Medicine [facility] Re-scheduling of primary care appointment can be made with [phone] [facility] clinic appointment line Current Hospital Diet Patient's current hospital diet: Regular Diet Discharge Diet Recommended Diet: Regular Diet Pending Studies Studies pending at discharge: no Laboratory Results 08/08/17 07:26 08/08/17 07:26 Test 08/07/17 12:44 08/07/17 13:40 08/07/17 13:48 08/08/17 07:26 Urine Color DK YELLOW Urine Appearance TURBID (CLEAR) Urine pH 5.5 (4.5-7.5) Urine Specific Vista 1.023 (1.000-1.030) Urine Protein TRACE (NEG) Urine Glucose (UA) NEG (NEG) Urine Ketones TRACE (NEG) Urine Occult Blood NEG (NEG) Urine Nitrite NEG (NEG) Urine Bilirubin NEG (NEG) Urine Urobilinogen NEG (NEG) Urine Leukocyte Esterase LARGE (NEG) Urine WBC (Auto) >30 /hpf (0-5) Urine RBC (Auto) 0-4 /hpf (0-4) Urine Hyaline Casts (Auto) 1-5 /lpf (0-5) Urine Epithelial Cells (Auto) 5-10 /lpf (0-5) Urine Bacteria (Auto) 3+ (NEG) Urine Yeast (Auto) (NONE PRSENT) Immature Granulocyte % (Auto) 0.9 % White Blood Count 4.53 K/uL (4.8-10.8) Red Blood Count 3.35 M/uL (4.2-5.4) 2.94 M/uL (4.2-5.4) Hemoglobin 9.7 g/dL (12.0-16.0) Hematocrit 29.1 % (37-47) Mean Corpuscular Volume 86.9 fL (80-100) 87.4 fL (80-100) Mean Corpuscular Hemoglobin 29.0 pg (25-34) 28.2 pg (25-34) Mean Corpuscular Hemoglobin Concent 33.3 g/dl (32-36) 32.3 g/dl (32-36) Platelet Count 450 K/uL (130-400) Mean Platelet Volume 9.9 fL (7.4-10.4) 9.5 fL (7.4-10.4) Neutrophils (%) (Auto) 75.1 % Lymphocytes (%) (Auto) 18.1 % Monocytes (%) (Auto) 3.3 % Eosinophils (%) (Auto) 2.2 % Basophils (%) (Auto) 0.4 % Neutrophils # (Auto) 3.40 K/uL (1.4-6.5) Lymphocytes # (Auto) 0.82 K/uL (1.2-3.4) Monocytes # (Auto) 0.15 K/uL (0.11-0.59) Eosinophils # (Auto) 0.10 K/uL (0-0.5) Basophils # (Auto) 0.02 K/uL (0-0.2) Immature Granulocyte # (Auto) 0.04 K/uL (0.00-0.02) Giant Platelets 1+ Acanthocytes 1+ Schistocytes 1+ Total Bilirubin 0.7 mg/dl (0.2-1) Direct Bilirubin 0.2 mg/dl (0-0.2) Aspartate Amino Transf (AST/SGOT) 18 U/L (15-37) Alanine Aminotransferase (ALT/SGPT) 15 U/L (12-78) Alkaline Phosphatase 69 U/L (45-117) Creatine Kinase MB 2.4 ng/ml (0.5-3.6) Creatine Kinase MB Ratio 4.1 (0-3.0) Total Protein 7.2 gm/dl (6.4-8.2) Albumin 3.1 gm/dl (3.4-5.0) Lipase 92 U/L (73-393) Bedside Troponin I 0.030 ng/ml (0-0.045) RDW Standard Deviation 69.5 fL (36.4-46.3) RDW Coefficient of Variation 22.0 % (11.5-14.5) Anion Gap 6.0 mmol/L (3-11) Est Creatinine Clear Calc Drug Dose 36.9 ml/min Estimated GFR () 71.4 Estimated GFR (Non- 61.6 BUN/Creatinine Ratio 15.4 (10-20) Calcium Level 8.9 mg/dl (8.5-10.1) Phosphorus Level 2.5 mg/dl (2.5-4.9) Magnesium Level 2.0 mg/dl (1.8-2.4) Total Creatine Kinase 24 U/L (26-192) Date/Time Source Procedure Growth Status 08/07/17 12:44 Urine,Catheterized Urine Culture - Final Alpha Strep. Not Enterococcus Complete Medical Emergencies . Who to Call and When: Medical Emergencies: If at any time you feel your situation is an emergency, please call 911 immediately. . Non-Emergent Contact Non-Emergency issues call your: Primary Care Provider Call Non-Emergent contact if: you have any medication questions . . "Provider Documentation" section prepared by Benedict Nair. . VTE Core Measure Inpt VTE Proph given/why not?: SCD's
[2017-08-10 13:41] VITALS: BP 121/78; PULSE 106; TEMP 36.8; O2SAT 94
--- NOTE | 2017-08-10 13:56 | Discharge Summary ---
Discharge Summary Date of Service Aug 10, 2017. Discharge Summary Admission Date: Aug 08, 2017 at 17:59 Discharge Date: Aug 10, 2017 Discharge Disposition: Home with services Principal Diagnosis: mechanical fall, hip pain, tachycardia, acute kidney injury Medication Reconciliation Continued Medications: Calcium Carbonate-Vitamin D (Calcium 600 + D) 1 Tab Tab 1 TAB PO QAM Cholecalciferol (Vitamin D3 400) 400 Unit Cap 400 UNITS PO QAM Multiple Vitamin (Multivitamin) 1 Tab Tab 1 TAB PO QAM Pramipexole Dihydrochloride (Pramipexole Dihydrochlori) 0.5 Mg Tab 0.5 MG PO HS Propranolol Hcl (Propranolol Hcl Er) 120 Mg Cap 120 MG PO QAM Admission Information HPI (per Admitting provider): This is an 87 year old female with a PMH of dementia, restless leg syndrome, HTN , anemia, previous history of provoked DVT, no longer on anticoagulation; a fall in May 2017 with fractured ribs and pneumothorax. Recent admission at [facility] on 08/03 for anemia and UTI. Was discharged on 08/06 to home with home health. As per son, she was doing well at home, watching TV. He left her apartment around 10PM and states he found her this morning around 10AM. As per patient, she states she was getting back in her bed to go to sleep; she fell when she missed her bed when trying to lay down. She states she does not remember if she clicked her Life Alert. She tried to drag herself to the living room, and that's when the son found her. She presented here, found to have an 8cm laceration on her R triceps. This was repaired by the ER staff. Imaging does not suggest any acute fractures. Currently patient is pain free. History from the patient was limited due to underlying dementia. Geriatric Assessment * Patient lives alone. * Ambulates at baseline with walker. * Uses depends, but performs her own toileting. * Upper and lower dentures, glasses, does not use hearing aids. * Patient's son offers support almost daily. * Patient's son makes sure she has food twice daily. Patient refused meals on wheels. * Underlying dementia. * Mood is stable. * Performs most of her own ADLs at baseline. Physical Exam (per Admitting): General Appearance: WD/WN, no apparent distress, + thin Head: normocephalic, atraumatic Eyes: normal inspection ENT: + pertinent finding (hard of hearing) Respiratory/Chest: chest non-tender, lungs clear, normal breath sounds, no respiratory distress, no accessory muscle use Cardiovascular: regular rate, rhythm, no edema, no JVD, no murmur, normal peripheral pulses Abdomen/GI: normal bowel sounds, non tender, soft Extremities/Musculoskelatal: normal capillary refill, no pedal edema, + pertinent finding (+R arm is bandaged/wrapped; L shoulder with some bruising) Neurologic/Psych: alert, normal mood/affect, + disoriented, + pertinent finding (underlying dementia) Skin: normal color Lymphatic: no adenopathy Hospital Course Patient was hospitalized after mechanical fall. Patient was assessed by physical and occupational therapy but patient did not want to go to physical therapy rehabilitation after hospital discharge. Patient is to be discharged to home with home health services. After the mechanical fall, patient had right sided pelvis pain but no fractures as reported on pelvic X ray "Total right hip arthroplasty unchanged from prior. Minimal lucency along the superior acetabulum. No periprosthetic fracture. No malalignment. Osteopenia suspected. Bony pelvis intact. Sacral iliac joints and pubic symphysis congruent. Left hip joint congruent. No evidence of an acute osseous injury of the pelvis or left hip. Cholelithiasis likely present" Patient also had complaint of dysuria and received ceftriaxone in the hospital. However, urine culture grew alpha strep which is likely a contaminant. At this time, antibiotics can be held until further evaluation by primary care doctor. Patient has history of CKD stage 3 however, patient's acute kidney injury resolved with IV fluids. Patient also had tachycardia during hospital stay but this could be from hip pain and also because her home dose propranolol medication was initially held. Patient is to be discharged with home services and follow up with primary care doctor for the above medical issues. 08/11/2017 1:00 PM Maritza Osuna, Internal Medicine [facility] Re-scheduling of primary care appointment can be made with [phone] [facility] appointment line Total time spent on discharge = 60 minutes This includes examination of the patient, discharge planning, medication reconciliation, and communication with other providers. Discharge Instructions see above
[2017-08-11] MEDS ORDERED: PROPRANOLOL HCL 60 MG LA CAP PO SCH (08:00)
[2017-08-11] MEDS ORDERED: ULT/50 PO (18:49)
--- NOTE | 2017-08-12 11:23 | EDITING REQUIRED CODING QUERY ---
CODING QUERY To promote full compliance with coding requirements relating to patient care, provider participation is requested in all cases of boiler water tester uncertainty. Please assist us with the question(s) below: Coding Question(s): Please clarify below, in your clinical opinion, regarding the UTI. ( ) Possible UTI was treated/evaluated during this admission (x ) No possible UTI - this is ruled out Physician's Response(s): Thank you Payton Bowden Principal Diagnosis: "_that condition established after study, to be chiefly responsible for occasioning the admission of the patient to the hospital for care." Co-Existing Principal Diagnosis: "_when two or more diagnoses equally meet the criteria for principal diagnosis as determined by the circumstances of admission, diagnostic work up, and/or therapy provided, and the Alphabetic Index, Tabular List, or another coding guideline does not provide sequencing direction, any one of the diagnoses may be sequenced first." "When the physician has documented what appears to be a current diagnosis in the body of the record, but has not included the diagnosis in the final diagnostic statement, the physician should be asked whether the diagnosis should be added." (Source Coding Clinic 2 QTR90. p3-4)
== END 2017-08-10 14:30 | disposition home health service (06) | DRG 684 ==
LOC: EDBD 12:17 → C.EDB 12:22 → C.MS4W 14:57 → ENRESERV 15:21 → OBSVTOIN 08-08 17:59
PROVIDERS: ADMIT Family Medicine; ATTEND Hospitalist
PROC: 0HQBXZZ Repair Right Upper Arm Skin, External Approach (ICD-10-PCS; principal; 2017-08-07)
DX: N17.9 Acute kidney failure, unspecified (principal); S41.111A Laceration without foreign body of right upper arm, initial encounter; S40.212A Abrasion of left shoulder, initial encounter; E86.0 Dehydration; R10.2 Pelvic and perineal pain; M25.551 Pain in right hip; R30.0 Dysuria; R00.0 Tachycardia, unspecified; F03.90 Unspecified dementia, unspecified severity, without behavioral disturbance, psychotic disturbance, mood disturbance, and anxiety; D64.9 Anemia, unspecified; I12.9 Hypertensive chronic kidney disease with stage 1 through stage 4 chronic kidney disease, or unspecified chronic kidney disease; N18.3 Chronic kidney disease, stage 3 (moderate); G25.81 Restless legs syndrome; G43.909 Migraine, unspecified, not intractable, without status migrainosus; Z79.899 Other long term (current) drug therapy; Z66 Do not resuscitate; Z91.81 History of falling; Z96.641 Presence of right artificial hip joint; Z86.73 Personal history of transient ischemic attack (TIA), and cerebral infarction without residual deficits; Z86.718 Personal history of other venous thrombosis and embolism; Z85.41 Personal history of malignant neoplasm of cervix uteri; Z87.891 Personal history of nicotine dependence; Z82.49 Family history of ischemic heart disease and other diseases of the circulatory system; Z80.1 Family history of malignant neoplasm of trachea, bronchus and lung; W18.39XA Other fall on same level, initial encounter; Y92.003 Bedroom of unspecified non-institutional (private) residence as the place of occurrence of the external cause; Y99.8 Other external cause status

== ENCOUNTER 2017-08-11 18:08 | Observation (INO) | payer OTHER ==
[~2017-08-11] VITALS: Ht 157.5 cm; Wt 72.0 kg
[~2017-08-11 18:08] MED LIST changes: -DOCU100C31 PO; -HYDR25TA4 PO; -NRN100 PO; -POLY335019 PO; -SULF800T23 PO; -TRAM-10 PO
[2017-08-11] MEDS ORDERED: SODIUM CHLORIDE 0.9% 1000ML 500 ML IV STA (18:33)
--- NOTE | 2017-08-11 18:40 | EMERGENCY ROOM VISIT NOTE ---
History Report prepared by Wil: Rick Rodriguez Under the Supervision of: Dr. Jenaro Odonnell M.D. First contact with patient: 18:18 Chief Complaint: MENTAL HEALTH EVALUATION Stated Complaint: MHID History of Present Illness The patient is an 87 year old female who presents to the Emergency Room with concerns over her mental status which is worsening per her son and the office of aging. Per hospital nursing staff the patient lives alone and has been hallucinating according to the office of aging. Her son and the office of aging staff were at her apartment today and she was telling them that she put pizza in the oven and it was burning. When they checked the oven there was nothing there. She states that she did put a piece of pizza in the oven on a paper plate and realized what she had done and removed the paper plate immediately before causing an accident. The patient does have a laceration to the back of the right arm which occurred after a falling episode 5 days ago. This laceration was repaired in the Emergency Department. The son is concerned for the patient's ability to live on her own. The patient herself has no current complaints. Review of the old records shows that she was just discharged from this hospital yesterday after a fall. She has been home for 24 hours. This is her third visit to the ER/Hospital in just 1 week. Source of History: patient, family, penitentiary notes, nursing staff Onset: Today Position: other (Mental status) Quality: other (Mental Status) Timing: worsening Review of Systems See HPI for pertinent positives & negatives. A total of 10 systems reviewed and were otherwise negative. Past Medical & Surgical Medical Problems: (1) Cerebrovascular disease (2) Cholelithiasis (3) CVA (cerebral infarction) (4) Diverticular disease of colon (5) Diverticulitis (6) Dyslipidemia (7) Hip fracture (8) History of cervical cancer (9) History of Clostridium difficile infection (10) History of DVT (deep vein thrombosis) (11) Hypertension (12) Migraine Surgical Problems: (1) S/P knee replacement (2) Status post appendectomy (3) Status post cardiac catheterization (4) Status post hysterectomy Family History Hypertension MOTHER Lung cancer BROTHER Social History Smoking Status: Unknown if Ever Smoked Drug Use: none Housing Status: lives alone Occupation Status: unemployed Current/Historical Medications Scheduled Calcium Carbonate-Vitamin D (Calcium 600 + D), 1 TAB PO QAM Cholecalciferol (Vitamin D3 400), 400 UNITS PO QAM Multiple Vitamin (Multivitamin), 1 TAB PO QAM Pramipexole Dihydrochloride (Pramipexole Dihydrochlori), 0.5 MG PO HS Propranolol Hcl (Propranolol Hcl Er), 120 MG PO QAM Tramadol Hcl (Ultram), 50 MG PO QID Allergies Coded Allergies: No Known Allergies (Unverified , 08/11/17) Physical Exam Vital Signs Date Time Temp Pulse Resp B/P (MAP) Pulse Ox O2 Delivery O2 Flow Rate FiO2 08/11/17 19:46 65 16 142/73 95 Room Air 08/11/17 18:10 37.0 85 16 127/68 95 Room Air Physical Exam GENERAL: Patient is in no acute distress. HEENT: No acute trauma, normocephalic atraumatic, mucous membranes DRY, no nasal congestion, no scleral icterus. NECK: No stridor, no adenopathy, no meningismus, trachea is midline. LUNGS: Clear to auscultation bilaterally, no wheeze, no rhonchi, breath sounds equal. HEART: Without murmurs gallops or rubs, regular rate and rhythm. ABDOMEN: Soft, nontender, bowel sounds positive, no hernias, no peritonitis. EXTREMITIES: There is no edema or cellulitis. There is a suture laceration to the posterior right arm in the area of the tricep. There is no area of infection surrounding the contusion noted. NEUROLOGIC: The patient is awake and alert. There are no focal motor deficits. There is no speech slur, she is somewhat confused, likely consistent with dementia. She did not know the president or the year, but she did know the month. She knew she was in the hospital and knew it was the 7th. SKIN: No rash, no jaundice, no diaphoresis. Medical Decision & Procedures ER Provider Diagnostic Interpretation: Radiology results as stated below per my review and radiologist interpretation: CHEST ONE VIEW PORTABLE HISTORY: EVALUATE ALTERED MENTAL STATUS/WEAKNESS COMPARISON: Chest 08/07/2017. FINDINGS: No focal lung consolidations to suggest pneumonia. No evidence for pulmonary edema. Old, healed left-sided rib fractures. Postoperative changes within the left humerus. Emphysema. The heart is normal in size. IMPRESSION: No significant change compared to the prior study. No acute process. Electronically signed by: Antony Falcon M.D. 08/11/2017 7:30 PM Dictated Date/Time: 08/11/2017 7:[address] CT DOSE: 537.48 mGy.cm HISTORY: EVALUATE ALTERED MENTAL STATUS/WEAKNESS TECHNIQUE: Multiaxial CT images of the head were performed without the use of intravenous contrast. Automated exposure control was utilized for this study. A dose lowering technique was utilized adhering to the principles of ALARA. Comparison: Head CT 08/03/2017. Findings: The paranasal sinuses and mastoid air cells are clear. The calvarium and skull base are intact. There is no mass, hematoma, midline shift, acute infarct. White matter hypodensity is nonspecific but suggestive of microvascular ischemic change. The ventricles and sulci demonstrate mild age-related involutional changes. Impression: No acute intracranial abnormality. Atrophy and microvascular ischemic changes. Electronically signed by: Antony Falcon M.D. 08/11/2017 7:19 PM Dictated Date/Time: 08/11/2017 7:11 PM Laboratory Results 08/11/17 18:50 Red Blood Count 3.14, Mean Corpuscular Volume 88.2, Mean Corpuscular Hemoglobin 28.7, Mean Corpuscular Hemoglobin Concent 32.5, Mean Platelet Volume 10.6, Neutrophils (%) (Auto) 54.0, Lymphocytes (%) (Auto) 35.6, Monocytes (%) (Auto) 3.0, Eosinophils (%) (Auto) 5.3, Basophils (%) (Auto) 1.5, Neutrophils # (Auto) 2.53, Lymphocytes # (Auto) 1.67, Monocytes # (Auto) 0.14, Eosinophils # (Auto) 0.25, Basophils # (Auto) 0.07 08/11/17 18:50 Test 08/11/17 18:44 08/11/17 18:50 Urine Color DK YELLOW Urine Appearance CLOUDY (CLEAR) Urine pH 5.0 (4.5-7.5) Urine Specific [place] 1.018 (1.000-1.030) Urine Protein TRACE (NEG) Urine Glucose (UA) NEG (NEG) Urine Ketones TRACE (NEG) Urine Occult Blood NEG (NEG) Urine Nitrite NEG (NEG) Urine Bilirubin NEG (NEG) Urine Urobilinogen NEG (NEG) Urine Leukocyte Esterase LARGE (NEG) Urine WBC (Auto) >30 /hpf (0-5) Urine RBC (Auto) 5-10 /hpf (0-4) Urine Hyaline Casts (Auto) 10-30 /lpf (0-5) Urine Epithelial Cells (Auto) >30 /lpf (0-5) Urine Bacteria (Auto) NEG (NEG) Urine Crystals CALCIUM OXALATE (NONE Urine Pathogenic Casts /lpf (0) Urine Mucus PRESENT (NONE PRSENT) Urine Yeast (Auto) PRESENT (NONE PRSENT) Urine Opiates Screen NEG (NEG) Urine Methadone, Qualitative NEG (NEG) Urine Barbiturates NEG (NEG) Urine Phencyclidine (PCP) Level NEG (NEG) Ur Amphetamine/Methamphetamine NEG (NEG) MDMA (Ecstasy) Screen NEG (NEG) Urine Benzodiazepines Screen NEG (NEG) Urine Cocaine Metabolite NEG (NEG) Urine Marijuana (THC) NEG (NEG) White Blood Count 4.19 K/uL (4.8-10.8) Red Blood Count 3.14 M/uL (4.2-5.4) Hemoglobin 9.0 g/dL (12.0-16.0) Hematocrit 27.7 % (37-47) Mean Corpuscular Volume 88.2 fL (80-100) Mean Corpuscular Hemoglobin 28.7 pg (25-34) Mean Corpuscular Hemoglobin Concent 32.5 g/dl (32-36) Platelet Count 380 K/uL (130-400) Mean Platelet Volume 10.6 fL (7.4-10.4) Neutrophils (%) (Auto) 54.0 % Lymphocytes (%) (Auto) 35.6 % Monocytes (%) (Auto) 3.0 % Eosinophils (%) (Auto) 5.3 % Basophils (%) (Auto) 1.5 % Neutrophils # (Auto) 2.53 K/uL (1.4-6.5) Lymphocytes # (Auto) 1.67 K/uL (1.2-3.4) Monocytes # (Auto) 0.14 K/uL (0.11-0.59) Eosinophils # (Auto) 0.25 K/uL (0-0.5) Basophils # (Auto) 0.07 K/uL (0-0.2) RDW Standard Deviation 71.2 fL (36.4-46.3) RDW Coefficient of Variation 22.4 % (11.5-14.5) Immature Granulocyte % (Auto) 0.6 % Immature Granulocyte # (Auto) 0.03 K/uL (0.00-0.02) Large Platelets 2+ Polychromasia 1+ Poikilocytosis PRESENT Anisocytosis PRESENT Ovalocytes 1+ Echinocytes 1+ Anion Gap 8.0 mmol/L (3-11) Est Creatinine Clear Calc Drug Dose 44.4 ml/min Estimated GFR () 73.5 Estimated GFR (Non- 63.4 BUN/Creatinine Ratio 13.4 (10-20) Calcium Level 9.6 mg/dl (8.5-10.1) Total Bilirubin 0.6 mg/dl (0.2-1) Aspartate Amino Transf (AST/SGOT) 17 U/L (15-37) Alanine Aminotransferase (ALT/SGPT) 15 U/L (12-78) Alkaline Phosphatase 73 U/L (45-117) Total Creatine Kinase 40 U/L (26-192) Troponin I < 0.015 ng/ml (0-0.045) Total Protein 7.1 gm/dl (6.4-8.2) Albumin 3.0 gm/dl (3.4-5.0) Globulin 4.1 gm/dl (2.5-4.0) Albumin/Globulin Ratio 0.7 (0.9-2) Thyroid Stimulating Hormone (TSH) 2.150 uIu/ml (0.300-4.500) Laboratory results reviewed by me. Medications Administered Medications (Trade) Dose Ordered Sig/Gin Route Start Time Stop Time Status Last Admin Dose Admin Sodium Chloride 500 ml @ 999 mls/hr Q31M STAT IV 08/11/17 18:33 08/11/17 19:03 DC 08/11/17 18:33 999 MLS/HR ECG Indication: altered mental status Rate (beats per minute): 69 Rhythm: normal sinus Findings: other (No ST elevation, no PVCs) Change: Patient's electrocardiogram interpreted by me. ED Course 1818: The patient was evaluated in room A7. A complete history and physical exam was performed. 1825: Review of the patient's medical records show that she was discharged from the hospital yesterday. This is her third visit to the hospital in a week. 1832: Ordered Sodium Chloride 500 mL @ 999 mL/hr IV. 1921: I discussed the case with the department Case Manger at this time. She states that [facility] and the [facility] are working to place the patient there tomorrow. They cannot place her until the proper legal action is completed. 1941: I discussed the case with Mimi TERRY. She will evaluate the patient for further treatment until she can be placed in [facility] tomorrow. Medical Decision Differential Diagnosis includes; Dementia, psychosis, intracranial bleeding, dehydration, electrolyte imbalanced , medication reaction, urinary tract infection. There is no leukocytosis. The patient is anemic but this is baseline looking back at previous values. No significant electrolyte abnormality, kidney failure or hepatitis. The patient appears to be in a euthyroid state. Urinalysis shows what seems to be contamination, urine culture is pending. Chest film does not show pneumonia or CHF. Brain CT shows no acute bleed or mass effect. EKG shows a normal sinus rhythm, no acute ischemia. Cardiac enzyme testing times one is not consistent with acute cardiac injury. Urine tox is negative. The patient received IV saline, she is resting comfortably. She is in no distress. The patient appears to be doing poorly at home by herself. I suspect she has some dementia and apparently is making some poor decisions in her household. Her family and the office of aging do not feel she is safe to be at home by herself. They have made arrangements for a care facility but that will not occur until tomorrow. The patient will require a stay in the hospital until tomorrow when she can be transferred. I did speak with the patient and case management. The on-call hospitalist was consulted. Medication Reconcilliation Current Medication List: was personally reviewed by me Blood Pressure Screening Patient's blood pressure: Elevated blood pressure Blood pressure disposition: Referred to PCP Referred to Hospitalist Consults Time Called: 1935 Consulting Physician: Mimi TERRY Returned Call: [phone] I discussed the case with Mimi TERRY. She will evaluate the patient for further treatment until she can be placed in [facility] tomorrow. Impression Primary Impression: Confusion Scribe Attestation The scribe's documentation has been prepared under my direction and personally reviewed by me in its entirety. I confirm that the note above accurately reflects all work, treatment, procedures, and medical decision making performed by me. Departure Information Dispostion Being Evaluated By Hospitalist Referrals Maritza Osuna D.O. (PCP) Patient Instructions My [facility]
[2017-08-11] MEDS ORDERED: ULT/50 PO (18:49)
[2017-08-11 19:02] LABS: BASO % 1.5 %; BASO ABS # 0.07 K/uL (0-0.2); EOS % 5.3 %; EOS ABS # 0.25 K/uL (0-0.5); HEMATOCRIT 27.7 % (37-47); IG# 0.03 K/uL (0.00-0.02); LYMPH % 35.6 %; LYMPH ABS # 1.67 K/uL (1.2-3.4); MEAN CELL VOLUME 88.2 fL (80-100); MEAN CORPUSCULAR HEMOGLOBIN 28.7 pg (25-34); MEAN CORPUSCULAR HGB CONC 32.5 g/dl (32-36); MONO ABS # 0.14 K/uL (0.11-0.59); NEUT ABS # 2.53 K/uL (1.4-6.5); RED CELL DISTRIBUTION WIDTH CV 22.4 % (11.5-14.5); RED CELL DISTRIBUTION WIDTH SD 71.2 fL (36.4-46.3)
--- NOTE | 2017-08-11 19:20 | DIAGNOSTIC IMAGING REPORT ---
HEAD CT NONCONTRAST CT DOSE: 537.48 mGy.cm HISTORY: EVALUATE ALTERED MENTAL STATUS/WEAKNESS TECHNIQUE: Multiaxial CT images of the head were performed without the use of intravenous contrast. Automated exposure control was utilized for this study. A dose lowering technique was utilized adhering to the principles of ALARA. Comparison: Head CT 08/03/2017. Findings: The paranasal sinuses and mastoid air cells are clear. The calvarium and skull base are intact. There is no mass, hematoma, midline shift, acute infarct. White matter hypodensity is nonspecific but suggestive of microvascular ischemic change. The ventricles and sulci demonstrate mild age-related involutional changes. Impression: No acute intracranial abnormality. Atrophy and microvascular ischemic changes. Electronically signed by: Antony Falcon M.D. 08/11/2017 7:19 PM Dictated Date/Time: 08/11/2017 7:11 PM
[2017-08-11 19:21] LABS: ALT/SGPT 15 U/L (12-78); AST/SGOT 17 U/L (15-37); BLOOD UREA NITROGEN 11 mg/dl (7-18); CALCIUM 9.6 mg/dl (8.5-10.1); CARBON DIOXIDE 24 mmol/L (21-32); CREATININE 0.83 mg/dl (0.60-1.20); GLUCOSE 101 mg/dl (70-99); POTASSIUM 3.7 mmol/L (3.5-5.1); SODIUM 133 mmol/L (136-145)
--- NOTE | 2017-08-11 19:31 | DIAGNOSTIC IMAGING REPORT ---
CHEST ONE VIEW PORTABLE HISTORY: EVALUATE ALTERED MENTAL STATUS/WEAKNESS COMPARISON: Chest 08/07/2017. FINDINGS: No focal lung consolidations to suggest pneumonia. No evidence for pulmonary edema. Old, healed left-sided rib fractures. Postoperative changes within the left humerus. Emphysema. The heart is normal in size. IMPRESSION: No significant change compared to the prior study. No acute process. Electronically signed by: Antony Falcon M.D. 08/11/2017 7:30 PM Dictated Date/Time: 08/11/2017 7:28 PM
[2017-08-11 19:32] LABS: ALKALINE PHOSPHATASE 73 U/L (45-117); TOTAL PROTEIN 7.1 gm/dl (6.4-8.2)
[2017-08-11] MEDS ORDERED: POLYETHYLENE (MIRALAX) 17 GM PACK PO PRN (20:30)
[2017-08-11] MEDS ORDERED: ACETAMINOPHEN 325 MG TAB PO PRN (20:30)
[2017-08-11 20:33] LABS: WHITE BLOOD COUNT 4.19 K/uL (4.8-10.8)
[2017-08-11 20:34] LABS: MEAN PLATELET VOLUME 10.6 fL (7.4-10.4); PLATELET COUNT 380 K/uL (130-400)
--- NOTE | 2017-08-11 20:49 | History and Physical ---
History & Physical Date & Time of Service: Aug 11, 2017 ~ 20:00 Chief Complaint: Dementia Primary Care Physician: Maritza Osuna D.O. History of Present Illness 87 year old female who was brought to the ED by request of her family due to concerns for her ability to take care of herself. Patient was recently admitted to [facility] 08/08-08/10 after suffering a fall at home. She was not found to have any acute fractures. Patient was discharged home with home services. Patient is currently without complaint. History is considered unreliable due to her dementia. Per ER documentation, son had reported that he found a paper plate in the oven with it turned on. Office of aging is currently involved regarding patient's placement. In the ED, patient's labs are unremarkable and vitals are stable. 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 (5) Diverticulitis Status: Resolved (6) Dyslipidemia Status: Chronic (7) Hip fracture Status: Resolved (8) History of cervical cancer Status: Chronic (9) History of Clostridium difficile infection Status: Chronic (10) History of DVT (deep vein thrombosis) Permanent Comment: 1999 associated with ankle fracture Status: Resolved (11) Hypertension Status: Chronic (12) Migraine Status: Chronic Surgical Problems: (1) S/P knee replacement Status: Chronic (2) Status post appendectomy Status: Chronic (3) Status post cardiac catheterization Permanent Comment: [facility] 2009 minimal nonocclusive disease Status: Chronic (4) Status post hysterectomy Permanent Comment: cervical Ca Status: Chronic Family History Hypertension MOTHER Lung cancer BROTHER Social History Smoking Status: Former Smoker Alcohol Use: socially Housing status: lives alone Immunizations History of Influenza Vaccine: Yes Influenza Vaccine Date: May 08, 2016 History of Pneumococcal: Yes Pneumococcal Date: Jul 27, 2014 Allergies Coded Allergies: No Known Allergies (Unverified , 08/11/17) Home Medications Scheduled Calcium Carbonate-Vitamin D (Calcium 600 + D), 1 TAB PO QAM Cholecalciferol (Vitamin D3 400), 400 UNITS PO QAM Multiple Vitamin (Multivitamin), 1 TAB PO QAM Pramipexole Dihydrochloride (Pramipexole Dihydrochlori), 0.5 MG PO HS Propranolol Hcl (Propranolol Hcl Er), 120 MG PO QAM Tramadol Hcl (Ultram), 50 MG PO QID Review of Systems unobtainable due to patient's mental status Physical Exam Vital Signs Date Time Temp Pulse Resp B/P (MAP) Pulse Ox O2 Delivery O2 Flow Rate FiO2 08/11/17 19:46 65 16 142/73 95 Room Air 08/11/17 18:10 37.0 85 16 127/68 95 Room Air General Appearance: WD/WN, no apparent distress Head: normocephalic, atraumatic Eyes: normal inspection, EOMI, sclerae normal ENT: hearing grossly normal, + pertinent finding (mucous membranes moist ) Neck: supple, no JVD, trachea midline Respiratory/Chest: lungs clear, normal breath sounds, no respiratory distress Cardiovascular: regular rate, rhythm, no edema, normal peripheral pulses Abdomen/GI: normal bowel sounds, non tender, soft, no organomegaly Extremities/Musculoskelatal: normal inspection, no calf tenderness, normal capillary refill Neurologic/Psych: no motor/sensory deficits, alert, + disoriented (to time and situation) Skin: normal color, warm/dry, + pertinent finding (laceration noted to right triceps area with sutures intact and surrounding bruising) Diagnostics Laboratory Results Results Past 24 Hours Test 08/11/17 18:44 08/11/17 18:50 Range/Units Urine Color DK YELLOW Urine Appearance CLOUDY CLEAR Urine pH 5.0 4.5-7.5 Urine Specific [place] 1.018 1.000-1.030 Urine Protein TRACE NEG Urine Glucose (UA) NEG NEG Urine Ketones TRACE NEG Urine Occult Blood NEG NEG Urine Nitrite NEG NEG Urine Bilirubin NEG NEG Urine Urobilinogen NEG NEG Urine Leukocyte Esterase LARGE NEG Urine WBC (Auto) >30 0-5 /hpf Urine RBC (Auto) 5-10 0-4 /hpf Urine Hyaline Casts (Auto) 10-30 0-5 /lpf Urine Epithelial Cells (Auto) >30 0-5 /lpf Urine Bacteria (Auto) NEG NEG Urine Crystals CALCIUM OXALATE NONE PRSENT Urine Pathogenic Casts 0 /lpf Urine Mucus PRESENT NONE PRSENT Urine Yeast (Auto) PRESENT NONE PRSENT Urine Opiates Screen NEG NEG Urine Methadone, Qualitative NEG NEG Urine Barbiturates NEG NEG Urine Phencyclidine (PCP) Level NEG NEG Ur Amphetamine/Methamphetamine NEG NEG MDMA (Ecstasy) Screen NEG NEG Urine Benzodiazepines Screen NEG NEG Urine Cocaine Metabolite NEG NEG Urine Marijuana (THC) NEG NEG White Blood Count 4.69 4.8-10.8 K/uL Red Blood Count 3.14 4.2-5.4 M/uL Hemoglobin 9.0 12.0-16.0 g/dL Hematocrit 27.7 37-47 % Mean Corpuscular Volume 88.2 80-100 fL Mean Corpuscular Hemoglobin 28.7 25-34 pg Mean Corpuscular Hemoglobin Concent 32.5 32-36 g/dl Platelet Count 402 130-400 K/uL Mean Platelet Volume 9.6 7.4-10.4 fL Neutrophils (%) (Auto) 54.0 % Lymphocytes (%) (Auto) 35.6 % Monocytes (%) (Auto) 3.0 % Eosinophils (%) (Auto) 5.3 % Basophils (%) (Auto) 1.5 % Neutrophils # (Auto) 2.53 1.4-6.5 K/uL Lymphocytes # (Auto) 1.67 1.2-3.4 K/uL Monocytes # (Auto) 0.14 0.11-0.59 K/uL Eosinophils # (Auto) 0.25 0-0.5 K/uL Basophils # (Auto) 0.07 0-0.2 K/uL RDW Standard Deviation 71.2 36.4-46.3 fL RDW Coefficient of Variation 22.4 11.5-14.5 % Immature Granulocyte % (Auto) 0.6 % Immature Granulocyte # (Auto) 0.03 0.00-0.02 K/uL Large Platelets 2+ Polychromasia 1+ Poikilocytosis PRESENT Anisocytosis PRESENT Ovalocytes 1+ Echinocytes 1+ Sodium Level 133 136-145 mmol/L Potassium Level 3.7 3.5-5.1 mmol/L Chloride Level 101 98-107 mmol/L Carbon Dioxide Level 24 21-32 mmol/L Anion Gap 8.0 3-11 mmol/L Blood Urea Nitrogen 11 7-18 mg/dl Creatinine 0.83 0.60-1.20 mg/dl Est Creatinine Clear Calc Drug Dose 44.4 ml/min Estimated GFR () 73.5 Estimated GFR (Non- 63.4 BUN/Creatinine Ratio 13.4 10-20 Random Glucose 101 70-99 mg/dl Calcium Level 9.6 8.5-10.1 mg/dl Total Bilirubin 0.6 0.2-1 mg/dl Aspartate Amino Transf (AST/SGOT) 17 15-37 U/L Alanine Aminotransferase (ALT/SGPT) 15 12-78 U/L Alkaline Phosphatase 73 45-117 U/L Total Creatine Kinase 40 26-192 U/L Troponin I < 0.015 0-0.045 ng/ml Total Protein 7.1 6.4-8.2 gm/dl Albumin 3.0 3.4-5.0 gm/dl Globulin 4.1 2.5-4.0 gm/dl Albumin/Globulin Ratio 0.7 0.9-2 Thyroid Stimulating Hormone (TSH) 2.150 0.300-4.500 uIu/ml Microbiology Results 08/11/17 Urine Culture, Received Pending Diagnostic Radiology Head CT Impression: No acute intracranial abnormality. Atrophy and microvascular ischemic changes CXR IMPRESSION: No significant change compared to the prior study. No acute process. Impression Assessment and Plan DEMENTIA - admit to med/surg - patient presenting due to ED by request of family due to inability to take care of herself at home - office of aging involved for court ordered placement to [facility] - no acute findings on work up in ED ANEMIA - chronic - likely anemia of chronic disease, iron studies completed on previous admission - no role for transfusion ABNORMAL U/A - likely contaminant - culture from recent admission grew alpha strep RIGHT UPPER ARM LACERATION - s/p sutures on 08/08 HTN - BP controlled, continue propranolol DVT PROPHYLAXIS - SQ Lovenox DISPO - The patient will be placed as observation status for now until further work up is complete. - Likely d/c to [facility] tomorrow under court order I have seen and evaluated the patient and agree with the assessment and plan as above. Wound is closed with sutures and although ecchymosis is present, it appears to be healing well. [place], Level of Care Med/Surg Resuscitation Status DO NOT RESUSCITATE (per recent admission) VTE Prophylaxis VTE Risk Assessment Done? Y/N: Yes Risk Level: Moderate
[2017-08-11] MEDS ORDERED: IV FLUIDS COMPLETED PRN (21:00)
[2017-08-11 21:25] VITALS: BP 112/76; PULSE 78; TEMP 36.5; O2SAT 95
[2017-08-11 22:15] VITALS: BP 112/76; PULSE 78; TEMP 36.5; O2SAT 95; Ht 157.5 cm; Wt 72.0 kg
[2017-08-11 23:58] VITALS: BP 122/70; PULSE 78; TEMP 36.7; O2SAT 93
[2017-08-12 07:41] VITALS: BP 122/76; PULSE 62; TEMP 36.6; O2SAT 90
[2017-08-12] MEDS ORDERED: ENOXAPARIN 40 MG/0.4 ML SYR SQ SCH (08:00)
[2017-08-12 09:08] VITALS: BP 122/76; PULSE 62; TEMP 36.6; O2SAT 90
--- NOTE | 2017-08-12 09:45 | Progress Note ---
Internal Med Progress Note Date of Service: Aug 12, 2017. Provider Documentation: SUBJECTIVE: No acute distress. Patient seen at bedside eating breakfast. Denies pain or shortness of breath OBJECTIVE: General Appearance: WD/WN, no apparent distress Head: normocephalic, atraumatic Eyes: normal inspection, sclerae normal ENT: hearing grossly normal Neck: supple, no JVD, trachea midline Respiratory/Chest: lungs clear, normal breath sounds, no respiratory distress Cardiovascular: regular rate, rhythm, no edema, normal peripheral pulses Abdomen/GI: normal bowel sounds, non tender, soft, no organomegaly Extremities/Musculoskelatal: normal inspection, no calf tenderness, normal capillary refill Neurologic/Psych: no motor/sensory deficits, alert Skin: normal color, warm/dry, + pertinent finding (laceration noted to right triceps area with sutures intact and surrounding bruising) ASSESSMENT & PLAN: Patient was recently admitted to [facility] 08/08/17-08/10/17 after suffering a fall at home. Patient was discharged to home with home health services from that hospital stay. Patient was brought to the ED on 08/11/17 by request of her family due to concerns for her ability to take care of herself Health Issues DEMENTIA , ANEMIA chronic, RIGHT UPPER ARM LACERATION with sutures on 08/08/17, Hypertension Discharge to [facility] Discharge follow up appointments 08/17/2017 11:20 AM Maritza Osuna, DO Internal Medicine [facility] Patient was recently hospitalized for mechanical fall and on this admission she is still seen with sutures on right arm near area of hematoma. Patient will also need referral to have sutures beneath right arm removed after discharge. Vital Signs: Date Time Temp Pulse Resp B/P (MAP) Pulse Ox O2 Delivery O2 Flow Rate FiO2 08/12/17 09:08 36.6 62 18 90 Room Air 08/12/17 08:00 Room Air 08/12/17 07:41 36.6 62 18 122/76 (91) 90 08/12/17 00:00 Room Air 08/11/17 23:58 36.7 78 18 122/70 (87) 93 Room Air 08/11/17 22:15 36.5 78 18 112/76 95 Room Air 08/11/17 21:25 36.5 78 18 112/76 (88) 95 Room Air 08/11/17 19:46 65 16 142/73 95 Room Air 08/11/17 18:10 37.0 85 16 127/68 95 Room Air Lab Results: Results Past 24 Hours Test 08/11/17 18:44 08/11/17 18:50 Range/Units Urine Color DK YELLOW Urine Appearance CLOUDY CLEAR Urine pH 5.0 4.5-7.5 Urine Specific [place] 1.018 1.000-1.030 Urine Protein TRACE NEG Urine Glucose (UA) NEG NEG Urine Ketones TRACE NEG Urine Occult Blood NEG NEG Urine Nitrite NEG NEG Urine Bilirubin NEG NEG Urine Urobilinogen NEG NEG Urine Leukocyte Esterase LARGE NEG Urine WBC (Auto) >30 0-5 /hpf Urine RBC (Auto) 5-10 0-4 /hpf Urine Hyaline Casts (Auto) 10-30 0-5 /lpf Urine Epithelial Cells (Auto) >30 0-5 /lpf Urine Bacteria (Auto) NEG NEG Urine Crystals CALCIUM OXALATE NONE PRSENT Urine Pathogenic Casts 0 /lpf Urine Mucus PRESENT NONE PRSENT Urine Yeast (Auto) PRESENT NONE PRSENT Urine Opiates Screen NEG NEG Urine Methadone, Qualitative NEG NEG Urine Barbiturates NEG NEG Urine Phencyclidine (PCP) Level NEG NEG Ur Amphetamine/Methamphetamine NEG NEG MDMA (Ecstasy) Screen NEG NEG Urine Benzodiazepines Screen NEG NEG Urine Cocaine Metabolite NEG NEG Urine Marijuana (THC) NEG NEG White Blood Count 4.19 4.8-10.8 K/uL Red Blood Count 3.14 4.2-5.4 M/uL Hemoglobin 9.0 12.0-16.0 g/dL Hematocrit 27.7 37-47 % Mean Corpuscular Volume 88.2 80-100 fL Mean Corpuscular Hemoglobin 28.7 25-34 pg Mean Corpuscular Hemoglobin Concent 32.5 32-36 g/dl Platelet Count 380 130-400 K/uL Mean Platelet Volume 10.6 7.4-10.4 fL Neutrophils (%) (Auto) 54.0 % Lymphocytes (%) (Auto) 35.6 % Monocytes (%) (Auto) 3.0 % Eosinophils (%) (Auto) 5.3 % Basophils (%) (Auto) 1.5 % Neutrophils # (Auto) 2.53 1.4-6.5 K/uL Lymphocytes # (Auto) 1.67 1.2-3.4 K/uL Monocytes # (Auto) 0.14 0.11-0.59 K/uL Eosinophils # (Auto) 0.25 0-0.5 K/uL Basophils # (Auto) 0.07 0-0.2 K/uL RDW Standard Deviation 71.2 36.4-46.3 fL RDW Coefficient of Variation 22.4 11.5-14.5 % Immature Granulocyte % (Auto) 0.6 % Immature Granulocyte # (Auto) 0.03 0.00-0.02 K/uL Large Platelets 2+ Polychromasia 1+ Poikilocytosis PRESENT Anisocytosis PRESENT Ovalocytes 1+ Echinocytes 1+ Sodium Level 133 136-145 mmol/L Potassium Level 3.7 3.5-5.1 mmol/L Chloride Level 101 98-107 mmol/L Carbon Dioxide Level 24 21-32 mmol/L Anion Gap 8.0 3-11 mmol/L Blood Urea Nitrogen 11 7-18 mg/dl Creatinine 0.83 0.60-1.20 mg/dl Est Creatinine Clear Calc Drug Dose 44.4 ml/min Estimated GFR () 73.5 Estimated GFR (Non- 63.4 BUN/Creatinine Ratio 13.4 10-20 Random Glucose 101 70-99 mg/dl Calcium Level 9.6 8.5-10.1 mg/dl Total Bilirubin 0.6 0.2-1 mg/dl Aspartate Amino Transf (AST/SGOT) 17 15-37 U/L Alanine Aminotransferase (ALT/SGPT) 15 12-78 U/L Alkaline Phosphatase 73 45-117 U/L Total Creatine Kinase 40 26-192 U/L Troponin I < 0.015 0-0.045 ng/ml Total Protein 7.1 6.4-8.2 gm/dl Albumin 3.0 3.4-5.0 gm/dl Globulin 4.1 2.5-4.0 gm/dl Albumin/Globulin Ratio 0.7 0.9-2 Thyroid Stimulating Hormone (TSH) 2.150 0.300-4.500 uIu/ml Microbiology Results 08/11/17 Urine Culture, Received Pending
--- NOTE | 2017-08-12 09:57 | Discharge Instructions ---
Discharge Instructions Date of Service Aug 12, 2017. Admission Reason for Admission: Dementia Discharge Discharge Diagnosis / Problem: DEMENTIA , ANEMIA chronic, RIGHT UPPER ARM LACERATION with sutures Discharge Goals Goal(s): Improve function Activity Recommendations Activity Limitations: per Instructions/Follow-up section Shower/Bathe: no limitations . Instructions / Follow-Up Instructions / Follow-Up Patient was recently admitted to [facility] 08/08/17-08/10/17 after suffering a fall at home. Patient was discharged to home with home health services from that hospital stay. Patient was brought to the ED on 08/11/17 by request of her family due to concerns for her ability to take care of herself Health Issues DEMENTIA , ANEMIA chronic, RIGHT UPPER ARM LACERATION with sutures on 08/08/17, Hypertension Discharge to [facility] Discharge follow up appointments 08/17/2017 11:20 AM Maritza Osuna, DO Internal Medicine [facility] Patient was recently hospitalized for mechanical fall and on this admission she is still seen with sutures on right arm near area of hematoma. Patient will also need referral to have sutures beneath right arm removed after discharge. Current Hospital Diet Patient's current hospital diet: Regular Diet Discharge Diet Recommended Diet: Regular Diet Pending Studies Studies pending at discharge: no Laboratory Results 08/11/17 18:50 Red Blood Count 3.14, Mean Corpuscular Volume 88.2, Mean Corpuscular Hemoglobin 28.7, Mean Corpuscular Hemoglobin Concent 32.5, Mean Platelet Volume 10.6, Neutrophils (%) (Auto) 54.0, Lymphocytes (%) (Auto) 35.6, Monocytes (%) (Auto) 3.0, Eosinophils (%) (Auto) 5.3, Basophils (%) (Auto) 1.5, Neutrophils # (Auto) 2.53, Lymphocytes # (Auto) 1.67, Monocytes # (Auto) 0.14, Eosinophils # (Auto) 0.25, Basophils # (Auto) 0.07 08/11/17 18:50 Test 08/11/17 18:44 08/11/17 18:50 Urine Color DK YELLOW Urine Appearance CLOUDY (CLEAR) Urine pH 5.0 (4.5-7.5) Urine Specific [place] 1.018 (1.000-1.030) Urine Protein TRACE (NEG) Urine Glucose (UA) NEG (NEG) Urine Ketones TRACE (NEG) Urine Occult Blood NEG (NEG) Urine Nitrite NEG (NEG) Urine Bilirubin NEG (NEG) Urine Urobilinogen NEG (NEG) Urine Leukocyte Esterase LARGE (NEG) Urine WBC (Auto) >30 /hpf (0-5) Urine RBC (Auto) 5-10 /hpf (0-4) Urine Hyaline Casts (Auto) 10-30 /lpf (0-5) Urine Epithelial Cells (Auto) >30 /lpf (0-5) Urine Bacteria (Auto) NEG (NEG) Urine Crystals CALCIUM OXALATE (NONE Urine Pathogenic Casts /lpf (0) Urine Mucus PRESENT (NONE PRSENT) Urine Yeast (Auto) PRESENT (NONE PRSENT) Urine Opiates Screen NEG (NEG) Urine Methadone, Qualitative NEG (NEG) Urine Barbiturates NEG (NEG) Urine Phencyclidine (PCP) Level NEG (NEG) Ur Amphetamine/Methamphetamine NEG (NEG) MDMA (Ecstasy) Screen NEG (NEG) Urine Benzodiazepines Screen NEG (NEG) Urine Cocaine Metabolite NEG (NEG) Urine Marijuana (THC) NEG (NEG) White Blood Count 4.19 K/uL (4.8-10.8) Red Blood Count 3.14 M/uL (4.2-5.4) Hemoglobin 9.0 g/dL (12.0-16.0) Hematocrit 27.7 % (37-47) Mean Corpuscular Volume 88.2 fL (80-100) Mean Corpuscular Hemoglobin 28.7 pg (25-34) Mean Corpuscular Hemoglobin Concent 32.5 g/dl (32-36) Platelet Count 380 K/uL (130-400) Mean Platelet Volume 10.6 fL (7.4-10.4) Neutrophils (%) (Auto) 54.0 % Lymphocytes (%) (Auto) 35.6 % Monocytes (%) (Auto) 3.0 % Eosinophils (%) (Auto) 5.3 % Basophils (%) (Auto) 1.5 % Neutrophils # (Auto) 2.53 K/uL (1.4-6.5) Lymphocytes # (Auto) 1.67 K/uL (1.2-3.4) Monocytes # (Auto) 0.14 K/uL (0.11-0.59) Eosinophils # (Auto) 0.25 K/uL (0-0.5) Basophils # (Auto) 0.07 K/uL (0-0.2) RDW Standard Deviation 71.2 fL (36.4-46.3) RDW Coefficient of Variation 22.4 % (11.5-14.5) Immature Granulocyte % (Auto) 0.6 % Immature Granulocyte # (Auto) 0.03 K/uL (0.00-0.02) Large Platelets 2+ Polychromasia 1+ Poikilocytosis PRESENT Anisocytosis PRESENT Ovalocytes 1+ Echinocytes 1+ Anion Gap 8.0 mmol/L (3-11) Est Creatinine Clear Calc Drug Dose 44.4 ml/min Estimated GFR () 73.5 Estimated GFR (Non- 63.4 BUN/Creatinine Ratio 13.4 (10-20) Calcium Level 9.6 mg/dl (8.5-10.1) Total Bilirubin 0.6 mg/dl (0.2-1) Aspartate Amino Transf (AST/SGOT) 17 U/L (15-37) Alanine Aminotransferase (ALT/SGPT) 15 U/L (12-78) Alkaline Phosphatase 73 U/L (45-117) Total Creatine Kinase 40 U/L (26-192) Troponin I < 0.015 ng/ml (0-0.045) Total Protein 7.1 gm/dl (6.4-8.2) Albumin 3.0 gm/dl (3.4-5.0) Globulin 4.1 gm/dl (2.5-4.0) Albumin/Globulin Ratio 0.7 (0.9-2) Thyroid Stimulating Hormone (TSH) 2.150 uIu/ml (0.300-4.500) Date/Time Source Procedure Growth Status 08/11/17 18:44 Urine , Clean Catch Urine Culture Pending Received Medical Emergencies . Who to Call and When: Medical Emergencies: If at any time you feel your situation is an emergency, please call 911 immediately. . Non-Emergent Contact Non-Emergency issues call your: Primary Care Provider Call Non-Emergent contact if: you have any medication questions . . "Provider Documentation" section prepared by Benedict Nair. . VTE Core Measure Inpt VTE Proph given/why not?: Enoxaparin (Lovenox)SQ
--- NOTE | 2017-08-12 09:58 | Discharge Summary ---
Discharge Summary Date of Service Aug 12, 2017. Discharge Summary Admission Date: Aug 11, 2017 at 20:01 Discharge Date: Aug 12, 2017 Discharge Disposition: detention facility ([facility]) Principal Diagnosis: DEMENTIA , ANEMIA chronic, RIGHT UPPER ARM LACERATION with sutures Medication Reconciliation Continued Medications: Calcium Carbonate-Vitamin D (Calcium 600 + D) 1 Tab Tab 1 TAB PO QAM Cholecalciferol (Vitamin D3 400) 400 Unit Cap 400 UNITS PO QAM Multiple Vitamin (Multivitamin) 1 Tab Tab 1 TAB PO QAM Pramipexole Dihydrochloride (Pramipexole Dihydrochlori) 0.5 Mg Tab 0.5 MG PO HS Propranolol Hcl (Propranolol Hcl Er) 120 Mg Cap 120 MG PO QAM Tramadol Hcl (Ultram) 50 Mg Tab 50 MG PO QID Admission Information HPI (per Admitting provider): 87 year old female who was brought to the ED by request of her family due to concerns for her ability to take care of herself. Patient was recently admitted to [facility] 08/08-08/10 after suffering a fall at home. She was not found to have any acute fractures. Patient was discharged home with home services. Patient is currently without complaint. History is considered unreliable due to her dementia. Per ER documentation, son had reported that he found a paper plate in the oven with it turned on. Office of aging is currently involved regarding patient's placement. In the ED, patient's labs are unremarkable and vitals are stable. Physical Exam (per Admitting): General Appearance: WD/WN, no apparent distress Head: normocephalic, atraumatic Eyes: normal inspection, EOMI, sclerae normal ENT: hearing grossly normal, + pertinent finding (mucous membranes moist ) Neck: supple, no JVD, trachea midline Respiratory/Chest: lungs clear, normal breath sounds, no respiratory distress Cardiovascular: regular rate, rhythm, no edema, normal peripheral pulses Abdomen/GI: normal bowel sounds, non tender, soft, no organomegaly Extremities/Musculoskelatal: normal inspection, no calf tenderness, normal capillary refill Neurologic/Psych: no motor/sensory deficits, alert, + disoriented (to time and situation) Skin: normal color, warm/dry, + pertinent finding (laceration noted to right triceps area with sutures intact and surrounding bruising) Hospital Course Patient was recently admitted to [facility] 08/08/17-08/10/17 after suffering a fall at home. Patient was discharged to home with home health services from that hospital stay. Patient was brought to the ED on 08/11/17 by request of her family due to concerns for her ability to take care of herself Health Issues DEMENTIA , ANEMIA chronic, RIGHT UPPER ARM LACERATION with sutures on 08/08/17, Hypertension Discharge to [facility] Discharge follow up appointments 08/17/2017 11:20 AM Maritza Osuna, Internal Medicine [facility] Patient was recently hospitalized for mechanical fall and on this admission she is still seen with sutures on right arm near area of hematoma. Patient will also need referral to have sutures beneath right arm removed after discharge. Total time spent on discharge = 35 minutes This includes examination of the patient, discharge planning, medication reconciliation, and communication with other providers. Discharge Instructions see above
== END 2017-08-12 10:45 ==
LOC: EDBD 18:08 → C.EDA 18:16 → C.4E 20:01 → ENRESERV 20:26
PROVIDERS: ADMIT Hospitalist; ATTEND Hospitalist
DX: F03.90 Unspecified dementia, unspecified severity, without behavioral disturbance, psychotic disturbance, mood disturbance, and anxiety (principal); D64.9 Anemia, unspecified; S41.111A Laceration without foreign body of right upper arm, initial encounter; Z91.81 History of falling; I10 Essential (primary) hypertension; Z86.73 Personal history of transient ischemic attack (TIA), and cerebral infarction without residual deficits; E78.5 Hyperlipidemia, unspecified; Z86.718 Personal history of other venous thrombosis and embolism; Z85.41 Personal history of malignant neoplasm of cervix uteri; Z87.891 Personal history of nicotine dependence; Z96.659 Presence of unspecified artificial knee joint; Z90.89 Acquired absence of other organs; Z90.710 Acquired absence of both cervix and uterus; Z82.49 Family history of ischemic heart disease and other diseases of the circulatory system; Z80.1 Family history of malignant neoplasm of trachea, bronchus and lung

== ENCOUNTER 2017-11-17 10:49 | Inpatient (IN) | payer OTHER ==
[~2017-11-17] VITALS: Ht 160 cm; Wt 52.7 kg
[~2017-11-17 10:49] MED LIST changes: -PRAM0.5T10 PO; +PRAM0.5T13 PO; +ULT/50 PO
[2017-11-17 12:54] LABS: PTT PATIENT 21.9 SECONDS (21.0-31.0)
[2017-11-17] MEDS ORDERED: POTA-639 PO (12:56)
[2017-11-17] MEDS ORDERED: FERR1TAB62 PO (12:56)
[2017-11-17] MEDS ORDERED: RANI150T3 PO (12:56)
[2017-11-17 13:00] LABS: HEMATOCRIT 24.8 % (37-47); HEMOGLOBIN 8.1 g/dL (12.0-16.0); MEAN CORPUSCULAR HEMOGLOBIN 28.4 pg (25-34); MEAN CORPUSCULAR HGB CONC 32.7 g/dl (32-36); MEAN PLATELET VOLUME 10.3 fL (7.4-10.4); PLATELET COUNT 244 K/uL (130-400); RED CELL DISTRIBUTION WIDTH CV 23.8 % (11.5-14.5); RED CELL DISTRIBUTION WIDTH SD 73.4 fL (36.4-46.3); WHITE BLOOD COUNT 1.39 K/uL (4.8-10.8)
[2017-11-17 13:03] LABS: ALBUMIN 3.6 gm/dl (3.4-5.0); CALCIUM 9.6 mg/dl (8.5-10.1); CREATININE 0.72 mg/dl (0.60-1.20); POTASSIUM 4.1 mmol/L (3.5-5.1)
[2017-11-17 13:06] LABS: TOTAL PROTEIN 7.7 gm/dl (6.4-8.2)
--- NOTE | 2017-11-17 14:06 | DIAGNOSTIC IMAGING REPORT ---
CHEST 2 VIEWS ROUTINE CLINICAL HISTORY: Neutropenia COMPARISON STUDY: 08/11/2017 FINDINGS: The heart is normal in size. The patient remains hyperinflated. There is no focal pulmonary consolidation. There is no failure. There are old left-sided rib deformities.[ IMPRESSION: No active disease in the chest. Electronically signed by: Donovan Kumra M.D. 11/17/2017 2:04 PM Dictated Date/Time: 11/17/2017 2:04 PM
--- NOTE | 2017-11-17 14:55 | DIAGNOSTIC IMAGING REPORT ---
CT SCAN OF THE BRAIN WITHOUT IV CONTRAST CLINICAL HISTORY: Change in mental status. COMPARISON STUDY: CT of the brain dated 08/11/2017. TECHNIQUE: Unenhanced axial CT scan of the brain is performed from the vertex to the skull base. A dose lowering technique was utilized adhering to the principles of ALARA. CT DOSE: 537.48 mGy.cm FINDINGS: Brain parenchyma: There are age-related involutional changes noting moderate patchy subcortical and periventricular microangiopathic change. There is no hemorrhage, mass effect, or evidence of acute territorial ischemia by CT criteria. Koehler-white matter is preserved. No extra-axial fluid collection is seen. Ventricles, sulci, cisterns: Prominent secondary to involutional change. Intracranial vasculature: There is atherosclerotic calcification of the cavernous carotid and vertebral arteries. Calvarium: Unremarkable. Sinuses and mastoids: Secretions are noted in the left maxillary antrum. There is fluid in the sphenoid sinuses. The remaining visualized paranasal sinuses are clear. There are small mastoid effusions. Orbits: The bony orbits are grossly intact. There are bilateral ocular lens implants. IMPRESSION: 1. There is no hemorrhage, mass effect, or evidence of acute territorial ischemia by CT criteria. 2. Paranasal sinus disease as above. Electronically signed by: Jenaro Trevizo M.D. 11/17/2017 2:54 PM Dictated Date/Time: 11/17/2017 2:52 PM
--- NOTE | 2017-11-17 14:59 | History and Physical ---
History & Physical Date & Time of Service: November 17, 2017 at 14:59 Chief Complaint: Assessment Primary Care Physician: Maritza Osuna D.O. History of Present Illness Source: patient, family ([id number]) Disease an 87-year-old female with history of chronic anemia, thrombocytopenia since 2011 Patient been followed with hematology oncology Dr. Koehler Received intermittent blood transfusion Patient refused to have bone marrow biopsy, or any other diagnostics studies suggested by hematology oncology Her symptoms has progressively worsened in the past few months Worsening of weakness, shortness of breath, limited exercise tolerance At present resident at [facility] Outpatient lab shows hemoglobin 6.1 Patient was sent to [facility] for repeat blood work further investigation and possible PRBC transfusion In ER patient's hemoglobin found to be 8.1 Neutropenia With thrombocytopenia platelet count of 54 Peripheral blood film showed presence of blast cells Lab finding discussed with on-call hematology Dr. 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 As patient refused all test in the past and still not interested for any chemo or invasive treatment Transferring patient to [facility] will not be appropriate Report of the blood work explained to [id number] and patient Does not want any aggressive treatment Willing for intermittent blood transfusion Present patient feels fine, she is cheerful wants to return back to [facility] as soon as possible Understands her prognosis is poor Willing to have discussion with palliative care service And will consider hospice when patient becomes symptomatic/unable to tolerate blood transfusion Past Medical/Surgical History Medical Problems: (1) Anemia (2) Cerebrovascular disease (3) Cholelithiasis (4) CVA (cerebral infarction) (5) Dehydration (6) Diverticular disease of colon (7) Diverticulitis (8) Dyslipidemia (9) Hip fracture (10) History of cervical cancer (11) History of Clostridium difficile infection (12) History of DVT (deep vein thrombosis) (13) Hypertension (14) Knee effusion (15) Laceration (16) Migraine (17) Weakness (18) Weakness Surgical Problems: (1) S/P knee replacement (2) Status post appendectomy (3) Status post cardiac catheterization (4) Status post hysterectomy Family History Hypertension MOTHER Lung cancer BROTHER Social History Smoking Status: Former Smoker Housing status: lives alone Immunizations History of Influenza Vaccine: Yes Influenza Vaccine Date: May 08, 2016 History of Pneumococcal: Yes Pneumococcal Date: Jul 27, 2014 Allergies Coded Allergies: No Known Allergies (Unverified , 11/17/17) Home Medications Scheduled Calcium Carbonate-Vitamin D (Calcium 600 + D), 1 TAB PO QAM Cholecalciferol (Vitamin D3 400), 400 UNITS PO QAM Ferrous Sulfate (Ferrous Sulfate), 325 MG PO BID Multiple Vitamin (Multivitamin), 1 TAB PO QAM Potassium Ext Rel (Klor-Con), 20 MEQ PO DAILY Pramipexole Dihydrochloride (Pramipexole Dihydrochlori), 0.5 MG PO HS Propranolol Hcl (Propranolol Hcl Er), 120 MG PO QAM Ranitidine Hcl (Zantac), 150 MG PO BID Tramadol Hcl (Ultram), 50 MG PO QID Review of Systems Constitutional: + weight loss, + weakness, + fatigue Respiratory: + shortness of breath, + dyspnea on exertion, + dyspnea at rest Abdomen: No pain, No nausea, No vomiting, No diarrhea, No constipation, No GI bleeding, No problem reported Neurologic: + memory loss (Dementia), + paralysis, + weakness, + vertigo, + balance problems Physical Exam Vital Signs Date Time Temp Pulse Resp B/P (MAP) Pulse Ox O2 Delivery O2 Flow Rate FiO2 11/17/17 13:49 68 18 137/83 95 Room Air 11/17/17 12:19 67 18 151/75 96 Room Air 11/17/17 11:11 70 11/17/17 10:58 36.9 67 18 156/90 95 Room Air General Appearance: no apparent distress (Very pale), + pertinent finding ( Very pleasant, very hard of hearing with baseline dementia) Head: normocephalic, atraumatic Eyes: sclerae normal Neck: no carotid bruits, trachea midline Respiratory/Chest: lungs clear, normal breath sounds, no respiratory distress Cardiovascular: regular rate, rhythm, no edema, no gallop, no JVD Abdomen/GI: normal bowel sounds, non tender, soft Extremities/Musculoskelatal: normal inspection, no calf tenderness, normal capillary refill, no pedal edema Neurologic/Psych: no motor/sensory deficits, alert, normal mood/affect, + pertinent finding (Increased forgetfulness, baseline dementia) Diagnostics Laboratory Results Results Past 24 Hours Test 11/17/17 11:20 11/17/17 12:34 11/17/17 14:50 11/17/17 14:53 Range/Units White Blood Count 1.39 4.8-10.8 K/uL Red Blood Count 2.85 4.2-5.4 M/uL Hemoglobin 8.1 12.0-16.0 g/dL Hematocrit 24.8 37-47 % Mean Corpuscular Volume 87.0 80-100 fL Mean Corpuscular Hemoglobin 28.4 25-34 pg Mean Corpuscular Hemoglobin Concent 32.7 32-36 g/dl Platelet Count 244 130-400 K/uL Mean Platelet Volume 10.3 7.4-10.4 fL RDW Standard Deviation 73.4 36.4-46.3 fL RDW Coefficient of Variation 23.8 11.5-14.5 % Neutrophils % (Manual) 17.0 % Lymphocytes % (Manual) 57.0 % Monocytes % (Manual) 1.0 % Eosinophils % (Manual) 12.0 % Basophils % (Manual) 9.0 % Myelocytes % 3.0 % Blast Cells % 1.0 % Neutrophils # (Manual) 0.24 1.4-6.5 K/uL Total Absolute Neutrophils 0.24 1.4-6.5 K/uL Lymphocytes # (Manual) 0.79 1.2-3.4 K/uL Total Absolute Lymphocytes 0.79 1.2-3.4 K/uL Monocytes # (Manual) 0.01 0.11-0.59 K/uL Eosinophils # (Manual) 0.17 0-0.5 K/uL Basophils # (Manual) 0.13 0-0.2 K/uL Myelocytes # 0.04 0-0 K/uL Blast Cells # 0.01 0-0 K/uL Blood Smear Review Poikilocytosis PRESENT Anisocytosis PRESENT Acanthocytes 1+ Prothrombin Time 10.0 9.0-12.0 SECONDS Prothromb Time International Ratio 1.0 0.9-1.1 Activated Partial Thromboplast Time 21.9 21.0-31.0 SECONDS Partial Thromboplastin Ratio 0.8 Sodium Level 138 136-145 mmol/L Potassium Level 4.1 3.5-5.1 mmol/L Chloride Level 104 98-107 mmol/L Carbon Dioxide Level 28 21-32 mmol/L Anion Gap 6.0 3-11 mmol/L Blood Urea Nitrogen 10 7-18 mg/dl Creatinine 0.72 0.60-1.20 mg/dl Est Creatinine Clear Calc Drug Dose 45.5 ml/min Estimated GFR () 87.3 Estimated GFR (Non- 75.3 BUN/Creatinine Ratio 13.7 10-20 Random Glucose 91 70-99 mg/dl Calcium Level 9.6 8.5-10.1 mg/dl Total Bilirubin 0.6 0.2-1 mg/dl Direct Bilirubin 0.1 0-0.2 mg/dl Aspartate Amino Transf (AST/SGOT) 12 15-37 U/L Alanine Aminotransferase (ALT/SGPT) 11 12-78 U/L Alkaline Phosphatase 56 45-117 U/L Total Protein 7.7 6.4-8.2 gm/dl Albumin 3.6 3.4-5.0 gm/dl Urine Color YELLOW Urine Appearance CLOUDY CLEAR Urine pH 7.0 4.5-7.5 Urine Specific [place] 1.016 1.000-1.030 Urine Protein NEG NEG Urine Glucose (UA) NEG NEG Urine Ketones NEG NEG Urine Occult Blood NEG NEG Urine Nitrite NEG NEG Urine Bilirubin NEG NEG Urine Urobilinogen NEG NEG Urine Leukocyte Esterase TRACE NEG Urine WBC (Auto) 1-5 0-5 /hpf Urine RBC (Auto) 0-4 0-4 /hpf Urine Hyaline Casts (Auto) 1-5 0-5 /lpf Urine Epithelial Cells (Auto) >30 0-5 /lpf Urine Bacteria (Auto) NEG NEG Test 11/17/17 14:55 Range/Units CXR normal Impression Assessment and Plan ANEMIA /NEUTROPENIA /thrombocytopenia: Diagnosed since 2011 next with progression of symptoms-possible primary bone marrow disease Patient refused to have bone marrow biopsy in past Peripheral blood smear shows presence of blast suggestive of 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 transition Flow cytometry ordered Hematology oncology consulted Appreciate input Patient will be transfused for hemoglobin less than 7, R symptom of shortness of breath dyspnea on exertion, increased weakness and fatigue Platelet count 54 No active bleeding noted Monitor CBC Avoid antiplatelets or anticoagulation Transfusion for platelet count less than 5K SIGNIFICANT WEIGHT LOSS/POOR APPETITE Possibly secondary to above Outpatient CT abdomen pelvis showed no evidence of malignancy HEADACHE /DIZZY SPELL : Possible secondary to anemia CT head negative for acute change paranasal sinusitis empiric abx with Augmentin DNR/DNI DVT PROPHYLAXIS : moderate to high risk SCD and Teds Pharmacological anticoagulation avoided secondary to severe anemia and thrombocytopenia DISPOSITION Resident at [facility] to return back to [facility] after blood transfusion Very poor prognosis with bone marrow disorder/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
[2017-11-17 15:01] VITALS: O2SAT 95
[2017-11-17] MEDS ORDERED: AMOXICILLIN/CLAVULANATE TAB 500 MG TAB PO ONE (15:06)
[2017-11-17] MEDS ORDERED: MAGNESIUM HYDROXIDE SUSP 30 ML UDC PO PRN (15:15)
[2017-11-17] MEDS ORDERED: ONDANSETRON INJ 2 MG/ML 2 ML VIAL IV PRN (15:15)
[2017-11-17] MEDS ORDERED: TRAMADOL HCL 50 MG TAB PO PRN (15:15)
[2017-11-17] MEDS ORDERED: POLYETHYLENE (MIRALAX) 17 GM PACK PO PRN (15:15)
[2017-11-17] MEDS ORDERED: ALUMINUM/MAGNESIUM/SIMETH (MAALOX MAX) 30 ML UDC PO PRN (15:15)
[2017-11-17] MEDS ORDERED: ACETAMINOPHEN 325 MG TAB PO PRN (15:15)
[2017-11-17 16:51] VITALS: BP 142/84; PULSE 68; TEMP 36.8; O2SAT 96
--- NOTE | 2017-11-17 17:52 | EMERGENCY ROOM VISIT NOTE ---
ED Visit Note First contact with patient: 11:17 Chief Complaint: Worsening anemia. History of Present Illness: Ms. Mary is an 87-year-old white female who is brought into the ED via ambulance from [facility] accompanied by her daughter with reports of decreasing hemoglobin. Historically patient has a history of normocytic anemia of questionable etiology. She has been seen oncology for her ongoing anemia. She was brought into the hospital on August 2017 for her anemia and received 2 units of blood. Patient and daughter reports that routine blood testing were being performed and today her hemoglobin was 6.7 which is decreased from her ongoing hemoglobin in the mid to lower 9. During transport EMS noted that patient was placed on nasal cannula oxygen because she became hypoxic when she was not on oxygen and maintained a saturation of 95% on 2 L of oxygen. Additionally patient reports that this morning after waking she had a mild headache and was given Tylenol and the headache quickly resolved and has not returned. Currently patient has no complaints and reports she has been feeling well over the last few days. She denies headache, dizziness, lightheadedness, upper respiratory tract symptoms, shortness of breath, chest pain, palpitations, nausea, vomiting, abdominal pain, diarrhea, constipation, black/tarry stools, urinary symptoms, hematuria, easy bruising, easy bleeding. Review of Systems: As noted above in history of present illness. All body systems were reviewed and found to be negative as noted above. Past Medical History: As previously noted and CVA, cholelithiasis, diverticulitis, dyslipidemia, unspecified hip fracture, cervical cancer, C. difficile, DVT, hypertension, migraine headaches, status post appendectomy, cardiac catheterization, hysterectomy and unspecified knee replacement. Current Medications: Medications Dose Route/Sig Max Daily Dose Days Date Category Ultram (Tramadol Hcl) 50 Mg Tab 50 Mg PO QID 08/11/17 Reported Pramipexole Dihydrochlori (Pramipexole Dihydrochloride) 0.5 Mg Tab 0.5 Mg PO HS 08/03/17 Reported Calcium 600 + D (Calcium Carbonate-Vitamin D) 1 Tab Tab 1 Tab PO QAM 03/01/16 Reported Vitamin D3 400 (Cholecalciferol) 400 Unit Cap 400 Units PO QAM 08/27/13 Reported Propranolol Hcl Er (Propranolol Hcl) 120 Mg Cap 120 Mg PO QAM 08/27/13 Reported Multivitamin (Multiple Vitamin) 1 Tab Tab 1 Tab PO QAM 03/29/12 Reported Allergies to Medications: None reported. Social History: Patient is not currently employed; she feels safe her home environment; she denies tobacco and alcohol use per Physical Examination: Vital Signs: Date Time Temp Pulse Resp B/P (MAP) Pulse Ox O2 Delivery O2 Flow Rate FiO2 11/17/17 13:49 68 18 137/83 95 Room Air 11/17/17 12:19 67 18 151/75 96 Room Air 11/17/17 11:11 70 11/17/17 10:58 36.9 67 18 156/90 95 Room Air GENERAL: 87-year-old female in no acute distress, nontoxic-appearing, afebrile and hemodynamically stable. NEUROLOGICAL: Awake, alert and oriented to person, place but confused this time. Daughter does report that intermittently she forgets her name.. Answering questions appropriately and following commands. Normal gait. Good hand eye coordination. No focal motor sensory deficits. Cranial nerves II through XII grossly intact. SKIN: Warm, dry and pink. No soft tissue eruptions or trauma noted. HEENT: Atraumatic and normocephalic. PERRLA. EOMI without nystagmus. Sclera white and conjunctiva pale. No drainage from naris. Oral cavity moist and pale. Airway patent. Pharynx is nonerythematous or edematous. Speech normal and clear. No lymphadenopathy. Trachea midline. No jugular venous distention. No carotid bruits. BACK: No tenderness over the bony spine. No CVA tenderness. THORAX: Lungs sounds are clear to auscultation and equal bilaterally with symmetrical chest wall. No wheezing, rales or rhonchi. No crepitus, tenderness , subcutaneous air or deformities noted. HEART: Regular rate and rhythm. No gallops, rubs or murmurs are appreciated. ABDOMEN: Flat, soft and nontender. Positive bowel sounds in all quadrants. No guarding, rigidity or organomegaly. RECTAL: No external hemorrhoids or tags. Normal rectal tone. No palpable rectal masses. Racing positive stools. EXTREMITIES: Moves all extremities well on command and with purpose. All distal neurovascular statuses are intact and equal bilaterally. No calf tenderness or cords. ED Course: Patient is assessed as noted above. Patient's medication list was reviewed. Laboratory Testing: Test 11/17/17 11:20 11/17/17 12:34 Range/Units White Blood Count 1.39 4.8-10.8 K/uL Red Blood Count 2.85 4.2-5.4 M/uL Hemoglobin 8.1 12.0-16.0 g/dL Hematocrit 24.8 37-47 % Mean Corpuscular Volume 87.0 80-100 fL Mean Corpuscular Hemoglobin 28.4 25-34 pg Mean Corpuscular Hemoglobin Concent 32.7 32-36 g/dl Platelet Count 244 130-400 K/uL Mean Platelet Volume 10.3 7.4-10.4 fL RDW Standard Deviation 73.4 36.4-46.3 fL RDW Coefficient of Variation 23.8 11.5-14.5 % Neutrophils % (Manual) 17.0 % Lymphocytes % (Manual) 57.0 % Monocytes % (Manual) 1.0 % Eosinophils % (Manual) 12.0 % Basophils % (Manual) 9.0 % Myelocytes % 3.0 % Blast Cells % 1.0 % Neutrophils # (Manual) 0.24 1.4-6.5 K/uL Total Absolute Neutrophils 0.24 1.4-6.5 K/uL Lymphocytes # (Manual) 0.79 1.2-3.4 K/uL Total Absolute Lymphocytes 0.79 1.2-3.4 K/uL Monocytes # (Manual) 0.01 0.11-0.59 K/uL Eosinophils # (Manual) 0.17 0-0.5 K/uL Basophils # (Manual) 0.13 0-0.2 K/uL Myelocytes # 0.04 0-0 K/uL Blast Cells # 0.01 0-0 K/uL Blood Smear Review Poikilocytosis PRESENT Anisocytosis PRESENT Acanthocytes 1+ Prothrombin Time 10.0 9.0-12.0 SECONDS Prothromb Time International Ratio 1.0 0.9-1.1 Activated Partial Thromboplast Time 21.9 21.0-31.0 SECONDS Partial Thromboplastin Ratio 0.8 Sodium Level 138 136-145 mmol/L Potassium Level 4.1 3.5-5.1 mmol/L Chloride Level 104 98-107 mmol/L Carbon Dioxide Level 28 21-32 mmol/L Anion Gap 6.0 3-11 mmol/L Blood Urea Nitrogen 10 7-18 mg/dl Creatinine 0.72 0.60-1.20 mg/dl Est Creatinine Clear Calc Drug Dose 45.5 ml/min Estimated GFR () 87.3 Estimated GFR (Non- 75.3 BUN/Creatinine Ratio 13.7 10-20 Random Glucose 91 70-99 mg/dl Uric Acid 4.3 2.6-7.2 mg/dl Calcium Level 9.6 8.5-10.1 mg/dl Total Bilirubin 0.6 0.2-1 mg/dl Direct Bilirubin 0.1 0-0.2 mg/dl Aspartate Amino Transf (AST/SGOT) 12 15-37 U/L Alanine Aminotransferase (ALT/SGPT) 11 12-78 U/L Alkaline Phosphatase 56 45-117 U/L Total Protein 7.7 6.4-8.2 gm/dl Albumin 3.6 3.4-5.0 gm/dl Urine Color YELLOW Urine Appearance CLOUDY CLEAR Urine pH 7.0 4.5-7.5 Urine Specific [place] 1.016 1.000-1.030 Urine Protein NEG NEG Urine Glucose (UA) NEG NEG Urine Ketones NEG NEG Urine Occult Blood NEG NEG Urine Nitrite NEG NEG Urine Bilirubin NEG NEG Urine Urobilinogen NEG NEG Urine Leukocyte Esterase TRACE NEG Urine WBC (Auto) 1-5 0-5 /hpf Urine RBC (Auto) 0-4 0-4 /hpf Urine Hyaline Casts (Auto) 1-5 0-5 /lpf Urine Epithelial Cells (Auto) >30 0-5 /lpf Urine Bacteria (Auto) NEG NEG Chest X-Ray: Was read by myself and the radiologist showing no acute infiltrates , effusions or pneumothorax. Normal heart silhouette and bony anatomy. Radiologist does note old left-sided rib fractures. EKG: Was read by myself and reviewed with my attending; shows normal sinus rhythm with a ventricular rate of 64 bpm. Left axial deviation. Normal intervals and complexes. No acute ST changes indicating ischemia, injury or infarction. This was compared to a previous from August 2017 and I note no acute changes. Head CT: Was reviewed by myself and read by the radiologist showing no hemorrhage, mass-effect or evidence of acute tentorial ischemia. An IV lock was initiated. Patient was reassessed multiple times during her stay in the emergency department. Patient's case was reviewed with Dr. Villarreal; he independently assessed the patient we agreed on diagnostic approach, treatment, disposition and plan. Patient's case was consulted with Dr. Koehler of oncology; she recommended x-ray and peripheral blood smear; these returned and the chest x-ray was normal and patient had blast cells in the smear. Patient's case was consulted with Dr. Oakley, [facility] for medical observation/admission. Patient and family members were educated about today's findings. Clinical Impression: Anemia. Neutropenia. Decision-Making: Initially my differential diagnosis I considered gastrointestinal bleeding,, hemolytic anemia, iron deficient anemia, megaloblastic leukemia, pernicious anemia, leukemia, and other causes. Disposition and Plan: Patient be brought into the hospital by the [facility] for medical observation/admission; please see their notes and orders for final disposition and plan.
[2017-11-17 18:40] LABS: HEMATOCRIT 22.2 % (37-47); HEMOGLOBIN 7.3 g/dL (12.0-16.0)
[2017-11-17 20:13] VITALS: Ht 160 cm; Wt 52.7 kg
--- NOTE | 2017-11-17 20:40 | Medical Consult ---
Consultation Date of Consultation: November 17, 2017. Attending Physician: Neisha Quiros M.D. Reason for Consultation: anemia and leukopenia History of Present Illness 87 year old female with anemia and leukopenia with severe neutropenia. She had CBC w/ diff today that showed hemoglobin of 6.7 and severe leukopenia and was sent to ER for further evaluation. She has longstanding anemia since at least 2011 but since 05/2017 anemia has been worse. Bone marrow aspirate and biopsy previously discussed but patient not interested in bone marrow aspirate and biopsy. A MDS FISH panel was ordered on peripheral blood but patient did not do the test. She states that she is still not interested in having a bone marrow aspirate and biopsy at this time for further evaluation of her low blood counts. She states that she feels well. She denies any fever or chills or night sweats. She lives at [facility] and states that she ambulate with walker. She denies any fatigue or cough or shortness of breath or chest pain or lightheadedness or headache. She has easy bruising A single blast and severe leukopenia with absolute neutropenia reported on peripheral smear Flow cytometry is pending on peripheral blood Past Medical/Surgical History PMH/PSH: knee replacement, hip fracture, patient states had a prior right hip replacement, hysterectomy, appendectomy, anemia CVA, cholelithiasis, diverticulosiss, restless legs, dyslipidemia, DVT, HTN Family History Hypertension MOTHER Lung cancer BROTHER Social History Smoking Status: Former Smoker Alcohol Use: none Drug Use: none Housing Status: assisted living Allergies Coded Allergies: No Known Allergies (Unverified , 11/17/17) Current Inpatient Medications Current Inpatient Medications Medications (Trade) Dose Ordered Sig/Gin Route Start Time Stop Time Status Last Admin Dose Admin Multivitamins (Multivitamin Tab) 1 tab QAM PO 11/18/17 08:00 12/18/17 08:59 Potassium Chloride (Klor-Con Tab) 20 meq DAILY PO 11/18/17 08:00 12/18/17 08:59 Pramipexole Dihydrochloride (miraPEX TAB) 0.5 mg HS PO 11/17/17 21:00 12/17/17 20:59 Ranitidine HCl (zANTac TAB) 150 mg BID PO 11/17/17 20:00 12/17/17 20:59 Tramadol HCl (Ultram Tab) 50 mg QID PRN PO 11/17/17 15:15 12/17/17 15:14 Calcium/Vitamin D (Caltrate Plus Tab) 1 tab QAM PO 11/18/17 08:00 12/18/17 08:59 Cholecalciferol (Vitamin D Tab) 400 inter.unit QAM PO 11/18/17 08:00 12/18/17 08:59 Ferrous Sulfate (Feosol Tab) 325 mg BIDM PO 11/17/17 17:00 12/17/17 17:59 Propranolol HCl (Inderal La Cap) 120 mg QAM PO 11/18/17 08:00 12/18/17 08:59 Acetaminophen (Tylenol Tab) 650 mg Q4H PRN PO 11/17/17 15:15 12/17/17 15:14 Al Hydrox/Mg Hydrox/Simethicone (Maalox Max Susp) 15 ml Q4H PRN PO 11/17/17 15:15 12/17/17 15:14 Magnesium Hydroxide (Milk Of Magnesia Susp) 30 ml Q6H PRN PO 11/17/17 15:15 12/17/17 15:14 Polyethylene (Miralax Powder Packet) 17 gm DAILY PRN PO 11/17/17 15:15 12/17/17 15:14 Ondansetron HCl (Zofran Inj) 4 mg Q6H PRN IV 11/17/17 15:15 12/17/17 15:14 Amoxicillin/ Clavulanate Potassium (Augmentin Tab) 500 mg BIDM PO 11/17/17 21:00 11/27/17 20:59 Review of Systems Constitutional: No fever, No chills, No sweats, No fatigue ENT: + nasal symptoms (mild congestion sometimes, clear rhinorrhea), No unusual epistaxis, No sore throat Respiratory: No cough, No sputum, No wheezing, No dyspnea on exertion, No dyspnea at rest, No hemoptysis Cardiovascular: No chest pain, No palpitations Abdomen: No pain, No nausea, No vomiting, No diarrhea, No constipation Musculoskeletal: No joint pain, No muscle pain Neurologic: No numbness/tingling Hematologic / Lymphatic: + problem reported (bruising sometimes) Integumentary: No rash, No itch Physical Exam Date Time Temp Pulse Resp B/P (MAP) Pulse Ox O2 Delivery O2 Flow Rate FiO2 11/17/17 16:51 36.8 68 20 142/84 (103) 96 Room Air 11/17/17 15:01 66 18 130/69 95 Room Air 11/17/17 13:49 68 18 137/83 95 Room Air 11/17/17 12:19 67 18 151/75 96 Room Air 11/17/17 11:11 70 11/17/17 10:58 36.9 67 18 156/90 95 Room Air General Appearance: WD/WN, no apparent distress (elderly female ) Head: normocephalic, atraumatic Eyes: sclerae normal, + pertinent finding (mild pallor) ENT: pharynx normal, + pertinent finding (no thrush) Neck: no adenopathy Respiratory/Chest: chest non-tender, lungs clear, normal breath sounds, no respiratory distress, no accessory muscle use Cardiovascular: regular rate, rhythm, no edema, no gallop, no JVD, no murmur Abdomen/GI: normal bowel sounds, non tender, soft, no organomegaly Back: no CVA tenderness Extremities/Musculoskelatal: no calf tenderness, no pedal edema, non-tender Neurologic/Psych: alert, oriented x 3 Skin: warm/dry, no rash Laboratory Results Last 24 Hours Test 11/17/17 11:20 11/17/17 12:34 11/17/17 15:44 11/17/17 18:28 White Blood Count 1.39 K/uL Red Blood Count 2.85 M/uL Hemoglobin 8.1 g/dL 7.3 g/dL Hematocrit 24.8 % 22.2 % Mean Corpuscular Volume 87.0 fL Mean Corpuscular Hemoglobin 28.4 pg Mean Corpuscular Hemoglobin Concent 32.7 g/dl Platelet Count 244 K/uL Mean Platelet Volume 10.3 fL RDW Standard Deviation 73.4 fL RDW Coefficient of Variation 23.8 % Neutrophils % (Manual) 17.0 % Lymphocytes % (Manual) 57.0 % Monocytes % (Manual) 1.0 % Eosinophils % (Manual) 12.0 % Basophils % (Manual) 9.0 % Myelocytes % 3.0 % Blast Cells % 1.0 % Neutrophils # (Manual) 0.24 K/uL Total Absolute Neutrophils 0.24 K/uL Lymphocytes # (Manual) 0.79 K/uL Total Absolute Lymphocytes 0.79 K/uL Monocytes # (Manual) 0.01 K/uL Eosinophils # (Manual) 0.17 K/uL Basophils # (Manual) 0.13 K/uL Myelocytes # 0.04 K/uL Blast Cells # 0.01 K/uL Blood Smear Review Poikilocytosis PRESENT Anisocytosis PRESENT Acanthocytes 1+ Peripheral Blood Smear Path Consult Prothrombin Time 10.0 SECONDS Prothromb Time International Ratio 1.0 Activated Partial Thromboplast Time 21.9 SECONDS Partial Thromboplastin Ratio 0.8 Sodium Level 138 mmol/L Potassium Level 4.1 mmol/L Chloride Level 104 mmol/L Carbon Dioxide Level 28 mmol/L Anion Gap 6.0 mmol/L Blood Urea Nitrogen 10 mg/dl Creatinine 0.72 mg/dl Est Creatinine Clear Calc Drug Dose 45.5 ml/min Estimated GFR () 87.3 Estimated GFR (Non- 75.3 BUN/Creatinine Ratio 13.7 Random Glucose 91 mg/dl Uric Acid 4.3 mg/dl Calcium Level 9.6 mg/dl Total Bilirubin 0.6 mg/dl Direct Bilirubin 0.1 mg/dl Aspartate Amino Transf (AST/SGOT) 12 U/L Alanine Aminotransferase (ALT/SGPT) 11 U/L Alkaline Phosphatase 56 U/L Total Protein 7.7 gm/dl Albumin 3.6 gm/dl Urine Color YELLOW Urine Appearance CLOUDY Urine pH 7.0 Urine Specific [place] 1.016 Urine Protein NEG Urine Glucose (UA) NEG Urine Ketones NEG Urine Occult Blood NEG Urine Nitrite NEG Urine Bilirubin NEG Urine Urobilinogen NEG Urine Leukocyte Esterase TRACE Urine WBC (Auto) 1-5 /hpf Urine RBC (Auto) 0-4 /hpf Urine Hyaline Casts (Auto) 1-5 /lpf Urine Epithelial Cells (Auto) >30 /lpf Urine Bacteria (Auto) NEG Fibrinogen 497 mg/dl Lactate Dehydrogenase 154 U/L CT head 1. There is no hemorrhage, mass effect, or evidence of acute territorial ischemia by CT criteria. 2. Paranasal sinus disease as above. CXR: : No active disease in the chest. Assessment & Plan 87 year old female admitted with worsening anemia and severe neutropenia I discussed with patient that findings suspicious for underlying bone marrow disorder Differential include MDS and/ evolving leukemia Benefits/risks/alternatives of bone marrow aspirate and biopsy discussed with her and patient information on bone marrow aspirate and biopsy provided to her Patient refuses bone marrow aspirate and biopsy. check MDS FISH and flow cytometry on peripheral blood as she is agreeable to that at this time She states that she is also not interested in receiving any chemotherapy treatment even if underlying bone marrow cancer or leukemia is found. MDS or Acute leukemia would not be curable but less intensive palliative chemotherapy option would be decitabine or azacitadine or best supportive care She states that she would be interested in receiving transfusions if the anemia worsens and if she develop symptoms from the anemia but states that right now she feels good. Recommend supportive transfusions as needed -Transfuse PRBC as needed if hemoglobin</=7 or if symptomatic anemia with hemoglobin <8 check iron studies Platelet count is adequate. Transfuse platelet if <15 or bleeding. She denies any bleeding symptoms Maintain neutropenia precautions Cefepime if she develops fever Recommend consider palliative care consult Follow up in the office upon discharge thank you for consult
[2017-11-17 20:47] VITALS: BP 160/78; PULSE 72; TEMP 36.9; O2SAT 96
[2017-11-17] MEDS: RANITIDINE HCL 150 MG TAB PO SCH (20:52)
[2017-11-17] MEDS: FERROUS SULFATE 325 MG TAB PO SCH (20:52)
[2017-11-17] MEDS: PRAMIPEXOLE DIHYDROCHLORIDE 0.5 MG TAB PO SCH (20:52)
[2017-11-17] MEDS: AMOXICILLIN/CLAVULANATE TAB 500 MG TAB PO SCH (20:53)
[2017-11-18 06:30] LABS: HEMATOCRIT 25.2 % (37-47); HEMOGLOBIN 8.4 g/dL (12.0-16.0); MEAN CELL VOLUME 87.8 fL (80-100); MEAN CORPUSCULAR HEMOGLOBIN 29.3 pg (25-34); MEAN CORPUSCULAR HGB CONC 33.3 g/dl (32-36); MEAN PLATELET VOLUME 10.4 fL (7.4-10.4); PLATELET COUNT 166 K/uL (130-400); RED CELL DISTRIBUTION WIDTH CV 20.9 % (11.5-14.5)
[2017-11-18 06:32] LABS: CALCIUM 8.7 mg/dl (8.5-10.1); CREATININE 0.58 mg/dl (0.60-1.20); POTASSIUM 3.7 mmol/L (3.5-5.1)
[2017-11-18 07:26] VITALS: BP 107/66; PULSE 68; TEMP 36.3; O2SAT 90
[2017-11-18] MEDS: AMOXICILLIN/CLAVULANATE TAB 500 MG TAB PO SCH ×2 (08:09→17:16)
[2017-11-18] MEDS: CALCIUM 600MG + VIT D 400 IU TAB PO SCH (08:09)
[2017-11-18] MEDS: RANITIDINE HCL 150 MG TAB PO SCH ×2 (08:10→20:05)
[2017-11-18] MEDS: CHOLECALCIFEROL 400 INTER.UNIT TAB PO SCH (08:10)
[2017-11-18] MEDS: POTASSIUM CHLORIDE 20 MEQ TABCR PO SCH (08:10)
[2017-11-18] MEDS: FERROUS SULFATE 325 MG TAB PO SCH ×2 (08:10→17:16)
[2017-11-18] MEDS: PROPRANOLOL HCL 60 MG LA CAP PO SCH (08:10)
[2017-11-18] MEDS: MULTIVITAMIN TAB PO SCH (08:10)
[2017-11-18 15:05] VITALS: BP 128/78; PULSE 66; TEMP 36.7; O2SAT 99
--- NOTE | 2017-11-18 16:49 | Progress Note ---
Internal Med Progress Note Date of Service: November 18, 2017. 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 ASSESSMENT & PLAN: ANEMIA /NEUTROPENIA /thrombocytopenia: Diagnosed since 2011 next with progression of symptoms-possible primary bone marrow disease Patient refused to have bone marrow biopsy in past Peripheral blood smear shows presence of blast suggestive of 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 transition Flow cytometry ordered Hematology oncology consulted-Appreciate input Patient will be transfused for hemoglobin less than 7, R symptom of shortness of breath dyspnea on exertion, increased weakness and fatigue Not willing to do any further w/u and or Treatment for suspected duagnosis Counts are reasonable today Discussed with the Daughter and Son Symptomatic management SIGNIFICANT WEIGHT LOSS/POOR APPETITE Possibly secondary to above Outpatient CT abdomen pelvis showed no evidence of malignancy HEADACHE /DIZZY SPELL : Possible secondary to anemia CT head negative for acute change paranasal sinusitis empiric abx with Augmentin No more episode DNR/DNI DVT PROPHYLAXIS : moderate to high risk SCD and Teds Pharmacological anticoagulation avoided secondary to severe anemia and thrombocytopenia DISPOSITION [facility] blood transfusion Very poor prognosis with bone marrow disorder/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 Palliative care consulted Plan of care of updated to [id number] 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 ) Understands improved prognosis in the setting of advanced age, limited treatment options available Willing for hospice palliative care consult Palliative care consulted Discussed with the Daughter Likely discharge tomorrow Vital Signs: Date Time Temp Pulse Resp B/P (MAP) Pulse Ox O2 Delivery O2 Flow Rate FiO2 11/18/17 15:05 36.7 66 18 128/78 (95) 99 Room Air 11/18/17 11:19 Room Air 11/18/17 07:26 36.3 68 18 107/66 (80) 90 Room Air 11/18/17 00:02 Room Air 11/17/17 20:57 Room Air 11/17/17 20:47 36.9 72 18 160/78 96 11/17/17 16:51 36.8 68 20 142/84 (103) 96 Room Air Lab Results: Results Past 24 Hours Test 11/17/17 18:28 11/18/17 05:30 Range/Units Hemoglobin 7.3 8.4 12.0-16.0 g/dL Hematocrit 22.2 25.2 37-47 % Iron Level 96 35-150 mcg/dl Total Iron Binding Capacity 234 250-450 mcg/dl Ferritin 241.3 8.0-388.0 ng/ml White Blood Count 1.70 4.8-10.8 K/uL Red Blood Count 2.87 4.2-5.4 M/uL Mean Corpuscular Volume 87.8 80-100 fL Mean Corpuscular Hemoglobin 29.3 25-34 pg Mean Corpuscular Hemoglobin Concent 33.3 32-36 g/dl RDW Standard Deviation 67.0 36.4-46.3 fL RDW Coefficient of Variation 20.9 11.5-14.5 % Platelet Count 166 130-400 K/uL Mean Platelet Volume 10.4 7.4-10.4 fL Sodium Level 140 136-145 mmol/L Potassium Level 3.7 3.5-5.1 mmol/L Chloride Level 106 98-107 mmol/L Carbon Dioxide Level 26 21-32 mmol/L Anion Gap 8.0 3-11 mmol/L Blood Urea Nitrogen 9 7-18 mg/dl Creatinine 0.58 0.60-1.20 mg/dl Est Creatinine Clear Calc Drug Dose 56.5 ml/min Estimated GFR () 96.1 Estimated GFR (Non- 82.9 BUN/Creatinine Ratio 16.1 10-20 Random Glucose 82 70-99 mg/dl Calcium Level 8.7 8.5-10.1 mg/dl
--- NOTE | 2017-11-18 19:38 | Progress Note ---
Progress Note Date of Service November 18, 2017. Progress Note Phone note Pathologist Dr Villalba called that flow cytometry showed 6% blasts and he will add the MDS FISH panel I called and spoke to her son Darrian and daughter in law Bernarda regarding the result per patient wishes and informed them of the above and that her blood counts are low and discussed that results are highly suspicious of bone marrow neoplasm such as MDS or evolving acute leukemia. I discussed with them that with this the bone marrow is not functioning normally and not making enough of the normal cells and the potential complications including but not limited to infections with the severely low white blood cell count and symptomatic anemia and eventually as the disease progress she may also develop low platelet count and require transfusions of PRBCs and platelets as disease progress. They are aware that patient refuses bone marrow aspirate and biopsy and that she is also not interested in receiving chemotherapy. I discussed decitabine option but they said they concur with patient's decision regarding refusal or bone marrow biopsy but agree that she would want to receive transfusions as needed if she gets symptomatic from the anemia. recommend maintain neutropenia precautions as well at her residence - handwashing, wear mask and avoid any sick contacts recommend check CBC twice weekly upon discharge Mondays and and transfuse if hemoglobin <7 or if symptoms at <8 Recommend f/u in office within a week of her discharge
--- NOTE | 2017-11-18 19:42 | Palliative Care Consultation ---
Consultation Date of Consultation: November 18, 2017. Requesting Physician: Dr Quiros Attending Physician: Dr Quiros Reason for Consultation: Discuss goals of care, patient already a DNR History of Present Illness Patient is a delightful 87-year-old female with a history of anemia and thrombocytopenia-diagnosed in [address] Koehler in oncology. Patient has refused further workup including bone marrow biopsy. Patient is transfusion dependent, her last transfusion of 2 units was in August. Patient was admitted to the hospital on 11/17 for a outpatient hemoglobin is 6.1 , along with low sats on room air. Patient was transfused, hemoglobin 8.4 this a.m. Discussed with patient her goals of care, patient is a very lively 87-year-old, reports helping other residents with their personal care at [facility]. Patient would like to continue transfusions when needed and is realistic regarding her prognosis. Patient understands at some point trans-fusions may no longer be warranted or helpful, discussed enrolling in hospice care at that time. 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 difficile, history of DVT, history of migraine, anemia and thrombocytopenia. Social History Smoking Status: Former Smoker History of Alcohol Use: No Drug Use: none Housing Status: lives alone, assisted living (Lives at [facility] with one roommate) Review of Systems Constitutional: No fever, No chills Eyes: No worsening of vision ENT: No hearing loss Respiratory: No cough Cardiac: No chest pain, No orthopnea, No edema Abdomen: No pain, No nausea Musculoskeletal: No joint pain Female : No dysuria Neurologic: No weakness Psychiatric: No depression symptoms, No anxiety Heme: + problem reported (Chronic anemia and thrombocytopenia) Endo: + fatigue (Prior to admission and prior to transfusion) Allergies Coded Allergies: No Known Allergies (Unverified , 11/17/17) Medications Current Inpatient Medications Medications (Trade) Dose Ordered Sig/Gin Route Start Time Stop Time Status Last Admin Dose Admin Multivitamins (Multivitamin Tab) 1 tab QAM PO 11/18/17 08:00 12/18/17 08:59 11/18/17 08:10 1 TAB Potassium Chloride (Klor-Con Tab) 20 meq DAILY PO 11/18/17 08:00 12/18/17 08:59 11/18/17 08:10 20 MEQ Pramipexole Dihydrochloride (miraPEX TAB) 0.5 mg HS PO 11/17/17 21:00 12/17/17 20:59 11/17/17 20:52 0.5 MG Ranitidine HCl (zANTac TAB) 150 mg BID PO 11/17/17 20:00 12/17/17 20:59 11/18/17 08:10 150 MG Tramadol HCl (Ultram Tab) 50 mg QID PRN PO 11/17/17 15:15 12/17/17 15:14 Calcium/Vitamin D (Caltrate Plus Tab) 1 tab QAM PO 11/18/17 08:00 12/18/17 08:59 11/18/17 08:09 1 TAB Cholecalciferol (Vitamin D Tab) 400 inter.unit QAM PO 11/18/17 08:00 12/18/17 08:59 11/18/17 08:10 400 INTER.UNIT Ferrous Sulfate (Feosol Tab) 325 mg BIDM PO 11/17/17 17:00 12/17/17 17:59 11/18/17 17:16 325 MG Propranolol HCl (Inderal La Cap) 120 mg QAM PO 11/18/17 08:00 12/18/17 08:59 11/18/17 08:10 120 MG Acetaminophen (Tylenol Tab) 650 mg Q4H PRN PO 11/17/17 15:15 12/17/17 15:14 Al Hydrox/Mg Hydrox/Simethicone (Maalox Max Susp) 15 ml Q4H PRN PO 11/17/17 15:15 12/17/17 15:14 Magnesium Hydroxide (Milk Of Magnesia Susp) 30 ml Q6H PRN PO 11/17/17 15:15 12/17/17 15:14 Polyethylene (Miralax Powder Packet) 17 gm DAILY PRN PO 11/17/17 15:15 12/17/17 15:14 Ondansetron HCl (Zofran Inj) 4 mg Q6H PRN IV 11/17/17 15:15 12/17/17 15:14 Amoxicillin/ Clavulanate Potassium (Augmentin Tab) 500 mg BIDM PO 11/17/17 21:00 11/27/17 20:59 11/18/17 17:16 500 MG Physical Exam Date Time Temp Pulse Resp B/P (MAP) Pulse Ox O2 Delivery O2 Flow Rate FiO2 11/18/17 16:00 Room Air 11/18/17 15:05 36.7 66 18 128/78 (95) 99 Room Air 11/18/17 11:19 Room Air 11/18/17 07:26 36.3 68 18 107/66 (80) 90 Room Air 11/18/17 00:02 Room Air 11/17/17 20:57 Room Air 11/17/17 20:47 36.9 72 18 160/78 96 General Appearance: no apparent distress Eyes: EOMI ENT: hearing grossly normal Neck: supple Respiratory: lungs clear Cardiovascular: regular rate, rhythm, no edema (Does have compression hose on) Abdomen: normal bowel sounds, non tender, soft Musculoskeletal: normal tone Neurologic/Psychiatric: alert Skin: warm/dry Laboratory Results Last 24 Hours Test 11/18/17 05:30 White Blood Count 1.70 K/uL Red Blood Count 2.87 M/uL Hemoglobin 8.4 g/dL Hematocrit 25.2 % Mean Corpuscular Volume 87.8 fL Mean Corpuscular Hemoglobin 29.3 pg Mean Corpuscular Hemoglobin Concent 33.3 g/dl RDW Standard Deviation 67.0 fL RDW Coefficient of Variation 20.9 % Platelet Count 166 K/uL Mean Platelet Volume 10.4 fL Sodium Level 140 mmol/L Potassium Level 3.7 mmol/L Chloride Level 106 mmol/L Carbon Dioxide Level 26 mmol/L Anion Gap 8.0 mmol/L Blood Urea Nitrogen 9 mg/dl Creatinine 0.58 mg/dl Est Creatinine Clear Calc Drug Dose 56.5 ml/min Estimated GFR () 96.1 Estimated GFR (Non- 82.9 BUN/Creatinine Ratio 16.1 Random Glucose 82 mg/dl Calcium Level 8.7 mg/dl Assessment & Plan Palliative Performance Scale: 50 % (Uses a rolling walker) (1) Palliative care encounter Assessment & Plan: Discussed goals of care as well as prognosis with the patient. She is to remain a DO NOT RESUSCITATE. Patient is anxious to return to her residence at [place]. Patient would like to continue to receive transfusions as needed, she is aware at some point they may no longer be helpful and was instructed on how to contact hospice at that time. (2) Anemia Counseling and Coordination Total time spent 55 minutes with greater than 50% of the time spent at bedside discussing patient's current status, prognosis, treatment options and goals of care.
[2017-11-18] MEDS: PRAMIPEXOLE DIHYDROCHLORIDE 0.5 MG TAB PO SCH (20:05)
[2017-11-18 23:35] VITALS: BP 111/63; PULSE 74; TEMP 36.9; O2SAT 93
[2017-11-19 07:32] VITALS: BP 113/66; PULSE 73; TEMP 36.4; O2SAT 91
[2017-11-19] MEDS: POTASSIUM CHLORIDE 20 MEQ TABCR PO SCH (07:57)
[2017-11-19] MEDS: CALCIUM 600MG + VIT D 400 IU TAB PO SCH (07:57)
[2017-11-19] MEDS: AMOXICILLIN/CLAVULANATE TAB 500 MG TAB PO SCH (07:57)
[2017-11-19] MEDS: PROPRANOLOL HCL 60 MG LA CAP PO SCH (07:57)
[2017-11-19] MEDS: MULTIVITAMIN TAB PO SCH (07:57)
[2017-11-19] MEDS: CHOLECALCIFEROL 400 INTER.UNIT TAB PO SCH (07:57)
[2017-11-19] MEDS: FERROUS SULFATE 325 MG TAB PO SCH (07:57)
[2017-11-19] MEDS: RANITIDINE HCL 150 MG TAB PO SCH (07:57)
[2017-11-19 09:44] LABS: MEAN PLATELET VOLUME 9.7 fL (7.4-10.4); PLATELET COUNT 202 K/uL (130-400)
[2017-11-19 10:10] LABS: CALCIUM 9.5 mg/dl (8.5-10.1); CREATININE 0.82 mg/dl (0.60-1.20)
[2017-11-19 10:39] LABS: HEMATOCRIT 29.1 % (37-47); HEMOGLOBIN 9.6 g/dL (12.0-16.0); MEAN CELL VOLUME 87.4 fL (80-100); MEAN CORPUSCULAR HEMOGLOBIN 28.8 pg (25-34); RED CELL DISTRIBUTION WIDTH CV 21.5 % (11.5-14.5); RED CELL DISTRIBUTION WIDTH SD 67.9 fL (36.4-46.3); WHITE BLOOD COUNT 1.47 K/uL (4.8-10.8)
[2017-11-19 14:30] VITALS: BP 136/79; PULSE 68; TEMP 36.4; O2SAT 91
--- NOTE | 2017-11-19 15:42 | Progress Note ---
Internal Med Progress Note Date of Service: November 19, 2017. 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 ASSESSMENT & PLAN: ANEMIA /NEUTROPENIA /thrombocytopenia: Diagnosed since 2011 next with progression of symptoms-possible primary bone marrow disease Patient refused to have bone marrow biopsy in past Peripheral blood smear shows presence of blast suggestive of 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 transition Flow cytometry ordered Hematology oncology consulted-Appreciate input Patient will be transfused for hemoglobin less than 7, R symptom of shortness of breath dyspnea on exertion, increased weakness and fatigue Not willing to do any further w/u and or Treatment for suspected duagnosis Counts are reasonable today Discussed with the Daughter and Son Symptomatic management Received 1 unit of blood Hb 8.9 11/19 Symptomatically better 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 Followed by Oncologist Has Neutropenia Will need regular blood check and symptomatic management Discussed with the daughter-agreeable Frequent UTI Will give levaquin prophylaxis SIGNIFICANT WEIGHT LOSS/POOR APPETITE Possibly secondary to above Outpatient CT abdomen pelvis showed no evidence of malignancy HEADACHE /DIZZY SPELL : Possible secondary to anemia CT head negative for acute change paranasal sinusitis empiric abx with Augmentin No more episode DNR/DNI DVT PROPHYLAXIS : moderate to high risk SCD and Teds Pharmacological anticoagulation avoided secondary to severe anemia and thrombocytopenia DISPOSITION Resident at [facility] Wants to return back to [facility] after blood transfusion Very poor prognosis with bone marrow disorder/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 Palliative care consulted Plan of care of updated to [id number] 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 ) Understands improved prognosis in the setting of advanced age, limited treatment options available Willing for hospice palliative care consult Palliative care consulted Discussed with the Daughter Likely discharge today Vital Signs: Date Time Temp Pulse Resp B/P (MAP) Pulse Ox O2 Delivery O2 Flow Rate FiO2 11/19/17 14:30 36.4 68 22 136/79 (98) 91 Room Air 11/19/17 09:56 Room Air 11/19/17 07:32 36.4 73 18 113/66 (82) 91 Room Air 11/19/17 00:07 Room Air 11/18/17 23:35 36.9 74 16 111/63 (79) 93 Room Air 11/18/17 16:00 Room Air Lab Results: Results Past 24 Hours Test 11/19/17 09:33 Range/Units White Blood Count 1.47 4.8-10.8 K/uL Red Blood Count 3.33 4.2-5.4 M/uL Hemoglobin 9.6 12.0-16.0 g/dL Hematocrit 29.1 37-47 % Mean Corpuscular Volume 87.4 80-100 fL Mean Corpuscular Hemoglobin 28.8 25-34 pg Mean Corpuscular Hemoglobin Concent 33.0 32-36 g/dl Platelet Count 202 130-400 K/uL Mean Platelet Volume 9.7 7.4-10.4 fL RDW Standard Deviation 67.9 36.4-46.3 fL RDW Coefficient of Variation 21.5 11.5-14.5 % Neutrophils % (Manual) 5.5 % Lymphocytes % (Manual) 73.4 % Monocytes % (Manual) 3.7 % Eosinophils % (Manual) 13.8 % Basophils % (Manual) 1.8 % Blast Cells % 1.8 % Neutrophils # (Manual) 0.08 1.4-6.5 K/uL Total Absolute Neutrophils 0.08 1.4-6.5 K/uL Lymphocytes # (Manual) 1.08 1.2-3.4 K/uL Total Absolute Lymphocytes 1.08 1.2-3.4 K/uL Monocytes # (Manual) 0.05 0.11-0.59 K/uL Eosinophils # (Manual) 0.20 0-0.5 K/uL Basophils # (Manual) 0.03 0-0.2 K/uL Blast Cells # 0.03 0-0 K/uL Large Platelets 1+ Poikilocytosis PRESENT Anisocytosis PRESENT Sodium Level 138 136-145 mmol/L Potassium Level 4.0 3.5-5.1 mmol/L Chloride Level 105 98-107 mmol/L Carbon Dioxide Level 26 21-32 mmol/L Anion Gap 7.0 3-11 mmol/L Blood Urea Nitrogen 14 7-18 mg/dl Creatinine 0.82 0.60-1.20 mg/dl Est Creatinine Clear Calc Drug Dose 40.0 ml/min Estimated GFR () 74.6 Estimated GFR (Non- 64.3 BUN/Creatinine Ratio 17.3 10-20 Random Glucose 83 70-99 mg/dl Calcium Level 9.5 8.5-10.1 mg/dl Magnesium Level 1.9 1.8-2.4 mg/dl
[2017-11-19] MEDS ORDERED: LEVOFLOXACIN 250 MG TAB PO ONE (15:45)
[2017-11-19] MEDS ORDERED: LVQ250 PO (16:16)
[2017-11-19] MEDS ORDERED: LCTX PO (16:16)
--- NOTE | 2017-11-19 16:21 | Discharge Instructions ---
Discharge Instructions Date of Service November 19, 2017. 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 Additional Information Patient informed of condition: Yes Advance Directives: No DNR: Yes Level of Care: Skilled Communicable Disease: No Prognosis: Stable Oxygen at (LPM): 2 liters/min via NC as needed De Jesus Catheter: No Instructions / Follow-Up Instructions / Follow-Up Dr Koehler's office will call with appointment. Please check CBC with Diff 2 times a week and report to Dr Koehler Current Hospital Diet Patient's current hospital diet: Regular Diet Discharge Diet Recommended Diet: Regular Diet Pending Studies Studies pending at discharge: no Medical Emergencies . Who to Call and When: Medical Emergencies: If at any time you feel your situation is an emergency, please call 911 immediately. . Non-Emergent Contact Non-Emergency issues call your: Primary Care Provider . Past History Medical & Surgical History: (1) Pancytopenia (2) Anemia (3) Palliative care encounter (4) Hypertension (5) S/P knee replacement (6) Status post appendectomy (7) Status post hysterectomy (8) Status post cardiac catheterization . "Provider Documentation" section prepared by Neisha Quiros. . [employer] Other Ranks Recommendations [employer] Member Other Ranks Recommendations: Has Neutropenia-Needs a single room and Neutropenic precaution.Started on Prophylactic Levaquin. If any fever >38.0 with associated symptoms of infection will need to be sent to ER. Core Measure Problem Core Measures: None
[2017-11-19 16:26] VITALS: BP 136/79; PULSE 68; TEMP 36.4; O2SAT 91
--- NOTE | 2017-11-20 08:25 | Discharge Summary ---
Discharge Summary Date of Service November 20, 2017. 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 Secondary Diagnoses/Problems: Please see H&P and Hospital Progress note Consultations: Hematology and Palliative Medication Reconciliation New Medications: Lactobacillus Acidophilus (Lactinex) Tab 2 TAB PO BID, #60 TAB Levofloxacin (Levofloxacin) 250 Mg Tab 250 MG PO DAILY@11 for 30 Days, #30 TAB Continued Medications: Calcium Carbonate-Vitamin D (Calcium 600 + D) 1 Tab Tab 1 TAB PO QAM Cholecalciferol (Vitamin D3 400) 400 Unit Cap 400 UNITS PO QAM Ferrous Sulfate (Ferrous Sulfate) 325 Mg Tab 325 MG PO BID Multiple Vitamin (Multivitamin) 1 Tab Tab 1 TAB PO QAM Potassium Ext Rel (Klor-Con) 20 Meq Tabcr 20 MEQ PO DAILY, TAB Pramipexole Dihydrochloride (Pramipexole Dihydrochlori) 0.5 Mg Tab 0.5 MG PO HS Propranolol Hcl (Propranolol Hcl Er) 120 Mg Cap 120 MG PO QAM Ranitidine Hcl (Zantac) 150 Mg Tab 150 MG PO BID, TAB Tramadol Hcl (Ultram) 50 Mg Tab 50 MG PO QID Admission Information HPI (per Admitting provider): Disease an 87-year-old female with history of chronic anemia, thrombocytopenia since 2011 Patient been followed with hematology oncology Dr. Koehler Received intermittent blood transfusion Patient refused to have bone marrow biopsy, or any other diagnostics studies suggested by hematology oncology Her symptoms has progressively worsened in the past few months Worsening of weakness, shortness of breath, limited exercise tolerance At present resident at [facility] Outpatient lab shows hemoglobin 6.1 Patient was sent to [facility] for repeat blood work further investigation and possible PRBC transfusion In ER patient's hemoglobin found to be 8.1 Neutropenia With thrombocytopenia platelet count of 54 Peripheral blood film showed presence of blast cells Lab finding discussed with on-call hematology Dr. 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 As patient refused all test in the past and still not interested for any chemo or invasive treatment Transferring patient to [facility] will not be appropriate Report of the blood work explained to [id number] and patient Does not want any aggressive treatment Willing for intermittent blood transfusion Present patient feels fine, she is cheerful wants to return back to [facility] as soon as possible Understands her prognosis is poor Willing to have discussion with palliative care service And will consider hospice when patient becomes symptomatic/unable to tolerate blood transfusion Past Medical/Surgical History Medical Problems: (1) Anemia (2) Cerebrovascular disease (3) Cholelithiasis (4) CVA (cerebral infarction) (5) Dehydration (6) Diverticular disease of colon (7) Diverticulitis (8) Dyslipidemia (9) Hip fracture (10) History of cervical cancer (11) History of Clostridium difficile infection (12) History of DVT (deep vein thrombosis) (13) Hypertension (14) Knee effusion (15) Laceration (16) Migraine (17) Weakness (18) Weakness Surgical Problems: (1) S/P knee replacement (2) Status post appendectomy (3) Status post cardiac catheterization (4) Status post hysterectomy Family History Hypertension MOTHER Lung cancer BROTHER Social History Smoking Status: Former Smoker Housing status: lives alone Immunizations History of Influenza Vaccine: Yes Influenza Vaccine Date: May 08, 2016 History of Pneumococcal: Yes Pneumococcal Date: Jul 27, 2014 Allergies Coded Allergies: No Known Allergies (Unverified , 11/17/17) Home Medications Scheduled Calcium Carbonate-Vitamin D (Calcium 600 + D), 1 TAB PO QAM Cholecalciferol (Vitamin D3 400), 400 UNITS PO QAM Ferrous Sulfate (Ferrous Sulfate), 325 MG PO BID Multiple Vitamin (Multivitamin), 1 TAB PO QAM Potassium Ext Rel (Klor-Con), 20 MEQ PO DAILY Pramipexole Dihydrochloride (Pramipexole Dihydrochlori), 0.5 MG PO HS Propranolol Hcl (Propranolol Hcl Er), 120 MG PO QAM Ranitidine Hcl (Zantac), 150 MG PO BID Tramadol Hcl (Ultram), 50 MG PO QID Review of Systems Constitutional: + weight loss, + weakness, + fatigue Respiratory: + shortness of breath, + dyspnea on exertion, + dyspnea at rest Abdomen: No pain, No nausea, No vomiting, No diarrhea, No constipation, No GI bleeding, No problem reported Neurologic: + memory loss (Dementia), + paralysis, + weakness, + vertigo, + balance problems Physical Ex - H&P Physical Exam Vital Signs Date Time Temp Pulse Resp B/P (MAP) Pulse Ox O2 Delivery O2 Flow Rate FiO2 5/16/18 13:49 68 18 137/83 95 Room Air 11/17/17 12:19 67 18 151/75 96 Room Air 11/17/17 11:11 70 11/17/17 10:58 36.9 67 18 156/90 95 Room Air General Appearance: no apparent distress (Very pale), + pertinent finding ( Very pleasant, very hard of hearing with baseline dementia) Head: normocephalic, atraumatic Eyes: sclerae normal Neck: no carotid bruits, trachea midline Respiratory/Chest: lungs clear, normal breath sounds, no respiratory distress Cardiovascular: regular rate, rhythm, no edema, no gallop, no JVD Abdomen/GI: normal bowel sounds, non tender, soft Extremities/Musculoskelatal: normal inspection, no calf tenderness, normal capillary refill, no pedal edema Neurologic/Psych: no motor/sensory deficits, alert, normal mood/affect, + pertinent finding (Increased forgetfulness, baseline dementia) Diagnostics - H&P Diagnostics Laboratory Results Results Past 24 Hours Test 11/17/17 11:20 11/17/17 12:34 11/17/17 14:50 11/17/17 14:53 Range/Units White Blood Count 1.39 4.8-10.8 K/uL Red Blood Count 2.85 4.2-5.4 M/uL Hemoglobin 8.1 12.0-16.0 g/dL Hematocrit 24.8 37-47 % Mean Corpuscular Volume 87.0 80-100 fL Mean Corpuscular Hemoglobin 28.4 25-34 pg Mean Corpuscular Hemoglobin Concent 32.7 32-36 g/dl Platelet Count 244 130-400 K/uL Mean Platelet Volume 10.3 7.4-10.4 fL RDW Standard Deviation 73.4 36.4-46.3 fL RDW Coefficient of Variation 23.8 11.5-14.5 % Neutrophils % (Manual) 17.0 % Lymphocytes % (Manual) 57.0 % Monocytes % (Manual) 1.0 % Eosinophils % (Manual) 12.0 % Basophils % (Manual) 9.0 % Myelocytes % 3.0 % Blast Cells % 1.0 % Neutrophils # (Manual) 0.24 1.4-6.5 K/uL Total Absolute Neutrophils 0.24 1.4-6.5 K/uL Lymphocytes # (Manual) 0.79 1.2-3.4 K/uL Total Absolute Lymphocytes 0.79 1.2-3.4 K/uL Monocytes # (Manual) 0.01 0.11-0.59 K/uL Eosinophils # (Manual) 0.17 0-0.5 K/uL Basophils # (Manual) 0.13 0-0.2 K/uL Myelocytes # 0.04 0-0 K/uL Blast Cells # 0.01 0-0 K/uL Blood Smear Review Poikilocytosis PRESENT Anisocytosis PRESENT Acanthocytes 1+ Prothrombin Time 10.0 9.0-12.0 SECONDS Prothromb Time International Ratio 1.0 0.9-1.1 Activated Partial Thromboplast Time 21.9 21.0-31.0 SECONDS Partial Thromboplastin Ratio 0.8 Sodium Level 138 136-145 mmol/L Potassium Level 4.1 3.5-5.1 mmol/L Chloride Level 104 98-107 mmol/L Carbon Dioxide Level 28 21-32 mmol/L Anion Gap 6.0 3-11 mmol/L Blood Urea Nitrogen 10 7-18 mg/dl Creatinine 0.72 0.60-1.20 mg/dl Est Creatinine Clear Calc Drug Dose 45.5 ml/min Estimated GFR () 87.3 Estimated GFR (Non- 75.3 BUN/Creatinine Ratio 13.7 10-20 Random Glucose 91 70-99 mg/dl Calcium Level 9.6 8.5-10.1 mg/dl Total Bilirubin 0.6 0.2-1 mg/dl Direct Bilirubin 0.1 0-0.2 mg/dl Aspartate Amino Transf (AST/SGOT) 12 15-37 U/L Alanine Aminotransferase (ALT/SGPT) 11 12-78 U/L Alkaline Phosphatase 56 45-117 U/L Total Protein 7.7 6.4-8.2 gm/dl Albumin 3.6 3.4-5.0 gm/dl Urine Color YELLOW Urine Appearance CLOUDY CLEAR Urine pH 7.0 4.5-7.5 Urine Specific [place] 1.016 1.000-1.030 Urine Protein NEG NEG Urine Glucose (UA) NEG NEG Urine Ketones NEG NEG Urine Occult Blood NEG NEG Urine Nitrite NEG NEG Urine Bilirubin NEG NEG Urine Urobilinogen NEG NEG Urine Leukocyte Esterase TRACE NEG Urine WBC (Auto) 1-5 0-5 /hpf Urine RBC (Auto) 0-4 0-4 /hpf Urine Hyaline Casts (Auto) 1-5 0-5 /lpf Urine Epithelial Cells (Auto) >30 0-5 /lpf Urine Bacteria (Auto) NEG NEG Test 11/17/17 14:55 Range/Units CXR normal Impression - H&P Impression Assessment and Plan ANEMIA /NEUTROPENIA /thrombocytopenia: Diagnosed since 2011 next with progression of symptoms-possible primary bone marrow disease Patient refused to have bone marrow biopsy in past Peripheral blood smear shows presence of blast suggestive of 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 transition Flow cytometry ordered Hematology oncology consulted Appreciate input Patient will be transfused for hemoglobin less than 7, R symptom of shortness of breath dyspnea on exertion, increased weakness and fatigue Platelet count 54 No active bleeding noted Monitor CBC Avoid antiplatelets or anticoagulation Transfusion for platelet count less than 5K SIGNIFICANT WEIGHT LOSS/POOR APPETITE Possibly secondary to above Outpatient CT abdomen pelvis showed no evidence of malignancy HEADACHE /DIZZY SPELL : Possible secondary to anemia CT head negative for acute change paranasal sinusitis empiric abx with Augmentin DNR/DNI DVT PROPHYLAXIS : moderate to high risk SCD and Teds Pharmacological anticoagulation avoided secondary to severe anemia and thrombocytopenia DISPOSITION Resident at [facility] Wants to return back to [facility] after blood transfusion Very poor prognosis with bone marrow disorder/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 Palliative care consulted Plan of care of updated to [id number] 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 ) Understands improved prognosis in the setting of advanced age, limited treatment options available Willing for hospice palliative care consult Palliative care consulted VTE Prophylaxis Risk Level: High Physical Exam (per Admitting): General Appearance: no apparent distress (Very pale), + pertinent finding ( Very pleasant, very hard of hearing with baseline dementia) Head: normocephalic, atraumatic Eyes: sclerae normal Neck: no carotid bruits, trachea midline Respiratory/Chest: lungs clear, normal breath sounds, no respiratory distress Cardiovascular: regular rate, rhythm, no edema, no gallop, no JVD Abdomen/GI: normal bowel sounds, non tender, soft Extremities/Musculoskelatal: normal inspection, no calf tenderness, normal capillary refill, no pedal edema Neurologic/Psych: no motor/sensory deficits, alert, normal mood/affect, + pertinent finding (Increased forgetfulness, baseline dementia) Hospital Course ANEMIA /NEUTROPENIA /thrombocytopenia: Diagnosed since 2011 next with progression of symptoms-possible primary bone marrow disease Patient refused to have bone marrow biopsy in past Peripheral blood smear shows presence of blast suggestive of 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 transition Flow cytometry ordered Hematology oncology consulted-Appreciate input Patient will be transfused for hemoglobin less than 7, R symptom of shortness of breath dyspnea on exertion, increased weakness and fatigue Not willing to do any further w/u and or Treatment for suspected duagnosis Counts are reasonable today Discussed with the Daughter and Son Symptomatic management Received 1 unit of blood Hb 8.9 11/19 Symptomatically better 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 Followed by Oncologist Has Neutropenia Will need regular blood check and symptomatic management Discussed with the daughter-agreeable Frequent UTI Will give levaquin prophylaxis SIGNIFICANT WEIGHT LOSS/POOR APPETITE Possibly secondary to above Outpatient CT abdomen pelvis showed no evidence of malignancy HEADACHE /DIZZY SPELL : Possible secondary to anemia CT head negative for acute change paranasal sinusitis empiric abx with Augmentin No more episode DNR/DNI DVT PROPHYLAXIS : moderate to high risk SCD and Teds Pharmacological anticoagulation avoided secondary to severe anemia and thrombocytopenia DISPOSITION Resident at [facility] Wants to return back to [facility] after blood transfusion Very poor prognosis with bone marrow disorder/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 Discharge Instructions Date of Service November 19, 2017. 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 Additional Information Patient informed of condition: Yes Advance Directives: No DNR: Yes Level of Care: Skilled Communicable Disease: No Prognosis: Stable Oxygen at (LPM): 2 liters/min via NC as needed De Jesus Catheter: No Instructions / Follow-Up Instructions / Follow-Up Dr Koehler's office will call with appointment. Please check CBC with Diff 2 times a week and report to Dr Koehler Current Hospital Diet Patient's current hospital diet: Regular Diet Discharge Diet Recommended Diet: Regular Diet Pending Studies Studies pending at discharge: no Medical Emergencies . Who to Call and When: Medical Emergencies: If at any time you feel your situation is an emergency, please call 911 immediately. . Non-Emergent Contact Non-Emergency issues call your: Primary Care Provider . Past History Medical & Surgical History: (1) Pancytopenia (2) Anemia (3) Palliative care encounter (4) Hypertension (5) S/P knee replacement (6) Status post appendectomy (7) Status post hysterectomy (8) Status post cardiac catheterization . "Provider Documentation" section prepared by Neisha Quiros. . Manager Property Recommendations Manager Property Recommendations: Has Neutropenia-Needs a single room and Neutropenic precaution.Started on Prophylactic Levaquin. If any fever >38.0 with associated symptoms of infection will need to be sent to ER. Core Measure Problem Core Measures: None <Electronically signed by Neisha Quiros M.D.> Signed: 11/19/17 [id number] Signed: Additional Copies To Maritza Osuna D.O.
[2017-11-20] MEDS ORDERED: LEVOFLOXACIN 250 MG TAB PO SCH (11:00)
== END 2017-11-19 19:00 | DRG 842 ==
LOC: EDBD 10:49 → C.EDC 10:51 → C.4E 14:54 → ENRESERV 15:13
PROVIDERS: ADMIT Hospitalist; ATTEND Internal Medicine
DX: C95.90 Leukemia, unspecified not having achieved remission (principal); D46.9 Myelodysplastic syndrome, unspecified; D64.9 Anemia, unspecified; D70.9 Neutropenia, unspecified; D69.6 Thrombocytopenia, unspecified; R63.0 Anorexia; R63.4 Abnormal weight loss; R51 Headache; R42 Dizziness and giddiness; J32.9 Chronic sinusitis, unspecified; G25.81 Restless legs syndrome; Z66 Do not resuscitate; Z86.73 Personal history of transient ischemic attack (TIA), and cerebral infarction without residual deficits; Z87.19 Personal history of other diseases of the digestive system; Z87.891 Personal history of nicotine dependence; Z79.891 Long term (current) use of opiate analgesic; Z79.899 Other long term (current) drug therapy; Z82.49 Family history of ischemic heart disease and other diseases of the circulatory system; Z80.1 Family history of malignant neoplasm of trachea, bronchus and lung; Z90.49 Acquired absence of other specified parts of digestive tract; Z90.710 Acquired absence of both cervix and uterus; Z96.641 Presence of right artificial hip joint; Z96.659 Presence of unspecified artificial knee joint

== ENCOUNTER 2017-11-24 20:37 | Emergency (ER) | payer OTHER ==
[~2017-11-24 20:37] MED LIST changes: +FERR1TAB62 PO; +LCTX PO; +LVQ250 PO; +POTA-639 PO; +RANI150T3 PO
[2017-11-24 20:44] VITALS: TEMP 38
[2017-11-24] MEDS ORDERED: SODIUM CHLORIDE 0.9% 500ML 500 ML IV STA (21:00)
[2017-11-24] MEDS ORDERED: ONDANSETRON INJ 2 MG/ML 2 ML VIAL IV STA (21:00)
--- NOTE | 2017-11-24 21:03 | EMERGENCY ROOM VISIT NOTE ---
History Report prepared by Wil: Manan Gillette Under the Supervision of: Dr. Pradeep Mills M.D. First contact with patient: 20:44 Chief Complaint: VOMITING Stated Complaint: ILLNESS, VOMITING, NAUSEA History of Present Illness The patient is an 87 year old female who presents to the Emergency Room with complaints of persistent vomiting beginning today. The patient states that she vomited a lot today. The patient notes that she does not have any abdominal pain. Per nurse, the patient's vomit was dark brown in color. She notes that the patient also had a fever of 101.9 and is currently nauseous. She reports that the patient has a history of previous GI bleeds. Source of History: patient, nursing staff Onset: today Position: abdomen Quality: other (dark brown emesis) Timing: other (persistent) Associated Symptoms: + fevers (101.9), + nausea, No abdominal pain Review of Systems See HPI for pertinent positives & negatives. A total of 10 systems reviewed and were otherwise negative. Past Medical & Surgical Medical Problems: (1) Anemia (2) Cerebrovascular disease (3) Cholelithiasis (4) CVA (cerebral infarction) (5) Diverticular disease of colon (6) Diverticulitis (7) Dyslipidemia (8) Fever and neutropenia (9) GI bleed (10) Hip fracture (11) History of cervical cancer (12) History of Clostridium difficile infection (13) History of DVT (deep vein thrombosis) (14) Hypertension (15) Migraine (16) Palliative care encounter (17) Pancytopenia Surgical Problems: (1) S/P knee replacement (2) Status post appendectomy (3) Status post cardiac catheterization (4) Status post hysterectomy Family History Hypertension MOTHER Lung cancer BROTHER Social History Smoking Status: Former Smoker Drug Use: none Marital Status: Housing Status: assisted living Occupation Status: retired Current/Historical Medications Scheduled Calcium Carbonate-Vitamin D (Calcium 600 + D), 1 TAB PO QAM Ferrous Sulfate (Ferrous Sulfate), 325 MG PO BID Home O2 Therapy (Oxygen), 2 LITERS NA PRN Lactobacillus Acidophilus (Lactinex), 2 TAB PO BID Levofloxacin (Levofloxacin), 250 MG PO DAILY@11 Multiple Vitamin (Multivitamin), 1 TAB PO QAM Nutritional Supplements (Boost Breeze), 1 BOX PO BID Pramipexole Dihydrochloride (Pramipexole Dihydrochlori), 0.5 MG PO HS Propranolol Hcl (Propranolol Hcl Er), 120 MG PO QAM Ranitidine Hcl (Zantac), 150 MG PO HS Scheduled PRN Acetaminophen (Tylenol), 325 MG PO Q4 PRN for Pain or Fever Bisacodyl (Bisacodyl), 10 MG ID DAILY PRN for Constipation Magnesium Hydroxide (Milk Of Magnesia), 30 ML PO UD PRN for Constipation Sodium Phosphate/Biphosphate (Fleet Enema), 1 EA ID DAILY PRN for Constipation Allergies Coded Allergies: No Known Allergies (Unverified , 11/24/17) Physical Exam Vital Signs Date Time Temp Pulse Resp B/P (MAP) Pulse Ox O2 Delivery O2 Flow Rate FiO2 11/24/17 23:36 0 11/24/17 23:27 0 11/24/17 23:27 0 11/24/17 22:40 132/48 11/24/17 22:37 77 20 95 11/24/17 21:37 78 22 95 11/24/17 21:37 78 11/24/17 21:25 94 Room Air 11/24/17 20:44 38.0 74 18 115/56 93 Room Air 11/24/17 20:43 115/56 Physical Exam GENERAL: Awake, alert, well-appearing, in no acute distress HENT: Normocephalic, atraumatic. Oropharynx unremarkable. EYES: Normal conjunctiva. Sclera non-icteric. NECK: Supple. No nuchal rigidity. FROM. No JVD. RESPIRATORY: Clear to auscultation. CARDIAC: Regular rate, normal rhythm. Extremities warm and well perfused. Pulses equal. ABDOMEN: Soft, non-distended. No tenderness to palpation. No rebound or guarding. No masses. RECTAL: Deferred. MUSCULOSKELETAL: Chest examination reveals no tenderness. The back is symmetrical on inspection without obvious abnormality. There is no CVA tenderness to palpation. No joint edema. LOWER EXTREMITIES: Calves are equal size bilaterally and non-tender. No edema. No discoloration. NEURO: Normal sensorium. No sensory or motor deficits noted. SKIN: No rash or jaundice noted. RECTAL: Dark melanic stool, guaiac negative. Medical Decision & Procedures ER Provider Diagnostic Interpretation: Radiology results as stated below per my review and radiologist interpretation: AP CHEST WITH ABDOMINAL SERIES FINDINGS: An AP upright chest radiograph is compared to study dated 11/17/2017. Correlation is made with chest CT dated 05/19/2017. The examination is degraded by apical lordotic positioning. The heart is enlarged and there is atherosclerotic calcification of the thoracic aorta. The pulmonary vasculature is noncongested. Chronic interstitial thickening is similar to previous. Apical scarring is observed. No airspace consolidation or pleural effusion is identified. No pneumothorax is seen. The skeletal structures are osteopenic. Degenerative changes noted throughout the thoracic spine. There are healed left-sided rib fractures. Postoperative change is noted in the left humeral head. Supine and decubitus abdominal radiographs are correlated with abdominal CT dated 05/19/2017. There is a nonobstructed abdominal bowel gas pattern. No evidence of intraperitoneal free air is seen. Calcified gallstones are seen in the right upper quadrant. There is no radiographic evidence of nephrolithiasis. Phleboliths are noted in the pelvis. Lumbosacral spondylosis is observed. The lumbosacral spine and bony pelvis appear intact. There is a right hip arthroplasty. Arthritic change is noted in the left hip. IMPRESSION: 1. Cardiomegaly with no acute cardiopulmonary abnormality. 2. Nonobstructed abdominal bowel gas pattern. 3. Cholelithiasis. Electronically signed by: Jenaro Trevizo M.D. 11/24/2017 10:31 PM Laboratory Results 11/24/17 20:02 Red Blood Count 3.05, Mean Corpuscular Volume 88.2, Mean Corpuscular Hemoglobin 29.5, Mean Corpuscular Hemoglobin Concent 33.5, Neutrophils (%) (Auto) 28.1, Lymphocytes (%) (Auto) 59.0, Monocytes (%) (Auto) 9.4, Eosinophils (%) (Auto) 1.7, Basophils (%) (Auto) 0.9, Neutrophils # (Auto) 0.33, Lymphocytes # (Auto) 0.69, Monocytes # (Auto) 0.11, Eosinophils # (Auto) 0.02, Basophils # (Auto) 0.01 11/24/17 20:02 Test 11/24/17 20:02 11/24/17 21:22 11/24/17 22:55 White Blood Count 1.17 K/uL (4.8-10.8) Red Blood Count 3.05 M/uL (4.2-5.4) Hemoglobin 9.0 g/dL (12.0-16.0) Hematocrit 26.9 % (37-47) Mean Corpuscular Volume 88.2 fL (80-100) Mean Corpuscular Hemoglobin 29.5 pg (25-34) Mean Corpuscular Hemoglobin Concent 33.5 g/dl (32-36) Platelet Count 119 K/uL (130-400) Neutrophils (%) (Auto) 28.1 % Lymphocytes (%) (Auto) 59.0 % Monocytes (%) (Auto) 9.4 % Eosinophils (%) (Auto) 1.7 % Basophils (%) (Auto) 0.9 % Neutrophils # (Auto) 0.33 K/uL (1.4-6.5) Lymphocytes # (Auto) 0.69 K/uL (1.2-3.4) Monocytes # (Auto) 0.11 K/uL (0.11-0.59) Eosinophils # (Auto) 0.02 K/uL (0-0.5) Basophils # (Auto) 0.01 K/uL (0-0.2) RDW Standard Deviation 68.5 fL (36.4-46.3) RDW Coefficient of Variation 21.2 % (11.5-14.5) Immature Granulocyte % (Auto) 0.9 % Immature Granulocyte # (Auto) 0.01 K/uL (0.00-0.02) Platelet Estimate NORMAL Large Platelets 2+ Anisocytosis PRESENT Acanthocytes 1+ Anion Gap 5.0 mmol/L (3-11) Estimated GFR () 79.2 Estimated GFR (Non- 68.4 BUN/Creatinine Ratio 16.0 (10-20) Calcium Level 9.2 mg/dl (8.5-10.1) Total Bilirubin 1.0 mg/dl (0.2-1) Direct Bilirubin 0.3 mg/dl (0-0.2) Aspartate Amino Transf (AST/SGOT) 9 U/L (15-37) Alanine Aminotransferase (ALT/SGPT) 10 U/L (12-78) Alkaline Phosphatase 48 U/L (45-117) Total Creatine Kinase 14 U/L (26-192) Creatine Kinase MB < 0.5 ng/ml (0.5-3.6) Creatine Kinase MB Ratio (0-3.0) Troponin I < 0.015 ng/ml (0-0.045) Total Protein 7.7 gm/dl (6.4-8.2) Albumin 3.3 gm/dl (3.4-5.0) Lipase 41 U/L (73-393) Prothrombin Time 11.5 SECONDS (9.0-12.0) Prothromb Time International Ratio 1.1 (0.9-1.1) Activated Partial Thromboplast Time 25.0 SECONDS (21.0-31.0) Partial Thromboplastin Ratio 1.0 Urine Color DK YELLOW Urine Appearance CLOUDY (CLEAR) Urine pH 5.0 (4.5-7.5) Urine Specific [place] 1.025 (1.000-1.030) Urine Protein 1+ (NEG) Urine Glucose (UA) NEG (NEG) Urine Ketones NEG (NEG) Urine Occult Blood NEG (NEG) Urine Nitrite NEG (NEG) Urine Bilirubin NEG (NEG) Urine Urobilinogen NEG (NEG) Urine Leukocyte Esterase NEG (NEG) Urine WBC (Auto) 1-5 /hpf (0-5) Urine RBC (Auto) 0-4 /hpf (0-4) Urine Hyaline Casts (Auto) 5-10 /lpf (0-5) Urine Epithelial Cells (Auto) >30 /lpf (0-5) Urine Bacteria (Auto) NEG (NEG) Urine Renal Epithelial Cells /lpf (0-5) Urine Pathogenic Casts /lpf (0) Urine Yeast (Auto) (NONE PRSENT) Labs reviewed by ED physician. Medications Administered Medications (Trade) Dose Ordered Sig/Gin Route Start Time Stop Time Status Last Admin Dose Admin Sodium Chloride 500 ml @ 999 mls/hr Q31M STAT IV 11/24/17 21:00 11/24/17 21:30 DC 11/24/17 21:32 999 MLS/HR Ondansetron HCl (Zofran Inj) 4 mg NOW STAT IV 11/24/17 21:00 11/24/17 21:03 DC 11/24/17 21:32 4 MG Piperacillin Sod/ Tazobactam Sod (Zosyn Iv) 4.5 gm NOW STAT IV 11/24/17 21:57 11/24/17 21:59 DC 11/24/17 22:39 4.5 GM Daptomycin 350 mg/ Syringe 7 ml @ 3.5 mls/min TODAY@2157 IV 11/24/17 21:57 11/24/17 23:59 DC 11/24/17 22:40 3.5 MLS/MIN ECG Per My Interpretation Indication: vomiting Rate (beats per minute): 77 Rhythm: normal sinus Findings: other (No ST elevation/depression) ED Course 2050: Past medical records reviewed. The patient was evaluated in room B9. A complete history and physical examination was performed. 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 2100: Zofran Inj 4mg IV, Sodium Chloride 500 ml @ 999 mls/hr 2156: Piperacillin Sod/Tazobactam Sod 4.5gm IV 2208: Upon reexamination the patient is stable. I discussed results and treatment plan with the patient. She verbalizes agreement and understanding. I spoke with Dr. Doll from the [facility]. The patient will be evaluated for further management. Medical Decision Differential diagnosis: Etiologies such as gastroenteritis, food borne illness, infections, appendicitis , diverticulitis, inflammatory bowel disease, obstruction, GI bleed, biliary pathology, as well as others were entertained. This is an 87-year-old female who presents emergency department complaining of vomiting. Serial abdominal examinations were performed and the patient in the emergency department and at no time to the patient exhibited surgical abdomen. In addition the patient is pancytopenic. For this reason and because she is running a fever she was pancultured up and started on antibiotics. I did discuss her case with the hospitalist service to have the patient admitted. She did receive normal saline bolus here in the emergency department. The patient stated she needed to use the restroom and after returning from the restroom stated she could not breathe and went into cardiac arrest. The patient was in known DO NOT RESUSCITATE DO NOT INTUBATE. I quickly discussed with the patient's son her dire straits who agreed that the patient is a DO NOT RESUSCITATE. After this the patient quickly . She was pronounced at 2337. Medication Reconcilliation Current Medication List: was personally reviewed by me Blood Pressure Screening Patient's blood pressure: Normal blood pressure Blood pressure disposition: Did not require urgent referral Consults Time Called: 2204 [facility] Call: 2208 I discussed the patient's case with Dr. Doll, He has agreed to evaluate the patient for further management and care. Impression Primary Impression: Vomiting Additional Impressions: Pancytopenia Cardiac arrest Scribe Attestation The scribe's documentation has been prepared under my direction and personally reviewed by me in its entirety. I confirm that the note above accurately reflects all work, treatment, procedures, and medical decision making performed by me. Departure Information Dispostion Referrals Maritza Osuna D.O. (PCP) Patient Instructions My [facility] Problem Qualifiers Primary Impression: Vomiting Vomiting type: unspecified Vomiting Intractability: unspecified Nausea presence: unspecified Qualified Codes: R11.10 - Vomiting, unspecified
[2017-11-24] MEDS ORDERED: NUTR-1197 PO (21:19)
[2017-11-24 21:25] VITALS: O2SAT 94
[2017-11-24 21:33] LABS: ALBUMIN 3.3 gm/dl (3.4-5.0); ALKALINE PHOSPHATASE 48 U/L (45-117); ALT/SGPT 10 U/L (12-78); AST/SGOT 9 U/L (15-37); BLOOD UREA NITROGEN 13 mg/dl (7-18); CALCIUM 9.2 mg/dl (8.5-10.1); CARBON DIOXIDE 27 mmol/L (21-32); CKMB < 0.5 ng/ml (0.5-3.6); CREATININE 0.78 mg/dl (0.60-1.20); GLUCOSE 118 mg/dl (70-99); LIPASE 41 U/L (73-393); POTASSIUM 3.6 mmol/L (3.5-5.1); SODIUM 135 mmol/L (136-145); TOTAL PROTEIN 7.7 gm/dl (6.4-8.2)
[2017-11-24] MEDS ORDERED: MOML PO (21:41)
[2017-11-24] MEDS ORDERED: ACET-1311 PO (21:41)
[2017-11-24] MEDS ORDERED: OXGN (21:41)
[2017-11-24 21:49] LABS: HEMATOCRIT 26.9 % (37-47); MEAN CELL VOLUME 88.2 fL (80-100); MEAN CORPUSCULAR HEMOGLOBIN 29.5 pg (25-34); MEAN CORPUSCULAR HGB CONC 33.5 g/dl (32-36); PLATELET COUNT 119 K/uL (130-400); RED CELL DISTRIBUTION WIDTH CV 21.2 % (11.5-14.5); RED CELL DISTRIBUTION WIDTH SD 68.5 fL (36.4-46.3); WHITE BLOOD COUNT 1.17 K/uL (4.8-10.8)
[2017-11-24 21:49] LABS: INR 1.1 (0.9-1.1)
[2017-11-24] MEDS ORDERED: SODIENE PR (21:49)
[2017-11-24] MEDS ORDERED: BISA10SU5 PR (21:49)
[2017-11-24 21:57] LABS: BASO % 0.9 %; BASO ABS # 0.01 K/uL (0-0.2); EOS % 1.7 %; EOS ABS # 0.02 K/uL (0-0.5); IG# 0.01 K/uL (0.00-0.02); LYMPH ABS # 0.69 K/uL (1.2-3.4); MONO % 9.4 %; MONO ABS # 0.11 K/uL (0.11-0.59); NEUT % 28.1 %; NEUT ABS # 0.33 K/uL (1.4-6.5)
[2017-11-24] MEDS ORDERED: PIPERACILLIN/TAZOBACTAM 4.5 GM/100ML D5W IV STA (21:57)
[2017-11-24] MEDS ORDERED: SODIUM CHLORIDE 0.9% IV STA (21:57)
[2017-11-24] MEDS ORDERED: DAPTOmycin IV 350 MG in SYRINGE 0 ML IV SCH (21:57)
[2017-11-24] MEDS ORDERED: DAPTOMYCIN IV STA (21:57)
--- NOTE | 2017-11-24 22:33 | DIAGNOSTIC IMAGING REPORT ---
AP CHEST WITH ABDOMINAL SERIES CLINICAL HISTORY: Vomiting. FINDINGS: An AP upright chest radiograph is compared to study dated 11/17/2017. Correlation is made with chest CT dated 05/19/2017. The examination is degraded by apical lordotic positioning. The heart is enlarged and there is atherosclerotic calcification of the thoracic aorta. The pulmonary vasculature is noncongested. Chronic interstitial thickening is similar to previous. Apical scarring is observed. No airspace consolidation or pleural effusion is identified. No pneumothorax is seen. The skeletal structures are osteopenic. Degenerative changes noted throughout the thoracic spine. There are healed left-sided rib fractures. Postoperative change is noted in the left humeral head. Supine and decubitus abdominal radiographs are correlated with abdominal CT dated 05/19/2017. There is a nonobstructed abdominal bowel gas pattern. No evidence of intraperitoneal free air is seen. Calcified gallstones are seen in the right upper quadrant. There is no radiographic evidence of nephrolithiasis. Phleboliths are noted in the pelvis. Lumbosacral spondylosis is observed. The lumbosacral spine and bony pelvis appear intact. There is a right hip arthroplasty. Arthritic change is noted in the left hip. IMPRESSION: 1. Cardiomegaly with no acute cardiopulmonary abnormality. 2. Nonobstructed abdominal bowel gas pattern. 3. Cholelithiasis. Electronically signed by: Jenaro Trevizo M.D. 11/24/2017 10:31 PM Dictated Date/Time: 11/24/2017 10:29 PM
[2017-11-24 22:37] VITALS: O2SAT 95
[2017-11-24 22:40] VITALS: BP 132/48
[2017-11-24] MEDS ORDERED: ONDANSETRON INJ 2 MG/ML 2 ML VIAL IV PRN (23:15)
[2017-11-24] MEDS ORDERED: MAGNESIUM HYDROXIDE SUSP 30 ML UDC PO PRN ×2 (23:15)
[2017-11-24] MEDS ORDERED: VANCOMYCIN CONSULT ACTIVE PRN (23:15)
[2017-11-24] MEDS ORDERED: ALUMINUM/MAGNESIUM/SIMETH (MAALOX MAX) 30 ML UDC PO PRN (23:15)
[2017-11-24] MEDS ORDERED: ACETAMINOPHEN 325 MG TAB PO PRN ×2 (23:15)
[2017-11-24] MEDS ORDERED: PIPERACILL/TAZOBAC CONSULT ACTIVE PRN (23:15)
[2017-11-24 23:36] VITALS: PULSE 0
[2017-11-25] MEDS ORDERED: PIPERACILL/TAZOBAC IV 3.375 GM in DEXTROSE 5% 100ML 100 ML IV SCH ×2
--- NOTE | 2017-11-25 00:07 | History and Physical ---
History & Physical Date & Time of Service: November 24, 2017 at 23:47 Chief Complaint: Illness, Vomiting, Nausea Primary Care Physician: Cristina Dutton M.D. History of Present Illness Source: patient, family, clinic records, hospital records This is an 87 year old female with a history of pancytopenia. She has had this chronically and has not wanted bone marrow biopsy or further studies done. Does receive intermittent transfusions. Was recently in the hospital -- at that time, met with palliative care, did not want any extraordinary measures and only conservative management. She was discharged to [facility] - sent back due to nausea/vomiting and streaks of blood in the vomitus. I saw her in the ER; she felt fine, states she's eager to get back to [facility]. Met with patient's son who mentions no extraordinary measures should be done; will consider hospice, but agreeable to plan to admit for now. Past Medical/Surgical History Medical Problems: (1) Anemia (2) Cerebrovascular disease (3) Cholelithiasis (4) CVA (cerebral infarction) (5) Dehydration (6) Diverticular disease of colon (7) Diverticulitis (8) Dyslipidemia (9) Fever and neutropenia (10) GI bleed (11) Hip fracture (12) History of cervical cancer (13) History of Clostridium difficile infection (14) History of DVT (deep vein thrombosis) (15) Hypertension (16) Knee effusion (17) Laceration (18) Migraine (19) Palliative care encounter (20) Weakness (21) Weakness Surgical Problems: (1) S/P knee replacement (2) Status post appendectomy (3) Status post cardiac catheterization (4) Status post hysterectomy Family History Hypertension MOTHER Lung cancer BROTHER Social History Smoking Status: Former Smoker Drug Use: none Marital Status: Housing status: lives alone, assisted living Occupational Status: retired Immunizations History of Influenza Vaccine: Yes Influenza Vaccine Date: May 08, 2016 History of Pneumococcal: Yes Pneumococcal Date: Jul 27, 2014 Allergies Coded Allergies: No Known Allergies (Unverified , 11/24/17) Home Medications Scheduled Calcium Carbonate-Vitamin D (Calcium 600 + D), 1 TAB PO QAM Ferrous Sulfate (Ferrous Sulfate), 325 MG PO BID Home O2 Therapy (Oxygen), 2 LITERS NA PRN Lactobacillus Acidophilus (Lactinex), 2 TAB PO BID Levofloxacin (Levofloxacin), 250 MG PO DAILY@11 Multiple Vitamin (Multivitamin), 1 TAB PO QAM Nutritional Supplements (Boost Breeze), 1 BOX PO BID Pramipexole Dihydrochloride (Pramipexole Dihydrochlori), 0.5 MG PO HS Propranolol Hcl (Propranolol Hcl Er), 120 MG PO QAM Ranitidine Hcl (Zantac), 150 MG PO HS Scheduled PRN Acetaminophen (Tylenol), 325 MG PO Q4 PRN for Pain or Fever Bisacodyl (Bisacodyl), 10 MG ID DAILY PRN for Constipation Magnesium Hydroxide (Milk Of Magnesia), 30 ML PO UD PRN for Constipation Sodium Phosphate/Biphosphate (Fleet Enema), 1 EA ID DAILY PRN for Constipation Review of Systems Constitutional: + weakness, No fever, No chills Eyes: No worsening of vision ENT: No hearing loss Respiratory: No cough, No sputum, No wheezing, No shortness of breath, No dyspnea on exertion, No dyspnea at rest, No hemoptysis Cardiovascular: No chest pain, No edema, No claudication, No palpitations Abdomen: + nausea, + vomiting, No pain, No diarrhea, No constipation, No GI bleeding Musculoskeletal: No joint pain, No muscle pain Genitourinary - Female: No dysuria, No urinary frequency, No urinary urgency Neurologic: + weakness, No numbness/tingling, No vertigo, No balance problems Psychiatric: No depression symptoms, No anxiety, No insomnia Endocrine: No fatigue Hematologic / Lymphatic: + abnormal bleeding/bruising Integumentary: No rash Allergic / Immunologic: No environmental allergies, No seasonal allergies Physical Exam Vital Signs Date Time Temp Pulse Resp B/P (MAP) Pulse Ox O2 Delivery O2 Flow Rate FiO2 11/24/17 22:40 132/48 11/24/17 22:37 77 20 95 11/24/17 21:37 78 22 95 11/24/17 21:37 78 11/24/17 21:25 94 Room Air 11/24/17 20:44 38.0 74 18 115/56 93 Room Air 11/24/17 20:43 115/56 General Appearance: no apparent distress Head: normocephalic, atraumatic Eyes: normal inspection ENT: + pertinent finding (hard of hearing) Respiratory/Chest: lungs clear, normal breath sounds, no respiratory distress, no accessory muscle use Cardiovascular: regular rate, rhythm, no edema, no murmur Abdomen/GI: normal bowel sounds, non tender, soft Extremities/Musculoskelatal: normal inspection, no calf tenderness, normal capillary refill, no pedal edema, normal range of motion Neurologic/Psych: lining maker II-XII nml as tested, no motor/sensory deficits, alert, normal mood/affect, oriented x 3 Skin: normal color Lymphatic: no adenopathy Diagnostics Laboratory Results Results Past 24 Hours Test 11/24/17 20:02 11/24/17 21:22 11/24/17 22:55 Range/Units White Blood Count 1.17 4.8-10.8 K/uL Red Blood Count 3.05 4.2-5.4 M/uL Hemoglobin 9.0 12.0-16.0 g/dL Hematocrit 26.9 37-47 % Mean Corpuscular Volume 88.2 80-100 fL Mean Corpuscular Hemoglobin 29.5 25-34 pg Mean Corpuscular Hemoglobin Concent 33.5 32-36 g/dl Platelet Count 119 130-400 K/uL Neutrophils (%) (Auto) 28.1 % Lymphocytes (%) (Auto) 59.0 % Monocytes (%) (Auto) 9.4 % Eosinophils (%) (Auto) 1.7 % Basophils (%) (Auto) 0.9 % Neutrophils # (Auto) 0.33 1.4-6.5 K/uL Lymphocytes # (Auto) 0.69 1.2-3.4 K/uL Monocytes # (Auto) 0.11 0.11-0.59 K/uL Eosinophils # (Auto) 0.02 0-0.5 K/uL Basophils # (Auto) 0.01 0-0.2 K/uL RDW Standard Deviation 68.5 36.4-46.3 fL RDW Coefficient of Variation 21.2 11.5-14.5 % Immature Granulocyte % (Auto) 0.9 % Immature Granulocyte # (Auto) 0.01 0.00-0.02 K/uL Platelet Estimate NORMAL Large Platelets 2+ Anisocytosis PRESENT Acanthocytes 1+ Sodium Level 135 136-145 mmol/L Potassium Level 3.6 3.5-5.1 mmol/L Chloride Level 103 98-107 mmol/L Carbon Dioxide Level 27 21-32 mmol/L Anion Gap 5.0 3-11 mmol/L Blood Urea Nitrogen 13 7-18 mg/dl Creatinine 0.78 0.60-1.20 mg/dl Estimated GFR () 79.2 Estimated GFR (Non- 68.4 BUN/Creatinine Ratio 16.0 10-20 Random Glucose 118 70-99 mg/dl Calcium Level 9.2 8.5-10.1 mg/dl Total Bilirubin 1.0 0.2-1 mg/dl Direct Bilirubin 0.3 0-0.2 mg/dl Aspartate Amino Transf (AST/SGOT) 9 15-37 U/L Alanine Aminotransferase (ALT/SGPT) 10 12-78 U/L Alkaline Phosphatase 48 45-117 U/L Total Creatine Kinase 14 26-192 U/L Creatine Kinase MB < 0.5 0.5-3.6 ng/ml Creatine Kinase MB Ratio 0-3.0 Troponin I < 0.015 0-0.045 ng/ml Total Protein 7.7 6.4-8.2 gm/dl Albumin 3.3 3.4-5.0 gm/dl Lipase 41 73-393 U/L Prothrombin Time 11.5 9.0-12.0 SECONDS Prothromb Time International Ratio 1.1 0.9-1.1 Activated Partial Thromboplast Time 25.0 21.0-31.0 SECONDS Partial Thromboplastin Ratio 1.0 Urine Color DK YELLOW Urine Appearance CLOUDY CLEAR Urine pH 5.0 4.5-7.5 Urine Specific [place] 1.025 1.000-1.030 Urine Protein 1+ NEG Urine Glucose (UA) NEG NEG Urine Ketones NEG NEG Urine Occult Blood NEG NEG Urine Nitrite NEG NEG Urine Bilirubin NEG NEG Urine Urobilinogen NEG NEG Urine Leukocyte Esterase NEG NEG Urine WBC (Auto) 1-5 0-5 /hpf Urine RBC (Auto) 0-4 0-4 /hpf Urine Hyaline Casts (Auto) 5-10 0-5 /lpf Urine Epithelial Cells (Auto) >30 0-5 /lpf Urine Bacteria (Auto) NEG NEG Urine Renal Epithelial Cells 0-5 /lpf Urine Pathogenic Casts 0 /lpf Urine Yeast (Auto) NONE PRSENT Microbiology Results 11/24/17 Blood Culture, Received Pending 11/24/17 Blood Culture, Received Pending 11/24/17 Urine Culture, Received Pending Diagnostic Radiology AP CHEST WITH ABDOMINAL SERIES CLINICAL HISTORY: Vomiting. FINDINGS: An AP upright chest radiograph is compared to study dated 11/17/2017. Correlation is made with chest CT dated 05/19/2017. The examination is degraded by apical lordotic positioning. The heart is enlarged and there is atherosclerotic calcification of the thoracic aorta. The pulmonary vasculature is noncongested. Chronic interstitial thickening is similar to previous. Apical scarring is observed. No airspace consolidation or pleural effusion is identified. No pneumothorax is seen. The skeletal structures are osteopenic. Degenerative changes noted throughout the thoracic spine. There are healed left-sided rib fractures. Postoperative change is noted in the left humeral head. Supine and decubitus abdominal radiographs are correlated with abdominal CT dated 05/19/2017. There is a nonobstructed abdominal bowel gas pattern. No evidence of intraperitoneal free air is seen. Calcified gallstones are seen in the right upper quadrant. There is no radiographic evidence of nephrolithiasis. Phleboliths are noted in the pelvis. Lumbosacral spondylosis is observed. The lumbosacral spine and bony pelvis appear intact. There is a right hip arthroplasty. Arthritic change is noted in the left hip. IMPRESSION: 1. Cardiomegaly with no acute cardiopulmonary abnormality. 2. Nonobstructed abdominal bowel gas pattern. 3. Cholelithiasis. EKG Normal sinus rhythm Low voltage QRS Borderline ECG Impression Assessment and Plan This is an 87 year old female with a history of pancytopenia - presents with nausea/vomiting Neutropenic Fever - leukopenia, low neutrophil count - fever on admission - 38.0 - probably underlying MDS - will treat with Vanc + Zosyn for now - monitor blood counts Anemia/Thrombocytopenia - monitor blood counts - streaks of blood in her vomitus as per [facility] records - Hgb stable, 9.0 at this time DVT ppx - SCDs due to thrombocytopenia/anemia DNR - does not want any biopsy - and will consider hospice to prevent future readmissions back to [facility] when stable Resuscitation Status VTE Prophylaxis Will order VTE Prophylaxis: Yes
[2017-11-25] MEDS ORDERED: PATIENT'S HEIGHT AND/OR WEIGHT NEEDED SCH (00:30)
[2017-11-25] MEDS ORDERED: LACTOBACILLUS ACIDOPHILUS (FLORANEX) TAB PO SCH (09:00)
[2017-11-25] MEDS ORDERED: NON-FORMULARY MEDICATION (Ferrous Sulfate 325 MG) PO SCH (09:00)
[2017-11-25] MEDS ORDERED: VANCOMYCIN IV 1,000 MG in SODIUM CHLORIDE 0.9% 250ML 250 ML IV SCH (09:00)
[2017-11-25] MEDS ORDERED: BOOST BREEZE NUTRITION DRINK 1 BOX PO SCH (09:00)
[2017-11-25] MEDS ORDERED: MULTIVITAMIN TAB PO SCH (09:00)
[2017-11-25] MEDS ORDERED: PROPRANOLOL HCL 120 MG PO SCH (09:00)
[2017-11-25] MEDS ORDERED: PRAMIPEXOLE DIHYDROCHLORIDE 0.5 MG TAB PO SCH (21:00)
[2017-11-25] MEDS ORDERED: RANITIDINE HCL 150 MG TAB PO SCH (21:00)
== END 2017-11-24 23:52 | disposition expired ==
LOC: EDBD 20:37 → C.EDB 20:38 → ENRESERV 23:26 → CANBEDREQ 23:39 → C.EDA 23:52
DX: R11.2 Nausea with vomiting, unspecified (principal); D61.818 Other pancytopenia; I46.9 Cardiac arrest, cause unspecified; K92.1 Melena; I25.10 Atherosclerotic heart disease of native coronary artery without angina pectoris; E78.5 Hyperlipidemia, unspecified; I10 Essential (primary) hypertension; Z86.73 Personal history of transient ischemic attack (TIA), and cerebral infarction without residual deficits; Z87.19 Personal history of other diseases of the digestive system; Z87.891 Personal history of nicotine dependence; Z79.899 Other long term (current) drug therapy